=== PATIENT | female | born 1950 | race Caucasian/White ===

== ENCOUNTER 2020-03-30 11:10 | Outpatient (CLI) | payer MEDICARE, SELFPAY ==
--- NOTE | ~2020-03-30 | US_ITS ---
EXAMINATION: US venous doppler [facility] DATE: 03/30/2020 12:06 INDICATION: Bilateral lower limb pain. TECHNIQUE: Grayscale ultrasound images without and with compression and Doppler ultrasound images of the bilateral lower extremity veins were obtained. COMPARISON: 06/28/2011 FINDINGS: The visualized portions of right common femoral vein, profunda (deep) femoral vein, femoral vein, pop liteal vein, posterior tibial veins, peroneal veins, gastrocnemius vein and greater saphenous vein ou tflow are patent. 10.5 x 4.9 x 1.8 cm anechoic Garcia cyst at the right popliteal fossa. Noncompressible thrombus in the left lesser saphenous vein and in one of the paired posterior tibial veins at the left calf. The visualized portions of left common femoral vein, profunda femoral vein, f emoral vein, popliteal vein, peroneal veins, gastrocnemius vein and greater saphenous vein outflow ar e patent. 5.9 x 3.4 x 1.8 cm anechoic Garcia's cyst at the left popliteal fossa. IMPRESSION: 1. Deep venous thrombosis in the left knee in one of the paired posterior tibial veins at the left c kip with additional thrombus in the left lesser saphenous vein. 2. No deep venous thrombosis in the right lower limb. 3. Bilateral Garcia's cysts. Reviewed, dictated and finalized at location A. IMPRESSION: 1. Deep venous thrombosis in the left knee in one of the paired posterior tibi al veins at the left calf with additional thrombus in the left lesser saphenous vein. 2. No deep venous thrombosis in the right lower limb. 3. Bilateral Garcia's cysts.
--- NOTE | ~2020-03-30 | XR_ITS ---
XR knee RT 3V, XR knee LT 3V 03/30/2020 12:10 Indication: Bilateral knee pain Procedure: 3 views of each knee Comparison: 12/26/2013 Findings: There is severe bilateral tricompartment osteoarthritis of the knees. Small bilateral knee effusions. No acute fracture or traumatic malalignment. No focal soft tissue abnormality. No radiopaq ue foreign bodies. Impression: 1: Severe bilateral tricompartment osteoarthritis of the knees. Reviewed, dictated and finalized at location A. Impression: 1: Severe bilateral tricompartment osteoarthritis of the knees. Impression: 1: Severe bilateral tricompartment osteoarthritis of the knees.
== END 2020-03-30 11:11 | disposition home or self-care (01) ==
LOC: ANHIMG 11:12
PROVIDERS: PCP Family Medicine; Visit Provider Family Medicine
DX: M79.669 Pain in unspecified lower leg (principal); Z91.89 Other specified personal risk factors, not elsewhere classified; M25.561 Pain in right knee; M25.562 Pain in left knee; I82.442 Acute embolism and thrombosis of left tibial vein; I82.492 Acute embolism and thrombosis of other specified deep vein of left lower extremity; M71.22 Synovial cyst of popliteal space [Baker], left knee; M71.21 Synovial cyst of popliteal space [Baker], right knee; M17.0 Bilateral primary osteoarthritis of knee
CPT/HCPCS: 73562; 93970

== ENCOUNTER 2020-09-17 06:53 | Outpatient (NON) | payer MEDICARE, SELFPAY ==
[2020-09-18 14:04] LABS: SARS-CoV-2 RNA PCR Negative
== END 2020-09-17 06:54 ==
LOC: ANHCOVIDDT 07:19
PROVIDERS: PCP Family Medicine; Visit Provider Physician Assistant
DX: Z20.828 Contact with and (suspected) exposure to other viral communicable diseases (principal)
CPT/HCPCS: 87635; C9803; U0003

== ENCOUNTER 2020-10-07 11:14 | Outpatient (NON) | payer MEDICARE, SELFPAY ==
[2020-10-07 23:58] LABS: SARS-CoV-2 RNA PCR Positive
== END 2020-10-07 11:15 ==
LOC: ANHCOVIDDT 11:15
PROVIDERS: PCP Family Medicine; Visit Provider Family Medicine
DX: U07.1 COVID-19 (principal)
CPT/HCPCS: 87635; C9803; U0003

== ENCOUNTER 2020-10-22 22:34 | Emergency (ER) | payer MEDICARE, SELFPAY ==
--- NOTE | ~2020-10-22 | XR_ITS ---
XR chest 2V 10/22/2020 23:21 Indication: SVT. Procedure: AP and lateral views of the chest Comparison: 06/27/2011 Findings: There is peripheral infiltrates of the right mid and lower lung zones. There is a hiatal he rnia. Heart size normal. Prominent right cardiophrenic angle fat pad. No significant effusion or pneu mothorax. Impression: 1: Peripheral infiltrates of the right mid and lower lung zone which may represent pneumonia versus a telectasis/scarring. Reviewed, dictated and finalized at location A. [facility] D[employer] DEPARTMENT Impression: 1: Peripheral infiltrates of the right mid and lower lung zone which may repres ent pneumonia versus atelectasis/scarring.
--- NOTE | 2020-10-22 22:30 | ED.ARRPALP ---
HPI - Arrhythmia/Palpitations General Chief Complaint: Arrhythmia/Palpitations Stated Complaint: SVT resolved Source: patient and EMS Mode of arrival: EMS Limitations: no limitations History of Present Illness HPI narrative: Patient is a 69-year-old female with a history of hypertension, prediabetes, anticoagulated on Xarelto, nonambulatory, who presents for evaluation of palpitations. Patient reportedly experienced palpitations while laying in bed, denied any chest pain, shortness of breath, but felt flushed. Patient called EMS and at the time of arrival, patient was noted to be slightly hypotensive and tachycardic at the 200s with rhythm strip consistent with SVT. Patient was given 6 mg of adenosine by EMS with improvement in tachycardia to sinus rhythm and complete symptom resolution. Patient presents without any current complaints. She states she feels well. She denies any chest pain. Patient states she was diagnosed with Covid infection at the end of September but never required hospitalization. She denies any current chest pain, shortness of breath, lightheadedness or dizziness. No recent medication changes. She does take thyroid medication and has not changed this recently. Related Data Allergies Allergy/AdvReac Type Severity Reaction Status Date / Time nitrofurantoin Allergy Unknown Skin Verified 08/13/20 09:31 Reaction TAPE Allergy Mild RASH Uncoded 08/13/20 09:31 Review of Systems Review of Systems: Narrative: CONSTITUTIONAL: Denies fever, chills, or sweats. EYES: Denies visual changes, redness, or discharge. ENT: Denies rhinorrhea, congestion, sore throat, or otalgia. CARDIOVASCULAR: Denies current chest pain, palpitations, or edema. RESPIRATORY: Denies cough or dyspnea. GASTROINTESTINAL: Denies abdominal pain, nausea, vomiting, or diarrhea. GENITOURINARY: Denies dysuria or hematuria. SKIN: Denies rash or itching. MUSCULOSKELETAL: Denies back pain, joint pain, or myalgia. NEUROLOGIC: Denies headache, numbness, or weakness. PSYCHIATRIC: History of anxiety and depression PMFSH Past Medical History Medical History Ambulatory dysfunction Depressive disorder, not elsewhere classified Detached retina (12/31/14) Essential (primary) hypertension Hypertension Hypothyroidism, unspecified Knee pain, bilateral Metabolic syndrome Physical deconditioning Prediabetes Screening for breast cancer Surgical History Surgical History H/O cataract extraction 06/01/2014 05/01/2014 H/O hernia repair (06/01/11) H/O: hysterectomy (2002) Total Family History Family History Other No family history of cardiovascular disease Social History Social History Smoking status: Current every day smoker Alcohol intake: never Gender identity (if verbalized by the patient): Female Exam Narrative: Exam Narrative: GENERAL: Awake, alert, conversant HEAD: Normocephalic, atraumatic. EYES: PERRLA and EOMI. ENT: Nares clear, no rhinorrhea or epistaxis. Mucous membranes moist. NECK: Supple. CHEST: No respiratory distress, breathing even and non labored HEART: Tachycardic rate, sinus rhythm ABDOMEN: Obese, Non distended, non tender EXTREMITIES: Normal range of motion. No edema. SKIN: Pale, warm, dry, no rash. NEURO:No focal deficits. Alert and oriented x3 Course Vital Signs Vital signs: Vital Signs Temperature 37.0 C 10/22/20 22:39 Pulse Rate 108 H 10/22/20 22:39 Respiratory Rate 20 10/22/20 22:39 Blood Pressure 122/73 10/22/20 22:39 Pulse Oximetry 97 10/22/20 22:39 Temperature 37.0 C 10/22/20 22:39 Pulse Rate 98 10/22/20 23:25 Respiratory Rate 18 10/22/20 23:25 Blood Pressure 142/83 H 10/22/20 23:25 Pulse Oximetry 94 10/22/20 23:25 MDM - Arrhythmia/Palpitat
--- NOTE | 2020-10-22 22:31 | ECG_ITS ---
Measurements Intervals [place] Rate: 109 P: 179 ID: 251 QRS: -87 QRSD: 138 T: 5 QT: 362 QTc: 489 Interpretive Statements SINUS TACHYCARDIA RIGHT BUNDLE BRANCH BLOCK LEFT ANTERIOR FASCICULAR BLOCK BASELINE ARTIFACT- I, II, AVR, AVF ABNORMAL ECG Electronically Signed On 10-23-2020 7:37:00 BEAUTICIAN APPRENTICE by Aden Hampton D.O.
[2020-10-22 22:39] VITALS: BP 122/73; PULSE 108; RESP 20; TEMP 37; O2SAT 97
[2020-10-22 22:47] VITALS: PULSE 106
[2020-10-22] MEDS: SODIUM CHLORIDE 0.9% IV 500 ML 999 ML IV CONT (22:50)
[2020-10-22 23:01] LABS: Basophils Percent Auto 0.4 % (0.2-1.2); Eosinophils Absolute Auto 0.1 K/mm3 (0-0.3); Eosinophils Percent Auto 0.6 % (0-4.4); Hematocrit 47.4 % (37.0-47.0); Hemoglobin 14.9 g/dL (12.0-15.0); Immature Granulocyte Absolute 0.03 K/mm3 (0.00-0.031); Immature Granulocyte Percent A 0.4 % (0-0.5); Lymphocytes Absolute Auto 2.42 K/mm3 (0.9-3.2); Lymphocytes Percent Auto 29.9 % (18.3-44.2); Mean Corpuscular HGB Conc 31.4 g/dl (32-36); Mean Corpuscular Hemoglobin 27.6 pg (26-34); Mean Corpuscular Volume 87.9 fl (80-100); Mean Platelet Volume 10.6 fl (7.4-10.4); Monocytes Absolute Auto 0.7 K/mm3 (0.1-0.6); Monocytes Percent Auto 8.1 % (2.6-8.5); Neutrophils Absolute Auto 4.9 K/mm3 (1.3-6.7); Neutrophils Percent Auto 60.6 % (45.5-73.1); Platelet Count Result 267 k/mm3 (150-375); Red Blood Count 5.39 M/mm3 (4.2-5.4); Red Cell Distribution Width 18.2 % (11.5-14.5); White Blood Count 8.1 K/mm3 (4.5-10.0)
[2020-10-22 23:20] LABS: Anion Gap 7 mmol/L (8-16); Blood Urea Nitrogen 21 mg/dL (7-17); Carbon Dioxide 31 mmol/L (22-30); Chloride 102 mmol/L (98-107); Estimated CRCL calculation 76 ml/min; Estimated Glomerular Filt Rate > 60; Glucose 170 mg/dL (65-105); Potassium 3.7 mmol/L (3.4-5.0); Sodium 140 mmol/L (137-145)
[2020-10-22 23:25] VITALS: BP 142/83; PULSE 98; RESP 18; O2SAT 94
--- NOTE | 2020-10-22 23:36 | PC.NURSE ---
[facility] called and update ETA to 0040
[2020-10-23 00:48] VITALS: PULSE 86; RESP 16; O2SAT 96
== END 2020-10-23 01:13 | disposition home or self-care (01) ==
PROVIDERS: Emergency Provider Emergency Medicine; PCP Family Medicine
DX: I47.1 Supraventricular tachycardia (principal); J18.9 Pneumonia, unspecified organism; Z79.01 Long term (current) use of anticoagulants; Z86.19 Personal history of other infectious and parasitic diseases
CPT/HCPCS: 36415; 71046; 80048; 84443; 85025; 93005; 96360; 99283; J7040

== ENCOUNTER 2021-01-07 10:40 | Outpatient (CLI) | payer MEDICARE, SELFPAY | END 2021-01-07 10:41 | disposition home or self-care (01) | LOC: ANHCOVIDVC 10:40 | PROVIDERS: PCP Family Medicine | DX: Z23 Encounter for immunization (principal) | CPT/HCPCS: 0001A; 91300 ==

== ENCOUNTER 2021-01-28 10:40 | Outpatient (CLI) | payer MEDICARE, SELFPAY | END 2021-01-28 10:41 | disposition home or self-care (01) | LOC: ANHCOVIDVC 10:40 | PROVIDERS: PCP Family Medicine | DX: Z23 Encounter for immunization (principal) | CPT/HCPCS: 0002A; 91300 ==

== ENCOUNTER 2021-12-15 12:35 | Emergency (ER) | payer MEDICARE, SELFPAY ==
--- NOTE | ~2021-12-15 | XR_ITS ---
XR knee RT 3V DATE: 12/15/2021 13:05 INDICATION: Medial knee pain. No injury. TECHNIQUE: 3 views including crosstable lateral COMPARISON: 03/30/2020 right knee FINDINGS: There is prominent tricompartment osteophytosis, but decreased severe at the medial compart ment with [id number]. There is particular spurring at all 3 compartments. Diffuse osteopenia. No fracture, dislocation, periosteal reaction or bone destruction is evident. There is evidence of schroeder prapatellar knee joint effusion. IMPRESSION: Severe tricompartment osteophytes, particularly severe at the medial compartment Joint effusion Osteopenia Reviewed, dictated and finalized at location B. NGUAL SALES REPRESENTATIVE IMPRESSION: Severe tricompartment osteophytes, particularly severe at the media l compartment Joint effusion Osteopenia
[2021-12-15 12:36] VITALS: BP 160/103; PULSE 63; RESP 14; TEMP 36.9; O2SAT 98
--- NOTE | 2021-12-15 12:54 | ED.EXTPRO ---
HPI - Extremity Problem General Chief complaint: Extremity Problem,Nontraumatic Stated complaint: right knee pain Time Seen by Provider: 12/15/21 12:39 Source: patient Mode of arrival: EMS Limitations: no limitations History of Present Illness HPI Narrative: Patient is a 71-year-old female complaining of right knee pain, moderate, dull, worse with walking and movement started 2 days ago. Patient states that she might of turned the wrong way and that could have caused her pain. Patient states that she has severe arthritis of her knees, [id number] . Patient denies any calf pain. States that she has a history of DVT on the left lower extremity and currently on Xarelto for it. Patient denies any chest pain, shortness of breath, fever or chills. Related Data Allergies Allergy/AdvReac Type Severity Reaction Status Date / Time nitrofurantoin Allergy Unknown Skin Verified 12/15/21 12:43 Reaction TAPE Allergy Mild RASH Uncoded 12/15/21 12:43 Review of Systems Review of Systems: Per HPI All systems reviewed & are unremarkable except as noted in HPI and below PMFSH Past Medical History Medical History Ambulatory dysfunction Depressive disorder, not elsewhere classified Detached retina (12/31/14) Essential (primary) hypertension Hepatitis C antibody test negative (02/25/18) Hypertension Hypothyroidism, unspecified Knee pain, bilateral Metabolic syndrome Physical deconditioning Prediabetes Screening for breast cancer Surgical History Surgical History H/O cataract extraction 06/01/2014 05/01/2014 H/O hernia repair (06/01/11) H/O: hysterectomy (2002) Total Family History Family History Other No family history of cardiovascular disease Social History Social History Alcohol intake: never Substance use: never Substance use type: does not use Gender identity (if verbalized by the patient): Female Spiritual care concerns: Yes (Rastafarian) Agree to blood products: Yes Exam Const: General: cooperative, comfortable, no acute distress, well developed, alert and awake; No confusion Orientation/consciousness: oriented to person, oriented to place, oriented to time, patient oriented x3 and No confusion Limitations: no limitations Other: Morbidly obese HENMT: Head: normal to inspection, normocephalic and atraumatic Ears: hearing grossly normal bilaterally, TM normal on the right and TM normal on the left General nose exam: Normal external nose present, Normal nares present and No nasal discharge present Face and sinus: normal facial exam Mouth: Yes Normal oral and palatal mucosa present, Yes lip normal, Yes tongue normal and Yes oropharynx normal Throat: posterior oropharynx normal, tonsils normal and uvula midline Eyes: General: appearance normal, both eyes and all related structures Conjunctivae: conjunctivae normal Neck: Neck: normal visual inspection, full ROM and no meningeal signs Resp: Effort & Inspection: normal respiratory effort, able to speak in complete sentences, no respiratory distress and not tachypneic Auscultation: clear to auscultation bilaterally, no crackles, no rales, no rhonchi and no wheezes Cardio: Rate: regular rate Rhythm: regular rhythm GI: Inspection: normal to inspection GI Palp: No abdominal tenderness, Yes Soft to palpation, No Tenderness to palpation present (GI), No Guarding due to palpation present (GI), No Rigid due to palpation and No Rebound tenderness present Auscultation: normal bowel sounds : General: Yes no CVA tenderness Skin: General skin exam: normal color, no rashes or lesions noted, elasticity normal and turgor normal Neuro: General: oriented to person, oriented to place, oriented to time, patient oriented x3, tone normal, moves a
[2021-12-15] MEDS: HYDROcodone/acetaminophen (*CRX) 5-325 MG TABLET 1 TAB PO (14:30)
[2021-12-15 15:27] VITALS: BP 157/97; PULSE 64; RESP 18; O2SAT 97
== END 2021-12-15 15:30 | disposition home or self-care (01) ==
PROVIDERS: Emergency Provider Emergency Medicine; PCP Family Medicine
DX: S86.911A Strain of unspecified muscle(s) and tendon(s) at lower leg level, right leg, initial encounter (principal); I10 Essential (primary) hypertension; E03.9 Hypothyroidism, unspecified; R73.03 Prediabetes; E88.81 Metabolic syndrome and other insulin resistance; Z86.718 Personal history of other venous thrombosis and embolism; Z79.01 Long term (current) use of anticoagulants; Z98.42 Cataract extraction status, left eye; Z98.41 Cataract extraction status, right eye; X50.9XXA Other and unspecified overexertion or strenuous movements or postures, initial encounter
CPT/HCPCS: 73562; 99283; A9270

== ENCOUNTER 2022-06-09 08:24 | Outpatient (CLI) | payer MEDICARE, SELFPAY ==
--- NOTE | ~2022-06-09 | MM_ITS ---
EXAMINATION: MM screening [facility] BI w chrissy HISTORY: Screening mammogram TECHNIQUE: Craniocaudal and mediolateral oblique 3-D tomosynthesis images were obtained and synthetic 2-D images were generated. CAD analysis was submitted and interpreted. COMPARISON: 10/12/2015, 10/07/2013, 09/03/2012 BREAST PARENCHYMAL COMPOSITION: The breasts are almost entirely fatty. FINDINGS: Scattered benign-appearing calcifications are present. There is no suspicious mass, calcifi cation, or architectural distortion to suggest malignancy in either breast. There has been no suspici ous interval change. IMPRESSION: 1. No mammographic evidence of malignancy. 2. Recommend routine screening mammography in one year. BI-RADS Category 2: Benign finding(s). Reviewed, dictated and finalized at location A.
== END 2022-06-09 08:25 | disposition home or self-care (01) ==
PROVIDERS: PCP Family Medicine; Visit Provider Family Medicine
DX: Z12.31 Encounter for screening mammogram for malignant neoplasm of breast (principal)
CPT/HCPCS: 77063; 77067

== ENCOUNTER 2022-11-22 11:18 | Inpatient (IN) | payer MEDICARE, SELFPAY ==
[2022-11-22] VITALS (33 sets, daily range): BP systolic 67–126; BP diastolic 30–92; PULSE 54–104; RESP 14–20; TEMP 35.8–36.4; O2SAT 71–100; BMI 65.0
--- NOTE | ~2022-11-22 | US_ITS ---
EXAMINATION: US renal BI DATE: 11/23/2022 14:56 INDICATION: acute kidney injury TECHNIQUE: Multiple grayscale and Doppler ultrasound images of the kidneys were obtained. COMPARISON: None. FINDINGS: Somewhat limited visualization due to body habitus. The right kidney measures 11.4 x 5.9 x 5.4 cm. Th e left kidney measures 11.0 x 6.9 x 4.0 cm. The kidneys demonstrate normal parenchymal echogenicity. There is no hydronephrosis. The bladder is decompressed by a Leo catheter. IMPRESSION: Unremarkable renal sonogram findings. Reviewed, dictated and finalized at location K. ULA MAKER
--- NOTE | ~2022-11-22 | XR_ITS ---
XR chest 2V 11/29/2022 09:12 Indication: Shortness of breath Procedure: AP and lateral views the chest Comparison: Comparison to multiple prior studies sequentially, with oldest reviewed study dated 04/2006. Findings: Bibasilar atelectasis. Moderate size hiatal hernia. Stable cardiomediastinal silhouette. No focal pneumonia, edema, significant effusion or pneumothorax. Impression: 1: Bibasilar atelectasis. 2: Moderate size hiatal hernia. Reviewed, dictated and finalized at location A. ICAL LIAISON Impression: 1: Bibasilar atelectasis. 2: Moderate size hiatal hernia.
--- NOTE | ~2022-11-22 | CT_ITS ---
EXAMINATION: CT brain wo con DATE: 11/23/2022 16:00 INDICATION: Hallucinations TECHNIQUE: Computed tomography (CT) of the head was performed without intravenous contrast. Sagittal and coronal reconstructions were performed. The mA was adjusted according to patient size. Iterative reconstruction technique was employed. The dose-length product was 605.33 mGy-cm. COMPARISON: None FINDINGS: No acute intracranial hemorrhage, acute infarction or abnormal extra axial fluid collection. There is mild scattered white matter hypoattenuation consistent with chronic small vessel ischemic disease. Ventricles are normal and symmetric. No mass/mass effect. Changes of bilateral intraocular lens repla cement. The orbits and mastoid air cells are normal. Small amount of bubbly mucus dependently in the posterior most left ethmoid air cell. IMPRESSION: 1. No acute intracranial process. 2. Mild scattered white matter hypoattenuation consistent with chronic small vessel ischemic disease. Reviewed, dictated and finalized at location B. ITY OPERATOR IMPRESSION: 1. No acute intracranial process. 2. Mild scattered white matter hypoattenuation consistent with chronic small ve ssel ischemic disease.
--- NOTE | ~2022-11-22 | XR_ITS ---
EXAMINATION: XR chest 1V portable DATE: 11/22/2022 13:54 INDICATION: Shortness of breath. TECHNIQUE: A single frontal view of the chest was obtained. COMPARISON: Chest 2 views 10/22/2020, chest CT 06/27/2011 FINDINGS: Sensitivity is decreased by obesity. Mediastinal lipomatosis is noted. No pneumonia, pleura l effusion, or pneumothorax. The heart size is normal. There is a moderate-sized hiatal hernia. IMPRESSION: 1. Moderate-sized hiatal hernia. 2. Sensitivity is decreased by obesity. Reviewed, dictated and finalized at location A. SSIONS SUPERVISOR
--- NOTE | 2022-11-22 12:41 | ED.WOUNDLAC ---
HPI - Wound/Laceration General Chief Complaint: Wound/Laceration Stated Complaint: uti, bed sores, hallucinations x 3 weeks since glf Time Seen by Provider: 11/22/22 12:03 History of Present Illness HPI narrative: Patient is a 71-year-old female with a history of hypertension, hyperlipidemia, hypothyroidism, hyperlipidemia, long-term anticoagulation on Xarelto presenting with altered mental status and pressure sores. Patient states that she is largely sedentary and she lives by herself. States that over the last 3 weeks she has developed pressure sores on her buttocks and upper thighs. States that they have actually improved over the last week as she has been applying baby powder and trying to readjust herself. Patient states that she has also had some intermittent shortness of breath. Reports some dysuria, states that she has taken a couple doses of antibiotics from her PCP. Also reports hallucinating and seeing her throughout her apartment. Denies fever, headache, chest pain, cough, abdominal pain, vomiting, diarrhea, constipation. Reports several weeks of leg swelling bilaterally. Related Data Home Medications Medication Instructions Recorded Confirmed levothyroxine 175 mcg tablet 175 mcg PO DAILY 11/22/22 11/22/22 metoprolol tartrate 25 mg tablet 25 mg PO DAILY 11/22/22 11/22/22 omeprazole 40 mg capsule,delayed 40 mg PO DAILY 11/22/22 11/22/22 release paroxetine HCl 40 mg tablet 20 mg PO HS 11/22/22 11/22/22 quinapril 20 1 tablet PO DAILY 11/22/22 11/22/22 mg-hydrochlorothiazide 25 mg tablet rivaroxaban 20 mg tablet (Xarelto) 20 mg PO DAILY 11/22/22 11/22/22 simvastatin 20 mg tablet 20 mg PO HS 11/22/22 11/22/22 Allergies Allergy/AdvReac Type Severity Reaction Status Date / Time adhesive tape Allergy Mild Rash Verified 11/23/22 15:08 nitrofurantoin Allergy Unknown Skin Verified 11/22/22 19:52 Reaction Review of Systems Review of Systems: All systems reviewed & are unremarkable except as noted in HPI and below PMFSH Past Medical History Medical History (Updated 11/24/22 @ 16:03 by Melissa Lucas MD) Chronic anticoagulation Deep venous thrombosis Depression Detached retina (12/31/14) Hypertension Hypothyroidism Metabolic syndrome Mixed hyperlipidemia Morbid obesity Prediabetes Small bowel obstruction (06/2011) Secondary to incarcerated incisional hernia. Surgical History Surgical History (Updated 11/22/22 @ 17:05 by Julianne Dorado PA-C) History of cataract extraction (2013) History of section History of incisional hernia repair (06/27/11) Incarcerated incisional hernia repair with mesh. History of total hysterectomy (2002) Family History Family History Father Esophageal cancer Mother Sepsis Other No family history of cardiovascular disease Social History Social History (Updated 11/22/22 @ 17:03 by Julianne Dorado PA-C) Social History: Surrogate medical decision maker: Arnel Griffith, son. Code status: Full code. Smoking packs per day: 1 Smoking cigarettes per day: 20.0 Years smoked: 10 Smoking pack-years: 10.00 Smoking status: Former smoker Alcohol intake: never Substance use: never Substance use type: does not use Lack of Transportation: No Lack of Food: Never True Current Housing: I Have Housing Concerned About Future Housing: No Difficulty Paying Gas/Electric Bills: No Difficulty Paying for Meds: No Currently Unemployed: No Education: Associate Degree Difficulty w/ Childcare or Family Care: No Living arrangements: alone Additional living arrangements comments: Lives in a ranch style home in [place]. for 3 years. Has 3 grown children. 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 Spiritual care concerns: Yes Agree to blood products: Yes Exam Narrati
--- NOTE | 2022-11-22 12:49 | ECG_ITS ---
Measurements Intervals [place] Rate: 54 P: -32 HI: 128 QRS: -18 QRSD: 162 T: 6 QT: 475 QTc: 452 Interpretive Statements SINUS BRADYCARDIA RIGHT BUNDLE BRANCH BLOCK BASELINE ARTIFACT- I, II, III, AVR, AVL, AVF, V1-V6 ABNORMAL ECG COMPARED TO ECG 10/22/2020 22:41:48 SINUS BRADYCARDIA NOW PRESENT Electronically Signed On 11-22-2022 15:03:13 CONSTRUCTION INSPECTOR by Aden Hampton D.O.
[2022-11-22 13:01] LABS: Influenza A QL RT-PCR Negative (Negative); Influenza B QL RT-PCR Negative (Negative); SARS-CoV-2 RNA PCR Negative
[2022-11-22 13:15] LABS: Basophils Percent Auto 0.4 % (0.2-1.2); Eosinophils Absolute Auto 0.1 K/mm3 (0-0.3); Eosinophils Percent Auto 0.7 % (0-4.4); Hematocrit 38.5 % (37.0-47.0); Hemoglobin 11.6 g/dL (12.0-15.0); Immature Granulocyte Absolute 0.03 K/mm3 (0.00-0.031); Immature Granulocyte Percent A 0.3 % (0-0.5); Lymphocytes Absolute Auto 1.68 K/mm3 (0.9-3.2); Lymphocytes Percent Auto 17.4 % (18.3-44.2); Mean Corpuscular HGB Conc 30.1 g/dl (32-36); Mean Corpuscular Hemoglobin 26.1 pg (26-34); Mean Corpuscular Volume 86.7 fl (80-100); Monocytes Absolute Auto 0.7 K/mm3 (0.1-0.6); Monocytes Percent Auto 7.3 % (2.6-8.5); Neutrophils Absolute Auto 7.1 K/mm3 (1.3-6.7); Neutrophils Percent Auto 73.9 % (45.5-73.1); Platelet Count Result 305 k/mm3 (150-375); Red Blood Count 4.44 M/mm3 (4.2-5.4); Red Cell Distribution Width 18.5 % (11.5-14.5); White Blood Count 9.7 K/mm3 (4.5-10.0)
[2022-11-22 13:24] LABS: Lactic Acid Reflex 1.5 mmol/L (0.7-2.0)
[2022-11-22 13:27] LABS: INR 2.5
[2022-11-22 13:28] LABS: Partial Thromboplastin Time 36.9 SECONDS (22.3-36.8)
[2022-11-22 13:31] LABS: Alanine Aminotransferase 15 U/L (6-35); Albumin Level 3.2 g/dL (3.5-5.1); Alkaline Phosphatase 65 U/L (38-126); Anion Gap 5 mmol/L (8-16); Aspartate Amino Transferase 22 U/L (14-36); Bilirubin,Total 0.6 mg/dL (0.2-1.3); Blood Urea Nitrogen 57 mg/dL (7-17); Calcium 8.9 mg/dL (8.4-10.2); Carbon Dioxide 32 mmol/L (22-30); Chloride 105 mmol/L (98-107); Estimated CRCL calculation 28 ml/min; Estimated Glomerular Filt Rate 16; Glucose 122 mg/dL (65-110); Potassium 3.3 mmol/L (3.4-5.0); Sodium 142 mmol/L (137-145)
[2022-11-22 13:42] LABS: NT Pro B Type Natriuretic Pept 495 pg/mL (19.9-100); Troponin I < 0.012 ng/mL (0.000-0.034)
[2022-11-22 14:48] LABS: Appearance Urine Clear (Clear); Bilirubin Urine Negative (Negative); Blood Urine Trace-lysed (Negative); Color Urine Yellow (Yellow); Glucose Urine UA Negative (Negative); Ketones Urine Negative (Negative); Leukocyte Esterase Ur Trace LEU/UL (Negative); Nitrate Urine Positive (Negative); Protein Urine 1+ mg/dL (Negative); Specific Grav Ur 1.015 (1.001-1.035); Urobilinogen Urine 0.2 mg/dL (<2.0)
[2022-11-22 15:05] LABS: Bacteria Urine Trace /hpf; Mucus Urine Rare /lpf; Squamous Epithelial Cell Urine Moderate /hpf (Few)
[2022-11-22 15:12] LABS: Add Urine Microscopic? YES
[2022-11-22] MEDS: cefTRIAXone 2 GM in SODIUM CHLORIDE 0.9% IV 100 ML 200 ML IVPB (15:14)
[2022-11-22] MEDS: SODIUM CHLORIDE 0.9% IV 1,000 ML 999 ML IV CONT ×2 (15:29→17:47)
--- NOTE | 2022-11-22 16:15 | PM.IMHP ---
H&P: HPI History of Present Illness Date/Time: 11/22/22 16:15 Chief Complaint: Hallucinations and bed sores. Narrative: This is a very pleasant 71-year-old female with morbid obesity, hypertension, hyperlipidemia, hypothyroidism, depression, and DVT on rivaroxaban who presented to the emergency department via EMS from home for evaluation of hallucinations and bedsores. She is alert and oriented x4 and she provides the following history. She for 3 years and lives in her own ranch style home. She has an aide that comes in 15 hours a week however recently that 8 has become ill and she is getting less help at home. She gets up to eat and to have bowel movements but it sounds like she spends a majority of her time in a recliner. She has been incontinent of urine for several years and she wears depends and uses pads at home. More recently she has developed some pressure sores on the posterior thighs that she has been caring for at home these past few weeks and she notes that they have improved though she wanted them to be checked out today. More over she is concerned that she has been having intermittent hallucinations the last several months, she frequently sees her and people that are not supposed to be in her home. She knows they are not there however she continues to see them throughout the home. She denies fever, chills, sweats, vertigo, headache, neck pain, sinus congestion, sore throat, visual changes, focal weakness, paresthesias, difficulty speaking and swallowing, fall, head trauma, chest pain, pleuritic pain, palpitations, shortness of breath, nausea, vomiting, diarrhea, and dysuria. No auditory and tactile hallucinations. She was afebrile on arrival to the ED. Initial blood pressure was 96/62 however her systolics have been over 100 since that time with a more appropriate size cuff. Pertinent labs include a WBC of 9.7, sodium 142, potassium 3.3, BUN 57, creatinine 2.90 (baseline creatinine is around 0.80), TSH 3.500. Leo catheter was inserted on arrival in yielded approximately 300 cc of clear yellow urine which was positive for nitrates, trace leukocyte esterase, 10 to 15 WBC, and trace bacteria however moderate squamous cells and mucus were noted. She is being admitted in this setting for further evaluation of acute kidney injury. With further questioning she has been eating and drinking as usual. She denies concerns for urinary retention. She has not been started on any new medication recently (antidepressant dose increased in September). No NSAID use. Review of Systems Review of Systems: Twelve systems were reviewed and are negative except for as per HPI. [facility] Past Medical History Medical History (Updated 11/22/22 @ 17:21 by Julianne Dorado PA-C) Chronic anticoagulation Deep venous thrombosis Depression Detached retina (12/31/14) Hypertension Hypothyroidism Metabolic syndrome Mixed hyperlipidemia Morbid obesity Prediabetes Small bowel obstruction (06/2011) Secondary to incarcerated incisional hernia. Surgical History Surgical History (Updated 11/22/22 @ 17:05 by Julianne Dorado PA-C) History of cataract extraction (2013) History of section History of incisional hernia repair (06/27/11) Incarcerated incisional hernia repair with mesh. History of total hysterectomy (2002) Family History Family History (Updated 11/22/22 @ 17:01 by Julianne Dorado PA-C) Father Esophageal cancer Mother Sepsis Other No family history of cardiovascular disease Social History Social History (Updated 11/22/22 @ 17:03 by Julianne Dorado PA-C) Social History: Surrogate medical decision maker: Arnel Griffith, son. Code status: Full code. Smoking status: Never smoker Alcohol intake: never Substance use: never Substance use type: does not use Lack of Transportation: No Lack of Food: Never True Current Housing: I Have Housing Concerned About Future Housing: No
[2022-11-22 17:26] LABS: Troponin I < 0.012 ng/mL (0.000-0.034)
--- NOTE | 2022-11-22 18:00 | PC.NURSE ---
Called to give report to RN to nurse at 1800. Spoke with [facility] stated nurse was not available. Ask nurse to call back. Pt was sent up to rroom 313.
--- NOTE | 2022-11-22 18:09 | PCRCNOTE ---
PT. IS BEING MOVED UP TO ROOM 313. ABI LEY ORDERED THE ABG AND STATES OK TO DO IT UPSTAIRS.
[2022-11-22 18:46] LABS: Alveolar/Arterial O2 Gradient 23.8 mmHg; Base Excess ABG -0.3 mEq/l (+/-2.0); Carboxyhemoglobin 0.2 % THb (0-2.0); Fractional Inspired Oxygen 21 %; HCO3 ABG 25.6 mEq/l (22.0-26.0); Methemoglobin ABG 0.3 %THb (0-1.5); Oxygen Content ABG 16.8 %vol (16.0-22.0); Oxygen Saturation ABG 93.4 % (95.0-100.0); Oxyhemoglobin 92.7 % THb (90.0-100.0); PCO2 ABG 46.4 mmHg (35.0-45.0); PO2 ABG 70.4 mmHg (80.0-100.0); PO2 FiO2 Ratio Arterial Blood 3.35 %; Reduced Hemoglobin 6.8 %THb (0-5.0); Total Hemoglobin 12.9 g/dL (12.0-18.0); pH ABG 7.359 (7.350-7.450)
[2022-11-22 18:47] LABS: Modified Allen's Test Pass; Site Drawn RIGHT RADIAL
--- NOTE | 2022-11-22 18:55 | PC.NURSE ---
Spoke with Charge nurse Radha from [facility]. Radha said the process I used was incorrect. I apologized to the nurse and explained that was not how i understood the process. She stated report had to be given before pt can come to the floor.
--- NOTE | 2022-11-22 19:16 | ADMGEN ---
This patient, Renae Griffith, was admitted to [facility] Surg Room 310-01. Patient/family oriented to hospital policies and general routines including ID bracelet, bed and alarms, visiting hours, pain management, procedures, bathroom and other care routines, personal items, smoking policy, room service/diet, and visiting hours. Information on how to activate the Rapid Response Team has been discussed. Patient/Family are encouraged to report perceived risks to care and to ask questions if they do not understand what they are told or what they should do.
[2022-11-22 19:18] LABS: Ammonia < 9 umol/L (9-30); Creatine Kinase 84 U/L (30-135)
[2022-11-22 19:29] LABS: Troponin I < 0.012 ng/mL (0.000-0.034)
[2022-11-22] MEDS: POTASSIUM CHLORIDE 20 MEQ TABLET PO (19:45)
[2022-11-22] MEDS: LACTATED RINGERS 1,000 ML 100 ML IV CONT (19:45)
[2022-11-23] VITALS: O2SAT 98
[2022-11-23 02:56] LABS: Creatinine Urine 64.4 mg/dL
[2022-11-23 03:46] LABS: Sodium Urine Random 72 meq/L
[2022-11-23] MEDS: LEVOTHYROXINE SODIUM 75 MCG TABLET PO (05:18)
[2022-11-23] MEDS: LEVOTHYROXINE SODIUM 100 MCG TABLET PO (05:18)
[2022-11-23 05:35] VITALS: BP 116/48; PULSE 67; RESP 16; TEMP 36.1; O2SAT 100
[2022-11-23 06:49] LABS: Hematocrit 35.9 % (37.0-47.0); Hemoglobin 10.9 g/dL (12.0-15.0); Mean Corpuscular HGB Conc 30.4 g/dl (32-36); Mean Corpuscular Hemoglobin 26.4 pg (26-34); Mean Corpuscular Volume 86.9 fl (80-100); Mean Platelet Volume 9.7 fl (7.4-10.4); Platelet Count Result 265 k/mm3 (150-375); Red Blood Count 4.13 M/mm3 (4.2-5.4); Red Cell Distribution Width 18.6 % (11.5-14.5)
[2022-11-23 07:02] LABS: Anion Gap 4 mmol/L (8-16); Blood Urea Nitrogen 44 mg/dL (7-17); Calcium 8.3 mg/dL (8.4-10.2); Carbon Dioxide 29 mmol/L (22-30); Chloride 108 mmol/L (98-107); Estimated CRCL calculation 31 ml/min; Estimated Glomerular Filt Rate 18; Glucose 106 mg/dL (65-110); Magnesium 2.2 mg/dL (1.6-2.3); Potassium 2.8 mmol/L (3.4-5.0); Sodium 141 mmol/L (137-145)
[2022-11-23 07:03] LABS: INR 1.6; Prothrombin Time 18.7 Seconds (11.1-14.7)
[2022-11-23 07:04] LABS: Partial Thromboplastin Time 34.3 SECONDS (22.3-36.8)
[2022-11-23] MEDS: POTASSIUM CHLORIDE 20 MEQ PACKET (FOR LIQUID) 60 MEQ PO (08:16)
[2022-11-23] MEDS: PANTOPRAZOLE 40 MG TABLET PO (08:17)
[2022-11-23] MEDS: PERFLUTREN LIPID MICROSPHERES 1.5 ML VIAL DILUTED TO 10 ML TOTAL VOLUME IV PUSH (11:40)
[2022-11-23 14:00] VITALS: BP 114/55; PULSE 75; RESP 20; TEMP 36.1; O2SAT 95
--- NOTE | 2022-11-23 14:31 | P.PNIM_ITS ---
Progress Note: A&P Assessment and Plan (1) Hallucinations: Code(s): R44.3 - Hallucinations, unspecified Status: Acute Assessment and Plan: The patient presented to the emergency department via EMS from home for evaluation of hallucinations and pressure sores. Neither of these concerns are acute; Hallucinations have been an intermittent issue since September. * Etiology of the hallucinations is not entirely clear. * She has not been started on any new medication recently and she denies alcohol and substance use. States that her antidepressant increased around the time that the hallucinations started. * Patient stated that hallucinations also started around the anniversary of her 's . * Patient reports not knowing any of the people she was loosening eating and they did not talk to her. She did have 1 episode of auditory hallucination of someone being on her door and all of a sudden a unknown man appeared into her bedroom. * She gives no history to suggest an acute underlying infection. * TSH within normal limits. Check B12, ammonia, and ABG within normal limits * She denies concerns for sleep apnea at though in the room acute complaints due to her hallucinations and body habitus are concerning thus will check an apnea link. * Psychiatric etiology seems less likely. * Blood cultures pending * Fall precautions initiated. * CT head ordered (2) Pressure sore: Code(s): L89.90 - Pressure ulcer of unspecified site, unspecified stage Status: Acute Assessment and Plan: The patient presented to the emergency department via EMS from home for evaluation of hallucinations and pressure sores. Neither of these concerns are acute; the pressure sores developed within the last month and are improving. * Wound care consulted * Sores do not appear to be infected * Blood cultures pending (3) Acute kidney injury: Code(s): N17.9 - Acute kidney failure, unspecified Status: Acute Assessment and Plan: She does have an acute kidney injury which may be causing some of the confusion/hallucinations. * Regarding the acute kidney injury, her BUN and creatinine were normal in September 2020. * Leo catheter has been inserted for strict I/O. She was not retaining urine and 300 cc were yielded upon insertion. * Again, she has not been started on any new medications recently. * She may be a bit dehydrated though she says she has been eating and drinking as usual. * Renal ultrasound ordered. * Quinapril and HCTZ have been placed on hold. Continue PPI for now. * Check CK given lack of mobility and concomitant statin use. * UA abnormal * Urine culture pending (4) Abnormal urinalysis: Code(s): R82.90 - Unspecified abnormal findings in urine Status: Acute Assessment and Plan: Abnormal urinalysis * Urine culture pending * Going to start on Rocephin due to positive nitrates and leukocytes. * Tailor antibiotic therapy to the cultures and sensitivities. (5) Hypokalemia: Code(s): E87.6 - Hypokalemia Status: Acute Assessment and Plan: Replenish electrolytes as needed (6) Physical deconditioning: Code(s): R53.81 - Other malaise Status: Acute Assessment and Plan: The pressure sores are due to her physical deconditioning and limited mobility. * Wound care consulted * PT OT ordered (7) Pedal edema: Code(s): R60.0 - Localized edema Status: Acut
--- NOTE | 2022-11-23 14:31 | PM.IMPN ---
Progress Note: A&P Assessment and Plan (1) Hallucinations: Code(s): R44.3 - Hallucinations, unspecified Status: Acute Assessment and Plan: The patient presented to the emergency department via EMS from home for evaluation of hallucinations and pressure sores. Neither of these concerns are acute; Hallucinations have been an intermittent issue since September. Etiology of the hallucinations is not entirely clear. She has not been started on any new medication recently and she denies alcohol and substance use. States that her antidepressant increased around the time that the hallucinations started. Patient stated that hallucinations also started around the anniversary of her 's . Patient reports not knowing any of the people she was loosening eating and they did not talk to her. She did have 1 episode of auditory hallucination of someone being on her door and all of a sudden a unknown man appeared into her bedroom. She gives no history to suggest an acute underlying infection. TSH within normal limits. Check B12, ammonia, and ABG within normal limits She denies concerns for sleep apnea at though in the room acute complaints due to her hallucinations and body habitus are concerning thus will check an apnea link. Psychiatric etiology seems less likely. Blood cultures pending Fall precautions initiated. CT head ordered (2) Pressure sore: Code(s): L89.90 - Pressure ulcer of unspecified site, unspecified stage Status: Acute Assessment and Plan: The patient presented to the emergency department via EMS from home for evaluation of hallucinations and pressure sores. Neither of these concerns are acute; the pressure sores developed within the last month and are improving. Wound care consulted Sores do not appear to be infected Blood cultures pending (3) Acute kidney injury: Code(s): N17.9 - Acute kidney failure, unspecified Status: Acute Assessment and Plan: She does have an acute kidney injury which may be causing some of the confusion/hallucinations. Regarding the acute kidney injury, her BUN and creatinine were normal in September 2020. Leo catheter has been inserted for strict I/O. She was not retaining urine and 300 cc were yielded upon insertion. Again, she has not been started on any new medications recently. She may be a bit dehydrated though she says she has been eating and drinking as usual. Renal ultrasound ordered. Quinapril and HCTZ have been placed on hold. Continue PPI for now. Check CK given lack of mobility and concomitant statin use. UA abnormal Urine culture pending (4) Abnormal urinalysis: Code(s): R82.90 - Unspecified abnormal findings in urine Status: Acute Assessment and Plan: Abnormal urinalysis Urine culture pending Going to start on Rocephin due to positive nitrates and leukocytes. Tailor antibiotic therapy to the cultures and sensitivities. (5) Hypokalemia: Code(s): E87.6 - Hypokalemia Status: Acute Assessment and Plan: Replenish electrolytes as needed (6) Physical deconditioning: Code(s): R53.81 - Other malaise Status: Acute Assessment and Plan: The pressure sores are due to her physical deconditioning and limited mobility. Wound care consulted PT OT ordered (7) Pedal edema: Code(s): R60.0 - Localized edema Status: Acute Assessment and Plan: She has bilateral lower extremity edema which is likely dependent edema though will check an echocardiogram to assess hard however proBNP is less than 500. Echo revealed EF of 60 65%, left ventricular hypertrophy, grade 1 diastolic function, normal pulmonary pressures, dilated inferior vena cava with greater than 50% collapse with inspiration consistent with elevated right are to your pressure of 10 mm Hg, trivial pericardial effusion Plan M
[2022-11-23 14:52] LABS: Potassium 3.7 mmol/L (3.4-5.0)
[2022-11-23] MEDS: RIVAROXABAN 20 MG TABLET PO (17:37)
[2022-11-23] MEDS: LACTATED RINGERS 1,000 ML 100 ML IV CONT (17:39)
--- NOTE | 2022-11-23 17:48 | ECHO_ITS ---
Patient Info Name: Renae Griffith Age: 71 years : 1950 Gender: Female Ht: 65 in Wt: 400 lbs BSA: 3.01 m2 HR: 69 bpm BP: 116 / 48 mmHg Technical Quality: Poor Exam Date: 11/23/2022 10:50 AM Exam Location: [facility] Pul[facility] Patient Status: Inpatient Admit Date: 11/22/2022 Staff Ordering Physician: Julianne Dorado PA-C Inspector Rag Sorting: Samantha Dillon RDCS Attending Provider: Mike Salgado MD Referring Physician: Estrada YOUNG; Exam Type: CA echo dop color flow w con Study Info Indications R60.9 - Edema, unspecified I10 - Essential (primary) hypertension Complete two-dimensional, color flow and Doppler transthoracic echocardiogram is performed with contrast to opacify the left ventricle and to improve the deliniation of the left ventricle endocardial borders. Contrast/Agitated Saline Contrast/Ag. Saline: Definity Amount: 5.00 ml Administered By: Samantha Dillon RDCS Existing IV Access: Yes Reason for Poor Study: patient body habitus Summary 1. Technically suboptimal study due to poor sonographic images. 2. Left ventricular chamber dimension is normal. 3. Left ventricular systolic function is normal, estimated at 60-65%. 4. There is mild concentric increased left ventricular wall thickness. 5. The left ventricular diastolic function is grade I diastolic dysfunction. 6. E/e' 8 is minimally elevated. 7. No pulmonary hypertension, estimated pulmonary arterial systolic pressure is 25 mmHg. 8. Dilated inferior vena cava with >50% collapse upon inspiration consistent with elevated right atrial pressure, 10 mmHg. 9. There is trivial pericardial effusion. Left Ventricle E/e' 8 is minimally elevated. Left ventricular chamber dimension is normal. Left ventricular systolic function is normal, estimated at 60-65%. There is mild concentric increased left ventricular wall thickness. The left ventricular diastolic function is grade I diastolic dysfunction. Technically suboptimal study due to poor sonographic images. Right Ventricle Right ventricular chamber dimension is normal. Right ventricular systolic function is normal. Left Atria Left atrial chamber dimension is normal. Right Atria Right atrial chamber dimension is normal. Aortic Valve The aortic valve is not well visualized. There is no aortic valve stenosis. There is no aortic valve regurgitation. Pulmonic Valve There is no pulmonic regurgitation. Mitral Valve There is no mitral valve stenosis. There is no mitral valve regurgitation. Tricuspid Valve There is no tricuspid valve regurgitation. No pulmonary hypertension, estimated pulmonary arterial systolic pressure is 25 mmHg. Pericardium/Pleural There is trivial pericardial effusion. Inferior Vena Cava Dilated inferior vena cava with >50% collapse upon inspiration consistent with elevated right atrial pressure, 10 mmHg. Aorta The aortic root size at the sinus of Valsalva is normal. Left Ventricular Outflow Tract Name Value Normal LVOT 2D LVOT Diameter 2.10 cm LVOT Doppler LVOT Peak Gradient 4 mmHg
[2022-11-23 20:00] VITALS: O2SAT 95
[2022-11-23] MEDS: PARoxetine 20 MG TABLET PO (21:15)
[2022-11-23] MEDS: SIMVASTATIN 20 MG TABLET PO (21:15)
[2022-11-23 22:00] VITALS: BP 116/87; PULSE 108; RESP 18; TEMP 36.1; O2SAT 99
[2022-11-24 06:00] VITALS: BP 122/59; PULSE 93; RESP 20; TEMP 36.2; O2SAT 98
[2022-11-24 06:40] LABS: Hematocrit 34.1 % (37.0-47.0); Hemoglobin 10.3 g/dL (12.0-15.0); Mean Corpuscular HGB Conc 30.2 g/dl (32-36); Mean Corpuscular Hemoglobin 26.4 pg (26-34); Mean Corpuscular Volume 87.4 fl (80-100); Mean Platelet Volume 9.8 fl (7.4-10.4); Platelet Count Result 242 k/mm3 (150-375); White Blood Count 7.2 K/mm3 (4.5-10.0)
[2022-11-24 06:47] LABS: Alanine Aminotransferase 13 U/L (6-35); Albumin Level 2.7 g/dL (3.5-5.1); Alkaline Phosphatase 56 U/L (38-126); Anion Gap 5 mmol/L (8-16); Aspartate Amino Transferase 17 U/L (14-36); Bilirubin,Total 0.4 mg/dL (0.2-1.3); Blood Urea Nitrogen 39 mg/dL (7-17); Calcium 8.4 mg/dL (8.4-10.2); Carbon Dioxide 27 mmol/L (22-30); Chloride 108 mmol/L (98-107); Estimated CRCL calculation 31 ml/min; Estimated Glomerular Filt Rate 18; Glucose 112 mg/dL (65-110); Potassium 3.2 mmol/L (3.4-5.0); Sodium 140 mmol/L (137-145)
[2022-11-24] MEDS: LACTATED RINGERS 1,000 ML 100 ML IV CONT ×3 (06:55→20:44)
[2022-11-24] MEDS: LEVOTHYROXINE SODIUM 100 MCG TABLET PO (06:55)
[2022-11-24] MEDS: LEVOTHYROXINE SODIUM 75 MCG TABLET PO (06:55)
[2022-11-24] MEDS: POTASSIUM CHLORIDE 20 MEQ PACKET (FOR LIQUID) PO (08:28)
[2022-11-24] MEDS: PANTOPRAZOLE 40 MG TABLET PO (08:28)
--- NOTE | 2022-11-24 09:52 | P.PNIM_ITS ---
Progress Note: A&P Assessment and Plan (1) Hallucinations: Code(s): R44.3 - Hallucinations, unspecified Status: Acute Assessment and Plan: The patient presented to the emergency department via EMS from home for evaluation of hallucinations and pressure sores. Neither of these concerns are acute; Hallucinations have been an intermittent issue since September. * Etiology of the hallucinations is not entirely clear. * She has not been started on any new medication recently and she denies alcohol and substance use. States that her antidepressant increased around the time that the hallucinations started. * Patient stated that hallucinations also started around the anniversary of her 's . * Patient reports not knowing any of the people she was loosening eating and they did not talk to her. She did have 1 episode of auditory hallucination of someone being on her door and all of a sudden a unknown man appeared into her bedroom. * She gives no history to suggest an acute underlying infection. * TSH within normal limits. Check B12, ammonia, and ABG within normal limits * She denies concerns for sleep apnea at though in the room acute complaints due to her hallucinations and body habitus are concerning thus will check an apnea link. * Psychiatric etiology seems less likely. * Blood cultures pending * Fall precautions initiated. * CT head ordered 11/24/22 * CT head revealed no acute intracranial process. * Blood cultures no growth to date * urine culture pending * PT OT following patient (2) Pressure sore: Code(s): L89.90 - Pressure ulcer of unspecified site, unspecified stage Status: Acute Assessment and Plan: The patient presented to the emergency department via EMS from home for evaluation of hallucinations and pressure sores. Neither of these concerns are acute; the pressure sores developed within the last month and are improving. * Wound care consulted * Sores do not appear to be infected * Blood cultures pending (3) Acute kidney injury: Code(s): N17.9 - Acute kidney failure, unspecified Status: Acute Assessment and Plan: She does have an acute kidney injury which may be causing some of the confusion/hallucinations. * Regarding the acute kidney injury, her BUN and creatinine were normal in September 2020. * Leo catheter has been inserted for strict I/O. She was not retaining urine and 300 cc were yielded upon insertion. * Again, she has not been started on any new medications recently. * She may be a bit dehydrated though she says she has been eating and drinking as usual. * Renal ultrasound ordered. * Quinapril and HCTZ have been placed on hold. Continue PPI for now. * Check CK given lack of mobility and concomitant statin use. * UA abnormal * Urine culture pending (4) Abnormal urinalysis: Code(s): R82.90 - Unspecified abnormal findings in urine Status: Acute Assessment and Plan: Abnormal urinalysis * Urine culture pending * Going to start on Rocephin due to positive nitrates and leukocytes. 11/23/22 * Tailor antibiotic therapy to the cultures and sensitivities. * 11/24/22 day 2 of antibiotic therapy (5) Hypokalemia: Code(s): E87.6 - Hypokalemia Status: Acute Assessment and Plan: Replenish electrolytes as needed (6) Physical deconditioning: Code(s): R53.81 - Other malaise Status: Acute Assessment and Plan: The pressure sores are due to her p
--- NOTE | 2022-11-24 09:52 | PM.IMPN ---
Progress Note: A&P Assessment and Plan (1) Hallucinations: Code(s): R44.3 - Hallucinations, unspecified Status: Acute Assessment and Plan: The patient presented to the emergency department via EMS from home for evaluation of hallucinations and pressure sores. Neither of these concerns are acute; Hallucinations have been an intermittent issue since September. Etiology of the hallucinations is not entirely clear. She has not been started on any new medication recently and she denies alcohol and substance use. States that her antidepressant increased around the time that the hallucinations started. Patient stated that hallucinations also started around the anniversary of her 's . Patient reports not knowing any of the people she was loosening eating and they did not talk to her. She did have 1 episode of auditory hallucination of someone being on her door and all of a sudden a unknown man appeared into her bedroom. She gives no history to suggest an acute underlying infection. TSH within normal limits. Check B12, ammonia, and ABG within normal limits She denies concerns for sleep apnea at though in the room acute complaints due to her hallucinations and body habitus are concerning thus will check an apnea link. Psychiatric etiology seems less likely. Blood cultures pending Fall precautions initiated. CT head ordered 11/24/22 CT head revealed no acute intracranial process. Blood cultures no growth to date urine culture pending PT OT following patient (2) Pressure sore: Code(s): L89.90 - Pressure ulcer of unspecified site, unspecified stage Status: Acute Assessment and Plan: The patient presented to the emergency department via EMS from home for evaluation of hallucinations and pressure sores. Neither of these concerns are acute; the pressure sores developed within the last month and are improving. Wound care consulted Sores do not appear to be infected Blood cultures pending (3) Acute kidney injury: Code(s): N17.9 - Acute kidney failure, unspecified Status: Acute Assessment and Plan: She does have an acute kidney injury which may be causing some of the confusion/hallucinations. Regarding the acute kidney injury, her BUN and creatinine were normal in September 2020. Leo catheter has been inserted for strict I/O. She was not retaining urine and 300 cc were yielded upon insertion. Again, she has not been started on any new medications recently. She may be a bit dehydrated though she says she has been eating and drinking as usual. Renal ultrasound ordered. Quinapril and HCTZ have been placed on hold. Continue PPI for now. Check CK given lack of mobility and concomitant statin use. UA abnormal Urine culture pending (4) Abnormal urinalysis: Code(s): R82.90 - Unspecified abnormal findings in urine Status: Acute Assessment and Plan: Abnormal urinalysis Urine culture pending Going to start on Rocephin due to positive nitrates and leukocytes. 11/23/22 Tailor antibiotic therapy to the cultures and sensitivities. 11/24/22 day 2 of antibiotic therapy (5) Hypokalemia: Code(s): E87.6 - Hypokalemia Status: Acute Assessment and Plan: Replenish electrolytes as needed (6) Physical deconditioning: Code(s): R53.81 - Other malaise Status: Acute Assessment and Plan: The pressure sores are due to her physical deconditioning and limited mobility. Wound care consulted PT OT ordered (7) Pedal edema: Code(s): R60.0 - Localized edema Status: Acute Assessment and Plan: She has bilateral lower extremity edema which is likely dependent edema though will check an echocardiogram to assess hard however proBNP is less than 500. Echo revealed EF of 60 65%, left ventricular hypertrophy, grade 1 diastolic function, normal pulmonary pressures
[2022-11-24] MEDS: RIVAROXABAN 20 MG TABLET PO (16:56)
[2022-11-24] MEDS: TOLNAFTATE 1% POWDER 45 GM BTL 1 APPLIC TOPICAL ×2 (16:56→20:45)
[2022-11-24 17:59] VITALS: BP 106/85; PULSE 73; RESP 18; TEMP 36.6; O2SAT 93
[2022-11-24] MEDS: PARoxetine 20 MG TABLET PO (20:44)
[2022-11-24] MEDS: SIMVASTATIN 20 MG TABLET PO (20:44)
[2022-11-24 22:14] VITALS: BP 117/82; PULSE 78; RESP 16; TEMP 37.2; O2SAT 100
[2022-11-24 23:50] VITALS: O2SAT 96
[2022-11-25 05:57] VITALS: BP 124/65; PULSE 76; RESP 16; TEMP 36.4; O2SAT 91
[2022-11-25] MEDS: LEVOTHYROXINE SODIUM 100 MCG TABLET PO (06:09)
[2022-11-25] MEDS: LACTATED RINGERS 1,000 ML 100 ML IV CONT ×2 (06:09→21:04)
[2022-11-25] MEDS: LEVOTHYROXINE SODIUM 75 MCG TABLET PO (06:09)
[2022-11-25 06:26] LABS: Basophils Percent Auto 0.4 % (0.2-1.2); Eosinophils Absolute Auto 0.2 K/mm3 (0-0.3); Eosinophils Percent Auto 2.2 % (0-4.4); Hematocrit 33.9 % (37.0-47.0); Hemoglobin 10.3 g/dL (12.0-15.0); Immature Granulocyte Absolute 0.03 K/mm3 (0.00-0.031); Immature Granulocyte Percent A 0.4 % (0-0.5); Lymphocytes Absolute Auto 1.62 K/mm3 (0.9-3.2); Lymphocytes Percent Auto 23.9 % (18.3-44.2); Mean Corpuscular HGB Conc 30.4 g/dl (32-36); Mean Corpuscular Hemoglobin 26.7 pg (26-34); Mean Corpuscular Volume 87.8 fl (80-100); Mean Platelet Volume 10.8 fl (7.4-10.4); Monocytes Absolute Auto 0.6 K/mm3 (0.1-0.6); Monocytes Percent Auto 9.1 % (2.6-8.5); Neutrophils Absolute Auto 4.3 K/mm3 (1.3-6.7); Platelet Count Result 253 k/mm3 (150-375); Red Blood Count 3.86 M/mm3 (4.2-5.4); Red Cell Distribution Width 19.4 % (11.5-14.5); White Blood Count 6.8 K/mm3 (4.5-10.0)
[2022-11-25 08:18] LABS: Alanine Aminotransferase 13 U/L (6-35); Albumin Level 2.8 g/dL (3.5-5.1); Alkaline Phosphatase 56 U/L (38-126); Anion Gap 3 mmol/L (8-16); Aspartate Amino Transferase 20 U/L (14-36); Bilirubin,Total 0.4 mg/dL (0.2-1.3); Blood Urea Nitrogen 34 mg/dL (7-17); Calcium 8.4 mg/dL (8.4-10.2); Carbon Dioxide 27 mmol/L (22-30); Chloride 109 mmol/L (98-107); Estimated CRCL calculation 38 ml/min; Estimated Glomerular Filt Rate 23; Glucose 111 mg/dL (65-110); Potassium 3.1 mmol/L (3.4-5.0); Sodium 139 mmol/L (137-145)
[2022-11-25] MEDS: PANTOPRAZOLE 40 MG TABLET PO (08:34)
[2022-11-25] MEDS: TOLNAFTATE 1% POWDER 45 GM BTL 1 APPLIC TOPICAL ×2 (08:41→21:05)
[2022-11-25] MEDS: POTASSIUM CHLORIDE INJ 40 MEQ in SODIUM CHLORIDE 0.9% IV 500 ML 130 MEQ IVPB ×2 (10:41→16:28)
[2022-11-25 14:00] VITALS: BP 115/55; PULSE 84; RESP 16; TEMP 36.1; O2SAT 92
[2022-11-25 14:52] LABS: Osmolality, Urine 389 mOsm/kg (50-1200)
--- NOTE | 2022-11-25 15:50 | PM.IMPN ---
Progress Note: A&P Assessment and Plan (1) Hallucinations: Code(s): R44.3 - Hallucinations, unspecified Status: Acute Assessment and Plan: Hallucinations have been an intermittent issue since September. No acute findings to suggest an etiology. She is dehydrated but improving which may contribute from uremia but this is less likely. Could consider possibility of lewy body dementia? Further o/p workup can be considered. (2) Pressure sore: Code(s): L89.90 - Pressure ulcer of unspecified site, unspecified stage Status: Acute Assessment and Plan: Pressure sores are improving. Wound care consulted BLood cultures are no growth at this time (3) Acute kidney injury: Code(s): N17.9 - Acute kidney failure, unspecified Status: Acute Assessment and Plan: DEZ with improvement creatinine from 2.6 to 2.1 today. BUN and creatinine were normal in September 2020. Leo catheter has been inserted for strict I/O. Will DC this likely tomorrow. Renal u/s not acutely deranged. Holding timur-i and thiazide. (4) Abnormal urinalysis: Code(s): R82.90 - Unspecified abnormal findings in urine Status: Acute Assessment and Plan: Abnormal urinalysis, Urine cx with E. coli, sensitivities have resulted. Rocephin given this afternoon, day 4. Start keflex tomorrow - will complete total of 5 full days abx. (5) Hypokalemia: Code(s): E87.6 - Hypokalemia Status: Acute Assessment and Plan: Did not sufficiently rise with repletion yesterday - further replete today. Check magnesium level in the am. (6) Physical deconditioning: Code(s): R53.81 - Other malaise Status: Acute Assessment and Plan: Limited physical ability - likely etiology of wounds. Wound care consulted PT OT ordered (7) Pedal edema: Code(s): R60.0 - Localized edema Status: Acute Assessment and Plan: Presume dependent edema - echo with normal ef. Plan Expect 24-48 hours of treatment. Time Spent With Patient Time with patient: 25 - 35 minutes Subjective Date/time seen: 11/25/22 15:50 Interval history: Patient denies any new complaints or concerns this am. Denies any visual hallucinations. Review of Systems Constitutional: Constitutional: Reports no additional constitutional complaints Cardiovascular: Cardiovascular: Reports no additional cardiovascular complaints Respiratory: Respiratory: Reports no additional respiratory complaints Gastrointestinal: Gastrointestinal: Reports no additional gastrointestinal complaints Exam Narrative: GENERAL APPEARANCE: Appears to be in no acute distress. HEAD: normocephalic atraumatic NECK: Neck supple, trachea midline. CARDIAC: Normal S1/S2. Rhythm is regular. No murmurs, rubs, or gallops. No cyanosis or pallor. Extremities are warm and well perfused. LUNGS: Clear to auscultation without rales, rhonchi, wheezing or diminished breath sounds. Respirations even and unlabored. ABDOMEN: BS positive x 4 quadrants. Obese. Soft, nondistended, nontender. No guarding or rebound. MSK: No joint tenderness/swelling, fair strength in all extremities. PERIPHERAL VASCULAR: Peripheral pulses palpable. Normal perfusion, cap refill <2 seconds. NEURO: Follows commands. No focal deficits. SKIN: [place] without lesions or eruptions. PSYCH: Stable, no paranoia or delusional thinking. Objective Data Vital Signs Vital Signs: Vital Signs - 24 hr 11/24/22 17:59 11/24/22 20:00 11/24/22 22:14 Temperature 97.9 F 99.0 F Pulse Rate 73 78 Respiratory Rate 18 16 Blood Pressure 106/85 117/82 Pulse Oximetry 93 100 Oxygen Delivery Room Air 11/24/22 23:50 11/25/22 05:57 11/25/22 08:53 Temperature 97.6 F Pulse Rate 76 Respiratory Rate 16 Blood Pressure 124/65 Pulse Oximetry 96 91 Oxygen Delivery Room Air Room Air 11/25/22 08:30 Temperature Pulse Rate Respiratory Ra
[2022-11-25] MEDS: RIVAROXABAN 20 MG TABLET PO (16:29)
[2022-11-25] MEDS: PARoxetine 20 MG TABLET PO (21:05)
[2022-11-25] MEDS: SIMVASTATIN 20 MG TABLET PO (21:05)
[2022-11-25 22:13] VITALS: BP 121/59; PULSE 85; RESP 16; TEMP 36.4; O2SAT 100
[2022-11-26 06:12] LABS: Hematocrit 34.7 % (37.0-47.0); Hemoglobin 10.2 g/dL (12.0-15.0); Mean Corpuscular HGB Conc 29.4 g/dl (32-36); Mean Corpuscular Hemoglobin 25.8 pg (26-34); Mean Corpuscular Volume 87.8 fl (80-100); Mean Platelet Volume 9.8 fl (7.4-10.4); Platelet Count Result 240 k/mm3 (150-375); Red Blood Count 3.95 M/mm3 (4.2-5.4); Red Cell Distribution Width 19.3 % (11.5-14.5); White Blood Count 6.1 K/mm3 (4.5-10.0)
[2022-11-26 06:15] VITALS: BP 126/75; PULSE 83; RESP 16; TEMP 36.5; O2SAT 93
[2022-11-26] MEDS: LACTATED RINGERS 1,000 ML 100 ML IV CONT ×2 (06:20→17:22)
[2022-11-26] MEDS: LEVOTHYROXINE SODIUM 100 MCG TABLET PO (06:21)
[2022-11-26] MEDS: LEVOTHYROXINE SODIUM 75 MCG TABLET PO (06:21)
[2022-11-26 06:33] LABS: Alanine Aminotransferase 13 U/L (6-35); Albumin Level 2.9 g/dL (3.5-5.1); Alkaline Phosphatase 58 U/L (38-126); Anion Gap 5 mmol/L (8-16); Aspartate Amino Transferase 18 U/L (14-36); Bilirubin,Total 0.4 mg/dL (0.2-1.3); Blood Urea Nitrogen 28 mg/dL (7-17); Calcium 8.4 mg/dL (8.4-10.2); Carbon Dioxide 25 mmol/L (22-30); Chloride 111 mmol/L (98-107); Estimated CRCL calculation 36 ml/min; Estimated Glomerular Filt Rate 22; Glucose 115 mg/dL (65-110); Magnesium 2.1 mg/dL (1.6-2.3); Potassium 3.4 mmol/L (3.4-5.0); Sodium 141 mmol/L (137-145)
[2022-11-26] MEDS: TOLNAFTATE 1% POWDER 45 GM BTL 1 APPLIC TOPICAL ×2 (08:25→21:36)
[2022-11-26] MEDS: PANTOPRAZOLE 40 MG TABLET PO (08:31)
[2022-11-26] MEDS: POTASSIUM CHLORIDE 20 MEQ TABLET 40 MEQ PO (10:47)
--- NOTE | 2022-11-26 12:30 | PM.IMPN ---
Progress Note: A&P Assessment and Plan (1) UTI (urinary tract infection): Code(s): N39.0 - Urinary tract infection, site not specified Status: Acute Assessment and Plan: E. coli on cx - completing abx today. (2) Acute kidney injury: Code(s): N17.9 - Acute kidney failure, unspecified Status: Acute Assessment and Plan: DEZ with stable creatinine at approx 2.1. Less likely just dehydration, FENa is 2.1% suggestive of intrinsic disease. No new medications, infection is present but not overwhelming illness/sepsis. ATN, AIN, intraglomelular inflammation? BUN and creatinine were normal in September 2020. Continue faustin catheter today, consider discontinuation tomorrow. Renal u/s not acutely deranged. Holding timur-i and thiazide. Have consulted nephrology. (3) Hallucinations: Code(s): R44.3 - Hallucinations, unspecified Status: Acute Assessment and Plan: Hallucinations have been an intermittent issue since September. No acute findings to suggest an etiology. She is dehydrated but improving which may contribute from uremia but this is less likely. Could consider possibility of lewy body dementia? Further o/p workup can be considered. (4) Hypokalemia: Code(s): E87.6 - Hypokalemia Status: Acute Assessment and Plan: Magnesium level normal, K3.4. Additional supplementation today. (5) Pressure sore: Code(s): L89.90 - Pressure ulcer of unspecified site, unspecified stage Status: Acute Assessment and Plan: Pressure sores are improving. Wound care consulted Blood cultures are no growth at this time (6) Physical deconditioning: Code(s): R53.81 - Other malaise Status: Acute Assessment and Plan: Limited physical ability - likely etiology of wounds. Wound care consulted PT OT ordered Likely placement upon discharge for further therapy. (7) Pedal edema: Code(s): R60.0 - Localized edema Status: Acute Assessment and Plan: Stable on examination, chronic, echo with normal ef. Plan Expect 24-48 hours of treatment. Likely placement on discharge. Time Spent With Patient Time with patient: 25 - 35 minutes Subjective Date/time seen: 11/26/22 12:30 Interval history: Renae states she feels fair this morning, she does continue to endorse weakness beyond her baseline and concern for return to home. Review of Systems Constitutional: Constitutional: Reports no additional constitutional complaints Cardiovascular: Cardiovascular: Reports no additional cardiovascular complaints Respiratory: Respiratory: Reports no additional respiratory complaints Gastrointestinal: Gastrointestinal: Reports no additional gastrointestinal complaints Exam Narrative: GENERAL APPEARANCE: Appears to be in no acute distress. HEAD: normocephalic atraumatic NECK: Neck supple, trachea midline. CARDIAC: Normal S1/S2. Rhythm is regular. No murmurs, rubs, or gallops. No cyanosis or pallor. Extremities are warm and well perfused. LUNGS: Clear to auscultation without rales, rhonchi, wheezing or diminished breath sounds. Respirations even and unlabored. ABDOMEN: BS positive x 4 quadrants. Obese. Soft, nondistended, nontender. No guarding or rebound. MSK: No joint tenderness/swelling, fair strength in all extremities. PERIPHERAL VASCULAR: Peripheral pulses palpable. Normal perfusion, cap refill <2 seconds. + 3 pitting blle edema. NEURO: Follows commands. No focal deficits. SKIN: [place] without lesions or eruptions. PSYCH: Stable, no paranoia or delusional thinking. Objective Data Vital Signs Vital Signs: Vital Signs - 24 hr 11/25/22 14:00 11/25/22 19:40 11/25/22 22:13 Temperature 97.0 F L 97.5 F L Pulse Rate 84 85 Respiratory Rate 16 16 Blood Pressure 115/55 L 121/59 L Pulse Oximetry 92 100 Oxygen Delivery Room Air 11/26/22 06:15 11/26/22 08:22 Temperature 97.7 F Pulse Rate
[2022-11-26] MEDS: CEPHALEXIN 500 MG CAPSULE PO ×2 (13:23→17:23)
[2022-11-26 14:00] VITALS: BP 131/60; PULSE 80; RESP 20; TEMP 35.9; O2SAT 98
--- NOTE | 2022-11-26 14:05 | PM.CNNEP ---
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 element of dementia (?) work-up/testing negative so far (4) Physical deconditioning: Code(s): R53.81 - Other malaise Status: Acute Assessment and Plan: PT/OT as tolerated Will continue to follow. History of Present Illness Reason for Consult Consult date: 11/26/22 Reason for consult: acute renal failure Chief Complaint Chief complaint: radha History of Present Illness Narrative: The patient is a 71-year-old female with a past medical history is outlined below who presented to [facility] Emergency room via EMS for further evaluation of hallucinations and bedsores. The patient reports that she has noticed herself having hallucinations of her previously in people that are not actually at her home. This been further complicated by the fact that she has some posterior thigh sores although these apparently have been improving with local wound care. As her normal HD that usually comes 15 hr a week to help her with her activities of daily living has fallen ill, she became concerned that perhaps maybe there are other issues/problems going on that may be leading to these new issues and hence presented to the emergency room for further assessment. Workup and evaluation emergency room demonstrated the patient to be hemodynamically stable although there was some concern that she may be relatively hypotensive but her blood pressures seem to be more stable with the appropriate sized cuff being used. Routine blood test were significant for mild hypokalemia, an elevated BUN and creatinine for above her baseline, and a normal white blood cell count. Urinalysis was done which was highly suggestive of urinary tract infection. Given her constellation of symptoms that led to her presentation to the ER as well as these laboratory findings, appropriate cultures were obtained and she was started on IV antibiotic therapy for her presumed urinary tract infection. She was subsequent admitted to the hospital for further evaluation therapy. Since her admission, she has been receiving appropriate antibiotics for her urinary tract infection but her hallucinations continue to come and go. She has already had a fairly extensive workup with regard to these hallucinations and is felt that further outpatient evaluation may be needed to further delineate the cause of these issues. Renal consultation was requested due to her acute kidney injury/acute renal failure. Her admission creatinine was 2.9 mg/dL and her creatinine and baseline was normal approximately two months ago. The initial assumption was that volume depletion and the urinary tract infection in of itself or responsible for her acute kidney injury/ acute renal failure but her creatinine only improved to 2.1 mg/dL yesterday and is back up to 2.2 mg/dL by a.m. labs. She has no critical electrolyte abnormalities and her volume status appears to be relatively stable as
[2022-11-26] MEDS: RIVAROXABAN 20 MG TABLET PO (17:23)
[2022-11-26] MEDS: PARoxetine 20 MG TABLET PO (21:35)
[2022-11-26] MEDS: SIMVASTATIN 20 MG TABLET PO (21:35)
[2022-11-26 22:00] VITALS: BP 122/68; PULSE 71; RESP 19; TEMP 35.7; O2SAT 95
[2022-11-27] MEDS: CEPHALEXIN 500 MG CAPSULE PO ×2 (00:59→06:09)
[2022-11-27] MEDS: LACTATED RINGERS 1,000 ML 100 ML IV CONT ×2 (03:23→16:04)
[2022-11-27 06:00] VITALS: BP 109/90; PULSE 85; RESP 18; TEMP 35.9; O2SAT 91
[2022-11-27] MEDS: LEVOTHYROXINE SODIUM 75 MCG TABLET PO (06:08)
[2022-11-27] MEDS: LEVOTHYROXINE SODIUM 100 MCG TABLET PO (06:08)
[2022-11-27 06:50] LABS: Hematocrit 35.6 % (37.0-47.0); Hemoglobin 10.5 g/dL (12.0-15.0); Mean Corpuscular HGB Conc 29.5 g/dl (32-36); Mean Corpuscular Hemoglobin 26.2 pg (26-34); Mean Corpuscular Volume 88.8 fl (80-100); Mean Platelet Volume 10.5 fl (7.4-10.4); Platelet Count Result 212 k/mm3 (150-375); Red Blood Count 4.01 M/mm3 (4.2-5.4); Red Cell Distribution Width 19.5 % (11.5-14.5); White Blood Count 5.6 K/mm3 (4.5-10.0)
[2022-11-27 07:03] LABS: Alanine Aminotransferase 13 U/L (6-35); Alkaline Phosphatase 52 U/L (38-126); Anion Gap 2 mmol/L (8-16); Aspartate Amino Transferase 20 U/L (14-36); Bilirubin,Total 0.4 mg/dL (0.2-1.3); Blood Urea Nitrogen 25 mg/dL (7-17); Calcium 8.4 mg/dL (8.4-10.2); Carbon Dioxide 27 mmol/L (22-30); Chloride 108 mmol/L (98-107); Creatine Kinase 32 U/L (30-135); Estimated CRCL calculation 42 ml/min; Estimated Glomerular Filt Rate 26; Glucose 106 mg/dL (65-110); Potassium 3.7 mmol/L (3.4-5.0); Sodium 137 mmol/L (137-145)
[2022-11-27 07:06] LABS: Complement C3 123 mg/dL (88-165)
[2022-11-27] MEDS: PANTOPRAZOLE 40 MG TABLET PO (08:24)
[2022-11-27] MEDS: TOLNAFTATE 1% POWDER 45 GM BTL 1 APPLIC TOPICAL ×2 (08:25→20:01)
--- NOTE | 2022-11-27 10:30 | PM.IMPN ---
Progress Note: A&P Assessment and Plan (1) UTI (urinary tract infection): Code(s): N39.0 - Urinary tract infection, site not specified Status: Acute Assessment and Plan: E. coli on cx from 11/22/22 Received and completed full course of Keflex Trend urine output resolved (2) Acute kidney injury: Code(s): N17.9 - Acute kidney failure, unspecified Status: Acute Assessment and Plan: DEZ with stable creatinine at approx 2.1. Less likely just dehydration, FENa is 2.1% suggestive of intrinsic disease. No new medications, infection is present but not overwhelming illness/sepsis. ATN, AIN, intraglomelular inflammation? BUN and creatinine today are 25/1.90 Currently 25/1.90 Continue faustin catheter will need voiding trial soon Renal u/s not acutely deranged. Holding timur-i and thiazide. Have consulted nephrology. (3) Hallucinations: Code(s): R44.3 - Hallucinations, unspecified Status: Acute Assessment and Plan: Hallucinations have been an intermittent issue since September. No acute findings to suggest an etiology. She is dehydrated but improving which may contribute from uremia but this is less likely. could be onset of dementia Further o/p workup can be considered. (4) Hypokalemia: Code(s): E87.6 - Hypokalemia Status: Acute Assessment and Plan: Magnesium level 2.1, K 3.7. Continue to trend Supplement as indicated (5) Pressure sore: Code(s): L89.90 - Pressure ulcer of unspecified site, unspecified stage Status: Acute Assessment and Plan: Pressure sores are improving. Wound care consulted Blood cultures are no growth at this time Continue antifungal cream seems to be related to urinary incontinence (6) Physical deconditioning: Code(s): R53.81 - Other malaise Status: Acute Assessment and Plan: Limited physical ability - likely etiology of wounds. Wound care consulted PT OT ordered Likely placement upon discharge for further therapy. (7) Pedal edema: Code(s): R60.0 - Localized edema Status: Acute Assessment and Plan: Stable on examination, chronic, echo with normal ef. most likely exacerbated by acute renal failure Plan Expect 24-48 hours of treatment. Likely placement on discharge. Time Spent With Patient Time: 52 minutes Time with patient: Greater than 35 minutes Subjective Date/time seen: 11/27/22 1030 Interval history: patient was sitting on the side the bed. Patient stated that she felt okay today. She denies any chest pain, shortness a breath, nausea, vomiting, diarrhea or constipation. She did state that she was having some mild pain and that the wounds on her hips are kind of gross. talked her about her renal function today. Creatinine down to 1.9. Review of Systems Review of Systems: All systems reviewed & are unremarkable except as noted in HPI and below Exam Narrative: GENERAL APPEARANCE: Appears to be in no acute distress. well appearing obese 71 year old female HEAD: normocephalic atraumatic NECK: Neck supple, trachea midline. CARDIAC: Normal S1/S2. Rhythm is regular. No murmurs, rubs, or gallops. No cyanosis or pallor. Extremities are warm and well perfused. LUNGS: Clear to auscultation without rales, rhonchi, wheezing or diminished breath sounds. Respirations even and unlabored. ABDOMEN: BS positive x 4 quadrants. Obese. Soft, nondistended, nontender. No guarding or rebound. MSK: No joint tenderness/swelling, fair strength in all extremities. PERIPHERAL VASCULAR: Peripheral pulses palpable. Normal perfusion, cap refill <2 seconds. + 3 pitting BLE edema. NEURO: Follows commands. No focal deficits. SKIN: [place] without lesions or eruptions., notable wound bilateral posterior thighs PSYCH: Stable, no paranoia or delusional thinking. insight and judgement intact Objectiv
--- NOTE | 2022-11-27 10:30 | P.PNIM_ITS ---
Progress Note: A&P Assessment and Plan (1) UTI (urinary tract infection): Code(s): N39.0 - Urinary tract infection, site not specified Status: Acute Assessment and Plan: * E. coli on cx from 11/22/22 * Received and completed full course of Keflex * Trend urine output * resolved (2) Acute kidney injury: Code(s): N17.9 - Acute kidney failure, unspecified Status: Acute Assessment and Plan: DEZ with stable creatinine at approx 2.1. Less likely just dehydration, FENa is 2.1% suggestive of intrinsic disease. No new medications, infection is present but not overwhelming illness/sepsis. ATN, AIN, intraglomelular inflammation? * BUN and creatinine today are 25/1.90 * Currently 25/1.90 * Continue faustin catheter * will need voiding trial soon * Renal u/s not acutely deranged. * Holding timur-i and thiazide. * Have consulted nephrology. (3) Hallucinations: Code(s): R44.3 - Hallucinations, unspecified Status: Acute Assessment and Plan: Hallucinations have been an intermittent issue since September. * No acute findings to suggest an etiology. She is dehydrated but improving which may contribute from uremia but this is less likely. * could be onset of dementia * Further o/p workup can be considered. (4) Hypokalemia: Code(s): E87.6 - Hypokalemia Status: Acute Assessment and Plan: * Magnesium level 2.1, * K 3.7. * Continue to trend * Supplement as indicated (5) Pressure sore: Code(s): L89.90 - Pressure ulcer of unspecified site, unspecified stage Status: Acute Assessment and Plan: Pressure sores are improving. * Wound care consulted * Blood cultures are no growth at this time * Continue antifungal cream * seems to be related to urinary incontinence (6) Physical deconditioning: Code(s): R53.81 - Other malaise Status: Acute Assessment and Plan: Limited physical ability - likely etiology of wounds. * Wound care consulted * PT OT ordered * Likely placement upon discharge for further therapy. (7) Pedal edema: Code(s): R60.0 - Localized edema Status: Acute Assessment and Plan: Stable on examination, chronic, echo with normal ef. * most likely exacerbated by acute renal failure Plan Expect 24-48 hours of treatment. Likely placement on discharge. Time Spent With Patient Time: 52 minutes Time with patient: Greater than 35 minutes Subjective Date/time seen: 11/27/22 1030 Interval history: patient was sitting on the side the bed. Patient stated that she felt okay today. She denies any chest pain, shortness a breath, nausea, vomiting, diarrhea or constipation. She did state that she was having some mild pain and that the wounds on her hips are kind of gross. talked her about her renal function today. Creatinine down to 1.9. Review of Systems Review of Systems: All systems reviewed & are unremarkable except as noted in HPI and below Exam Narrative: GENERAL APPEARANCE: Appears to be in no acute distress. well appearing obese 71 year old female HEAD: normocephalic atraumatic NECK: Neck supple, trachea midline. CARDIAC: Normal S1/S2. Rhythm is regular. No murmurs, rubs, or gallops. No cyanosis or pallor. Extremities are warm and well perfused. LUNGS: Clear to auscultation
--- NOTE | 2022-11-27 11:25 | PM.PNNEP ---
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 element of dementia (?) work-up/testing negative so far (4) Physical deconditioning: Code(s): R53.81 - Other malaise Status: Acute Assessment and Plan: PT/OT as tolerated Will continue to follow. Subjective Date/time seen: 11/27/22 11:25 Appears to be doing reasonably well at the time of my visit, still reports ongoing weakness/fatigue since admission but no worse; continues to make good urine output and renal function seems to be slowly improving at this time. Exam Narrative: General: elderly female in NAD Heart: normal S1 and S2; no rub Lungs: clear to auscultation Abdomen: soft, nontender, nondistended, positive bowel sounds Extremities: no cyanosis or clubbing; 1+ edema Skin: warm and dry Objective Data Vital Signs Vital Signs: Vital Signs Temp Pulse Resp BP Pulse Ox O2 Del Method 11/27/22 08:00 Room Air 11/27/22 06:00 96.7 F L 85 18 109/90 91 11/26/22 22:00 96.3 F L 71 19 122/68 95 11/26/22 14:00 96.6 F L 80 20 131/60 98 Intake/Output Intake/Output: Intake & Output 11/24/22 11/25/22 11/26/22 11/27/22 23:59 23:59 23:59 23:59 Intake Total 3650 3310 3500 1120 Output Total 1800 1500 4000 1350 Balance 1850 1810 -500 -230 Meds/Results Medications: Active Medications Generic Name Dose Route Start Last Admin Trade Name Freq PRN Reason Stop Dose Admin Albuterol 2 puff 11/22/22 22:22 Albuterol Sulfate (*Sp) Aerosol 1 Puff INHALATION Q4H PRN shortness of breath or wheezing Docusate Sodium 100 mg 11/25/22 12:05 Docusate Sodium 100 Mg Capsule PO Q12H PRN Constipation Lactated Ringer's 1,000 mls @ 100 mls/hr 11/25/22 18:00 11/27/22 10:10 Lr - Lactated Ringers Iv IV CONT Not Given .Q10H CLARY Levothyroxine Sodium 75 mcg 11/23/22 06:30 11/27/22 06:08 Levothyroxine Sodium 75 Mcg Tablet PO 75 mcg DAILY@0630 CLARY Administration Levothyroxine Sodium 100 mcg 11/23/22 06:30 11/27/22 06:08 Levothyroxine Sodium 100 Mcg Tablet PO 100 mcg DAILY@0630 CLARY Administration Miconazole Nitrate 1 applic 11/23/22 09:00 11/27/22 08:24 Miconazole 2% Antifungal Ointment 56 Gm TOPICAL 1 applic Q12HR CLARY Administration Pantoprazole Sodium 40 mg 11/23/22 09:00 11/27/22 08:24 Pantoprazole 40 Mg Tablet PO 40 mg QAM CLARY Administration Paroxetine HCl 20 mg 11/22/22 22:30 11/26/22 21:35 Paroxetine 20 Mg Tablet PO 20 mg HS CLARY Administration Polyethylene Glycol 17 gm 11/26/22 12:38 Polyethylene Glycol 3350 17 Gm Powd.Pack PO QAM PRN Constipation Rivaroxaban 20 mg 11/23/22 17:00 11/26/22 17:23 Rivaroxaban 20 Mg Tablet PO 20 mg DAILY@1700 CLARY Administration Simvastatin 20 mg 11/22/22 22:30 11/26/22 21:35 Simvastatin 20 Mg Tablet PO 20 mg HS CLARY Administration Tolnaftate 1 applic 11/24/22 14:45
--- NOTE | 2022-11-27 11:25 | P.PNNP_ITS ---
Progress Note: A&P Assessment and Plan (1) Acute kidney injury: Code(s): N17.9 - Acute kidney failure, unspecified Status: Acute Assessment and Plan: * normal creatinine in September 2022 * admission creatinine 2.9mg/dl - down to 2.1mg/dl day before yesterday; up to 2.2mg/dl yesterday * assumption was this was seconday to #2 and prerenal factors * evaluation to date: * urine electrolytes non-prerenal * renal ultrasound unremarkable * CPK normal * urine eosinophils pending * perhaps mild ATN that is protracted * relative hypotension on admission noted * may have been precipitated by quinapril/HCTZ 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 * element of dementia (?) * work-up/testing negative so far (4) Physical deconditioning: Code(s): R53.81 - Other malaise Status: Acute Assessment and Plan: * PT/OT as tolerated Will continue to follow. Subjective Date/time seen: 11/27/22 11:25 Appears to be doing reasonably well at the time of my visit, still reports ongoing weakness/fatigue since admission but no worse; continues to make good urine output and renal function seems to be slowly improving at this time. Exam Narrative: General: elderly female in NAD Heart: normal S1 and S2; no rub Lungs: clear to auscultation Abdomen: soft, nontender, nondistended, positive bowel sounds Extremities: no cyanosis or clubbing; 1+ edema Skin: warm and dry Objective Data Vital Signs Vital Signs: Vital Signs Temp Pulse Resp BP Pulse Ox O2 Del Method 11/27/22 08:00 Room Air 11/27/22 06:00 96.7 F L 85 18 109/90 91 11/26/22 22:00 96.3 F L 71 19 122/68 95 11/26/22 14:00 96.6 F L 80 20 131/60 98 Intake/Output Intake/Output: Intake & Output 11/24/22 11/25/22 11/26/22 11/27/22 23:59 23:59 23:59 23:59 Intake Total 3650 3310 3500 1120 Output Total 1800 1500 4000 1350 Balance 1850 1810 -500 -230 Meds/Results Medications: Active Medications Generic Name Dose Route Start Last Admin Trade Name Freq PRN Reason Stop Dose Admin Albuterol 2 puff 11/22/22 22:22 Albuterol Sulfate (*Sp) Aerosol 1 Puff INHALATION Q4H PRN shortness of breath or wheezing Docusate Sodium 100 mg 11/25/22 12:05 Docusate Sodium 100 Mg Capsule PO Q12H PRN Constipation Lactated Ringer's 1,000 mls @ 100 mls/hr 11/25/22 18:00 11/27/22 10:10 Lr - Lactated Ringers Iv IV CONT Not Given .Q10H CLARY Levothyroxine Sodium 75 mcg 11/23/22 06:30 11/27/22 06:08 Levothyroxine Sodium 75 Mcg Tablet PO 75 mcg DAILY@0630 [facility] Administration Levothyroxine Sodium 100 mcg 11/23/22 06:30 11/27/22 06:08 Levothyroxine Sodium 100 Mcg Tablet PO 100 mcg
[2022-11-27 11:47] LABS: Creatinine Urine 53.2 mg/dL; Total Protein Urine Random 30 mg/dL; Ur Ttl Prot Creatinine Ratio 0.56 mg/mg (0-0.20)
[2022-11-27 12:04] LABS: Eosinophil Urine Rare % (None Seen)
[2022-11-27 14:00] VITALS: BP 120/56; PULSE 71; RESP 12; TEMP 37.1; O2SAT 100
[2022-11-27] MEDS: RIVAROXABAN 20 MG TABLET PO (16:04)
[2022-11-27 19:49] VITALS: O2SAT 100
[2022-11-27] MEDS: PARoxetine 20 MG TABLET PO (20:01)
[2022-11-27] MEDS: SIMVASTATIN 20 MG TABLET PO (20:01)
[2022-11-27 22:00] VITALS: BP 114/59; PULSE 89; RESP 18; TEMP 35.9; O2SAT 95
[2022-11-28] MEDS: LACTATED RINGERS 1,000 ML 100 ML IV CONT ×2 (03:58→11:54)
[2022-11-28] MEDS: LEVOTHYROXINE SODIUM 100 MCG TABLET PO (05:36)
[2022-11-28] MEDS: LEVOTHYROXINE SODIUM 75 MCG TABLET PO (05:36)
[2022-11-28 06:00] VITALS: BP 122/55; PULSE 79; RESP 20; TEMP 36.2; O2SAT 93
[2022-11-28 06:59] LABS: Basophils Percent Auto 0.4 % (0.2-1.2); Eosinophils Absolute Auto 0.1 K/mm3 (0-0.3); Eosinophils Percent Auto 2.2 % (0-4.4); Hematocrit 35.3 % (37.0-47.0); Hemoglobin 10.4 g/dL (12.0-15.0); Immature Granulocyte Absolute 0.01 K/mm3 (0.00-0.031); Immature Granulocyte Percent A 0.2 % (0-0.5); Lymphocytes Absolute Auto 1.36 K/mm3 (0.9-3.2); Lymphocytes Percent Auto 25.4 % (18.3-44.2); Mean Corpuscular HGB Conc 29.5 g/dl (32-36); Mean Corpuscular Hemoglobin 26.3 pg (26-34); Mean Corpuscular Volume 89.1 fl (80-100); Mean Platelet Volume 10.2 fl (7.4-10.4); Monocytes Absolute Auto 0.5 K/mm3 (0.1-0.6); Monocytes Percent Auto 9.5 % (2.6-8.5); Neutrophils Absolute Auto 3.3 K/mm3 (1.3-6.7); Neutrophils Percent Auto 62.3 % (45.5-73.1); Platelet Count Result 208 k/mm3 (150-375); Red Blood Count 3.96 M/mm3 (4.2-5.4); Red Cell Distribution Width 19.4 % (11.5-14.5); White Blood Count 5.4 K/mm3 (4.5-10.0)
[2022-11-28 07:12] LABS: Alanine Aminotransferase 13 U/L (6-35); Albumin Level 2.8 g/dL (3.5-5.1); Alkaline Phosphatase 55 U/L (38-126); Anion Gap 2 mmol/L (8-16); Aspartate Amino Transferase 17 U/L (14-36); Bilirubin,Total 0.4 mg/dL (0.2-1.3); Blood Urea Nitrogen 21 mg/dL (7-17); Calcium 8.3 mg/dL (8.4-10.2); Carbon Dioxide 28 mmol/L (22-30); Chloride 110 mmol/L (98-107); Estimated CRCL calculation 45 ml/min; Estimated Glomerular Filt Rate 28; Glucose 98 mg/dL (65-110); Magnesium 1.9 mg/dL (1.6-2.3); Potassium 3.4 mmol/L (3.4-5.0); Sodium 140 mmol/L (137-145)
[2022-11-28] MEDS: POTASSIUM CHLORIDE 20 MEQ TABLET 40 MEQ PO (08:36)
[2022-11-28] MEDS: PANTOPRAZOLE 40 MG TABLET PO (08:36)
[2022-11-28] MEDS: TOLNAFTATE 1% POWDER 45 GM BTL 1 APPLIC TOPICAL ×2 (08:37→20:02)
--- NOTE | 2022-11-28 10:00 | PM.IMPN ---
Progress Note: A&P Assessment and Plan (1) Acute kidney injury: Code(s): N17.9 - Acute kidney failure, unspecified Status: Acute Assessment and Plan: DEZ with stable creatinine at approx 2.1. Less likely just dehydration, FENa is 2.1% suggestive of intrinsic disease. BUN and creatinine today are 21/1.80 Continue faustin catheter will need voiding trial soon Renal u/s not acutely deranged. Holding timur-i and thiazide. Have consulted nephrology. (2) UTI (urinary tract infection): Code(s): N39.0 - Urinary tract infection, site not specified Status: Acute Assessment and Plan: E. coli on cx from 11/22/22 Received and completed full course of Keflex Trend urine output resolved (3) Hallucinations: Code(s): R44.3 - Hallucinations, unspecified Status: Acute Assessment and Plan: Hallucinations have been an intermittent issue since September. No acute findings to suggest an etiology. She is dehydrated but improving which may contribute from uremia but this is less likely. Could also be the result of infection she denies sleeping well, could be a delirium as well could be onset of dementia Further o/p workup can be considered. (4) Hypokalemia: Code(s): E87.6 - Hypokalemia Status: Acute Assessment and Plan: Magnesium level 2.1, K 3.4 today Supplement with 40mg PO once Continue to trend Supplement as indicated (5) Pressure sore: Code(s): L89.90 - Pressure ulcer of unspecified site, unspecified stage Status: Acute Assessment and Plan: Pressure sores are improving. Wound care consulted Blood cultures are no growth at this time Continue antifungal cream seems to be related to urinary incontinence (6) Physical deconditioning: Code(s): R53.81 - Other malaise Status: Acute Assessment and Plan: Limited physical ability - likely etiology of wounds. Wound care consulted PT OT ordered Likely placement upon discharge for further therapy. (7) Pedal edema: Code(s): R60.0 - Localized edema Status: Acute Assessment and Plan: Stable on examination, chronic, echo with normal ef. most likely exacerbated by acute renal failure Nidia hose, she refused to wear. Time Spent With Patient Time: 48 minutes ? 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 History obtained from: Patient ? History from independent sources: ? External chart review: Nephrology note ? New problems addressed: lower leg edema ? Chronic illnesses addressed: Weakness ? Independent interpretation of studies: Labs ? Comorbidities complicating care: obesity ? Diagnostic tests considered but not ordered: venous doppler ? Risk of complication: High: related to obesity ? Time spent on encounter: 48 minutes Time with patient: Greater than 35 minutes Subjective Date/time seen: 11/28/22 1000 Interval history: 11/28/22 1000 Patient seems to be a bit anxious today. She stated that she does not know what is really going on. Explained what we were waiting on. She did state that she understood. Leg are still swollen. Ordered some nidia hose, but she refused them. She denies any chest pain, shortness of breath, nausea, vomiting, diarrhea, or constipation. Cr continues to get better, currently at 1.80. She also stated that she has not been sleeping well, which she stated is unchanged from the last few days. 11/27/22 patient was sitting on the side the bed. Patient stated that she felt okay today. She denies any chest pain, shortness a breath, nausea, vomiting, diarrhea or constipation. She did state that she was having some mild pain and that the wounds on her hips are kind of gross. talked her about her renal function today. Creatinine down to 1.9. Review of Systems Review of Systems: All systems reviewed
--- NOTE | 2022-11-28 10:00 | P.PNIM_ITS ---
Progress Note: A&P Assessment and Plan (1) Acute kidney injury: Code(s): N17.9 - Acute kidney failure, unspecified Status: Acute Assessment and Plan: DEZ with stable creatinine at approx 2.1. * Less likely just dehydration, * FENa is 2.1% suggestive of intrinsic disease. * BUN and creatinine today are 21/1.80 * Continue faustin catheter * will need voiding trial soon * Renal u/s not acutely deranged. * Holding timur-i and thiazide. * Have consulted nephrology. (2) UTI (urinary tract infection): Code(s): N39.0 - Urinary tract infection, site not specified Status: Acute Assessment and Plan: * E. coli on cx from 11/22/22 * Received and completed full course of Keflex * Trend urine output * resolved (3) Hallucinations: Code(s): R44.3 - Hallucinations, unspecified Status: Acute Assessment and Plan: Hallucinations have been an intermittent issue since September. * No acute findings to suggest an etiology. She is dehydrated but improving which may contribute from uremia but this is less likely. * Could also be the result of infection * she denies sleeping well, could be a delirium as well * could be onset of dementia * Further o/p workup can be considered. (4) Hypokalemia: Code(s): E87.6 - Hypokalemia Status: Acute Assessment and Plan: * Magnesium level 2.1, * K 3.4 today * Supplement with 40mg PO once * Continue to trend * Supplement as indicated (5) Pressure sore: Code(s): L89.90 - Pressure ulcer of unspecified site, unspecified stage Status: Acute Assessment and Plan: Pressure sores are improving. * Wound care consulted * Blood cultures are no growth at this time * Continue antifungal cream * seems to be related to urinary incontinence (6) Physical deconditioning: Code(s): R53.81 - Other malaise Status: Acute Assessment and Plan: Limited physical ability - likely etiology of wounds. * Wound care consulted * PT OT ordered * Likely placement upon discharge for further therapy. (7) Pedal edema: Code(s): R60.0 - Localized edema Status: Acute Assessment and Plan: Stable on examination, chronic, echo with normal ef. * most likely exacerbated by acute renal failure * Nidia aparicio, she refused to wear. Time Spent With Patient Time: 48 minutes ? 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 History obtained from: Patient ? History from independent sources: ? External chart review: Nephrology note ? New problems addressed: lower leg edema ? Chronic illnesses addressed: Weakness ? Independent interpretation of studies: Labs ? Comorbidities complicating care: obesity ? Diagnostic tests considered but not ordered: venous doppler ? Risk of complication: High: related to obesity ? Time spent on encounter: 48 minutes Time with patient: Greater than 35 minutes Subjective Date/time seen: 11/28/22 1000 Interval history: 11/28/22 1000 Patient seems to be a bit anxious today. She stated that she does not know what is really going on. Explained what we were waiting on. She did state that she understood. Leg are still swollen. Ordered some nidia hose, but she refused them. She denies any chest pain, shortness of breath, lacho
--- NOTE | 2022-11-28 13:55 | P.PNNP_ITS ---
Progress Note: A&P Assessment and Plan (1) Acute kidney injury: Code(s): N17.9 - Acute kidney failure, unspecified Status: Acute Assessment and Plan: * acute kidney injury * at baseline, she has a normal creatinine.2 * evaluation to date: * urine electrolytes non-prerenal * renal ultrasound unremarkable * CPK normal * urine eosinophils pending * perhaps mild ATN that is protracted. Multiple issues involved. * She had a UTI. * relative hypotension on admission. 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 Complements are okay. Other serologies pending * her creatinine seems to be improving. This is a very slow process. * She is eager to discharge to rehab so she can start getting stronger. I encouraged her could to continue eating and being as mobile as she can with physical therapy and occupational therapy. (2) UTI (urinary tract infection): Code(s): N39.0 - Urinary tract infection, site not specified Status: Acute Assessment and Plan: * urine culture with E.coli * Off antibiotics (3) Hallucinations: Code(s): R44.3 - Hallucinations, unspecified Status: Acute Assessment and Plan: * improved (4) Physical deconditioning: Code(s): R53.81 - Other malaise Status: Acute Assessment and Plan: * PT/OT as tolerated Will continue to follow. Subjective Date/time seen: 11/28/22 13:55 Interval history: Renae feels okay. No chest pain or shortness of breath Exam Narrative: General: elderly female in NAD Heart: normal S1 and S2; no rub or gallop Lungs: clear to auscultation Abdomen: soft, nontender, nondistended, positive bowel sounds Extremities: 1+ edema Skin: no rash Objective Data Vital Signs Vital Signs: Vital Signs - 24 hr 11/27/22 14:00 11/27/22 19:49 11/27/22 22:00 Temperature 98.7 F 96.7 F L Pulse Rate 71 89 Respiratory Rate 12 18 Blood Pressure 120/56 L 114/59 L Pulse Oximetry 100 100 95 Oxygen Delivery Room Air 11/28/22 06:00 11/28/22 08:00 Temperature 97.2 F L Pulse Rate 79 Respiratory Rate 20 Blood Pressure 122/55 L Pulse Oximetry 93 Oxygen Delivery Room Air Intake/Output Intake/Output: Intake & Output 11/25/22 11/26/22 11/27/22 11/28/22 23:59 23:59 23:59 23:59 Intake Total 3310 3500 2860 2240 Output Total 1500 4000 2350 1400 Balance 1810 -500 510 840 Meds/Results Medications: Active Medications Generic Name Dose Route Start Last Admin Trade Name Freq PRN Reason Stop Dose Admin Albuterol 2 puff 11/22/22 22:22 Albuterol Sulfate (*Sp) Aerosol 1 Puff INHALATION Q4H PRN shortness of breath or wheezing Docusate Sodium 100 mg 11/25/22 12:05 Docusate Sodium 100 Mg Capsule PO Q12H PRN Constipation Lactated Ringer's 1,000 mls @ 100 mls/hr 11/25/22 18:00 11/28/22 11:54 Lr - Lactated Ringers Iv IV CONT 100 mls/hr .Q10H [facility]ARY Administration Levothyroxine Sodium 75 mcg 11/23/22 06:30 11/28/22 05:36
--- NOTE | 2022-11-28 13:55 | PM.PNNEP ---
Progress Note: A&P Assessment and Plan (1) Acute kidney injury: Code(s): N17.9 - Acute kidney failure, unspecified Status: Acute Assessment and Plan: acute kidney injury at baseline, she has a normal creatinine.2 evaluation to date: urine electrolytes non-prerenal renal ultrasound unremarkable CPK normal urine eosinophils pending perhaps mild ATN that is protracted. Multiple issues involved. She had a UTI. relative hypotension on admission. 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 Complements are okay. Other serologies pending her creatinine seems to be improving. This is a very slow process. She is eager to discharge to rehab so she can start getting stronger. I encouraged her could to continue eating and being as mobile as she can with physical therapy and occupational therapy. (2) UTI (urinary tract infection): Code(s): N39.0 - Urinary tract infection, site not specified Status: Acute Assessment and Plan: urine culture with E.coli Off antibiotics (3) Hallucinations: Code(s): R44.3 - Hallucinations, unspecified Status: Acute Assessment and Plan: improved (4) Physical deconditioning: Code(s): R53.81 - Other malaise Status: Acute Assessment and Plan: PT/OT as tolerated Will continue to follow. Subjective Date/time seen: 11/28/22 13:55 Interval history: Renae feels okay. No chest pain or shortness of breath Exam Narrative: General: elderly female in NAD Heart: normal S1 and S2; no rub or gallop Lungs: clear to auscultation Abdomen: soft, nontender, nondistended, positive bowel sounds Extremities: 1+ edema Skin: no rash Objective Data Vital Signs Vital Signs: Vital Signs - 24 hr 11/27/22 14:00 11/27/22 19:49 11/27/22 22:00 Temperature 98.7 F 96.7 F L Pulse Rate 71 89 Respiratory Rate 12 18 Blood Pressure 120/56 L 114/59 L Pulse Oximetry 100 100 95 Oxygen Delivery Room Air 11/28/22 06:00 11/28/22 08:00 Temperature 97.2 F L Pulse Rate 79 Respiratory Rate 20 Blood Pressure 122/55 L Pulse Oximetry 93 Oxygen Delivery Room Air Intake/Output Intake/Output: Intake & Output 01/25/11/26/22 11/27/22 11/28/22 23:59 23:59 23:59 23:59 Intake Total 3310 3500 2860 2240 Output Total 1500 4000 2350 1400 Balance 1810 -500 510 840 Meds/Results Medications: Active Medications Generic Name Dose Route Start Last Admin Trade Name Freq PRN Reason Stop Dose Admin Albuterol 2 puff 11/22/22 22:22 Albuterol Sulfate (*Sp) Aerosol 1 Puff INHALATION Q4H PRN shortness of breath or wheezing Docusate Sodium 100 mg 11/25/22 12:05 Docusate Sodium 100 Mg Capsule PO Q12H PRN Constipation Lactated Ringer's 1,000 mls @ 100 mls/hr 11/25/22 18:00 11/28/22 11:54 Lr - Lactated Ringers Iv IV CONT 100 mls/hr .Q10H [facility] Administration Levothyroxine Sodium 75 mcg 11/23/22 06:30 11/28/22 05:36 Levothyroxine Sodium 75 Mcg Tablet PO 75 mcg DAILY@0630 [facility] Administration Levothyroxine Sodium 100 mcg 11/23/22 06:30 11/28/22 05:36 Levothyroxine Sodium 100 Mcg Tablet PO 100 mcg DAILY@0630 [facility] Administration Miconazole Nitrate 1 applic 11/23/22 09:00 11/28/22 08:37 Miconazole 2% Antifungal Ointment 56 Gm TOPICAL 1 applic Q12HR [facility]ARY Administration Pantoprazole Sodium 40 mg 11/23/22 09:00 11/28/22 08:36 Pantoprazole 40 Mg Tablet PO 40 mg QAM [facility]ARY Administration Paroxetine HCl 20 mg 11/22/22 22:30 11/27/22 20:01 Paroxetine 20 Mg Tablet PO 20 mg HS [facility]ARY Administration Polyethylene Glycol 17 gm 11/26/22 12:38 Polyethylene Glycol 3350 17 Gm Powd.Pack PO QAM PRN Constipation Rivaroxaban 20 mg 11/23/22 17:00 11/27/22 16:04 Rivaroxaban 20 Mg Tablet PO 20 mg DAILY@1700 [facility] Administration Simvastatin
[2022-11-28 14:00] VITALS: BP 123/60; PULSE 87; RESP 22; TEMP 36.8; O2SAT 96
[2022-11-28] MEDS: RIVAROXABAN 20 MG TABLET PO (16:39)
[2022-11-28 19:34] VITALS: O2SAT 96
[2022-11-28] MEDS: PARoxetine 20 MG TABLET PO (20:01)
[2022-11-28] MEDS: MELATONIN 5 MG TABLET PO (20:01)
[2022-11-28] MEDS: SIMVASTATIN 20 MG TABLET PO (20:02)
[2022-11-28 22:00] VITALS: BP 115/54; PULSE 87; RESP 18; TEMP 36.2; O2SAT 88
[2022-11-29] MEDS: LEVOTHYROXINE SODIUM 75 MCG TABLET PO (05:42)
[2022-11-29] MEDS: LACTATED RINGERS 1,000 ML 100 ML IV CONT ×2 (05:43→18:30)
[2022-11-29] MEDS: LEVOTHYROXINE SODIUM 100 MCG TABLET PO (05:43)
[2022-11-29 06:00] VITALS: BP 103/55; PULSE 70; RESP 20; TEMP 36.1; O2SAT 88
[2022-11-29 06:02] LABS: Basophils Percent Auto 0.6 % (0.2-1.2); Eosinophils Absolute Auto 0.1 K/mm3 (0-0.3); Eosinophils Percent Auto 1.9 % (0-4.4); Hematocrit 34.3 % (37.0-47.0); Hemoglobin 10.1 g/dL (12.0-15.0); Immature Granulocyte Absolute 0.02 K/mm3 (0.00-0.031); Immature Granulocyte Percent A 0.4 % (0-0.5); Lymphocytes Absolute Auto 1.28 K/mm3 (0.9-3.2); Lymphocytes Percent Auto 23.8 % (18.3-44.2); Mean Corpuscular HGB Conc 29.4 g/dl (32-36); Mean Corpuscular Hemoglobin 26.5 pg (26-34); Mean Platelet Volume 10.3 fl (7.4-10.4); Monocytes Absolute Auto 0.6 K/mm3 (0.1-0.6); Monocytes Percent Auto 10.2 % (2.6-8.5); Neutrophils Absolute Auto 3.4 K/mm3 (1.3-6.7); Neutrophils Percent Auto 63.1 % (45.5-73.1); Platelet Count Result 205 k/mm3 (150-375); Red Blood Count 3.81 M/mm3 (4.2-5.4); Red Cell Distribution Width 19.9 % (11.5-14.5); White Blood Count 5.4 K/mm3 (4.5-10.0)
[2022-11-29 06:12] LABS: Alanine Aminotransferase 13 U/L (6-35); Albumin Level 2.6 g/dL (3.5-5.1); Alkaline Phosphatase 53 U/L (38-126); Anion Gap 4 mmol/L (8-16); Aspartate Amino Transferase 17 U/L (14-36); Bilirubin,Total 0.3 mg/dL (0.2-1.3); Blood Urea Nitrogen 21 mg/dL (7-17); Calcium 8.3 mg/dL (8.4-10.2); Carbon Dioxide 27 mmol/L (22-30); Chloride 111 mmol/L (98-107); Estimated CRCL calculation 43 ml/min; Estimated Glomerular Filt Rate 26; Glucose 113 mg/dL (65-110); Magnesium 1.9 mg/dL (1.6-2.3); Phosphorus 3.1 mg/dL (2.5-4.5); Potassium 3.7 mmol/L (3.4-5.0); Sodium 142 mmol/L (137-145)
[2022-11-29 08:22] LABS: NT Pro B Type Natriuretic Pept 498 pg/mL (19.9-100)
--- NOTE | 2022-11-29 08:32 | P.PNNP_ITS ---
Progress Note: A&P Assessment and Plan (1) Acute kidney injury: Code(s): N17.9 - Acute kidney failure, unspecified Status: Acute Assessment and Plan: * acute kidney injury * at baseline, she has a normal creatinine. * evaluation to date: * urine electrolytes non-prerenal * renal ultrasound unremarkable * CPK normal * urine eosinophils rare * perhaps mild ATN that is protracted. Multiple issues involved. * She had a UTI.she finished her antibiotics. * relative hypotension on admission. Her blood pressure still is in the low 100s. She is off all of her antihypertensives. 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 * there are other possible causes, however. Complements are okay. Other serologies pending. Immunofixation are pending. * her creatinine is up and down some. It went from 1.8-1.9. * She is eager to discharge to rehab so she can start getting stronger. I encouraged her could to continue eating and being as mobile as she can with physical therapy and occupational therapy. (2) UTI (urinary tract infection): Code(s): N39.0 - Urinary tract infection, site not specified Status: Acute Assessment and Plan: * urine culture with E.coli * Off antibiotics (3) Hallucinations: Code(s): R44.3 - Hallucinations, unspecified Status: Acute Assessment and Plan: * improved (4) Physical deconditioning: Code(s): R53.81 - Other malaise Status: Acute Assessment and Plan: * PT/OT as tolerated Will continue to follow. Subjective Date/time seen: 11/29/22 08:32 Interval history: Renae feels okay. Leo catheter came out yesterday. She has been making some urine. She had 3 episodes of shortness of breath last night. they lasted about 5minutes each. Her no other symptoms at the time without Wheezing she is eating well Exam Narrative: General: elderly female in NAD Heart: normal S1 and S2; no rub Lungs: clear Abdomen: soft, nontender, nondistended, positive bowel sounds Extremities: 1+ edema Skin: no rash or subcu nodules Objective Data Vital Signs Vital Signs: Vital Signs - 24 hr 11/28/22 14:00 11/28/22 19:34 11/28/22 22:00 Temperature 98.2 F 97.2 F L Pulse Rate 87 87 Respiratory Rate 22 H 18 Blood Pressure 123/60 115/54 L Pulse Oximetry 96 96 88 L Oxygen Delivery Room Air 11/29/22 06:00 Temperature 96.9 F L Pulse Rate 70 Respiratory Rate 20 Blood Pressure 103/55 L Pulse Oximetry 88 L Oxygen Delivery Intake/Output Intake/Output: Intake & Output 11/26/22 11/27/22 11/28/22 11/29/22 23:59 23:59 23:59 23:59 Intake Total 3500 2860 3740 1000 Output Total 4000 2350 2325 Balance -269 815 9420 1000 Meds/Results Medications: Active Medications Generic Name Dose Route Start Last Admin Trade Name Freq PRN Reason Stop Dose Admin Albuterol 2 puff 11/22/22 22:22 Albuterol Sulfate (*Sp) Aerosol 1 Puff INHALATION Q4H PRN shortness of breath or wheezing Docusate Sodium 100 mg 11/25/22 12:05
--- NOTE | 2022-11-29 08:32 | PM.PNNEP ---
Progress Note: A&P Assessment and Plan (1) Acute kidney injury: Code(s): N17.9 - Acute kidney failure, unspecified Status: Acute Assessment and Plan: acute kidney injury at baseline, she has a normal creatinine. evaluation to date: urine electrolytes non-prerenal renal ultrasound unremarkable CPK normal urine eosinophils rare perhaps mild ATN that is protracted. Multiple issues involved. She had a UTI.she finished her antibiotics. relative hypotension on admission. Her blood pressure still is in the low 100s. She is off all of her antihypertensives. 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 there are other possible causes, however. Complements are okay. Other serologies pending. Immunofixation are pending. her creatinine is up and down some. It went from 1.8-1.9. She is eager to discharge to rehab so she can start getting stronger. I encouraged her could to continue eating and being as mobile as she can with physical therapy and occupational therapy. (2) UTI (urinary tract infection): Code(s): N39.0 - Urinary tract infection, site not specified Status: Acute Assessment and Plan: urine culture with E.coli Off antibiotics (3) Hallucinations: Code(s): R44.3 - Hallucinations, unspecified Status: Acute Assessment and Plan: improved (4) Physical deconditioning: Code(s): R53.81 - Other malaise Status: Acute Assessment and Plan: PT/OT as tolerated Will continue to follow. Subjective Date/time seen: 11/29/22 08:32 Interval history: Renae feels okay. Leo catheter came out yesterday. She has been making some urine. She had 3 episodes of shortness of breath last night. they lasted about 5minutes each. Her no other symptoms at the time without Wheezing she is eating well Exam Narrative: General: elderly female in NAD Heart: normal S1 and S2; no rub Lungs: clear Abdomen: soft, nontender, nondistended, positive bowel sounds Extremities: 1+ edema Skin: no rash or subcu nodules Objective Data Vital Signs Vital Signs: Vital Signs - 24 hr 11/28/22 14:00 11/28/22 19:34 11/28/22 22:00 Temperature 98.2 F 97.2 F L Pulse Rate 87 87 Respiratory Rate 22 H 18 Blood Pressure 123/60 115/54 L Pulse Oximetry 96 96 88 L Oxygen Delivery Room Air 11/29/22 06:00 Temperature 96.9 F L Pulse Rate 70 Respiratory Rate 20 Blood Pressure 103/55 L Pulse Oximetry 88 L Oxygen Delivery Intake/Output Intake/Output: Intake & Output 11/26/22 11/27/22 11/28/22 11/29/22 23:59 23:59 23:59 23:59 Intake Total 3500 2860 3740 1000 Output Total 4000 2350 2325 Balance -331 232 7704 1000 Meds/Results Medications: Active Medications Generic Name Dose Route Start Last Admin Trade Name Freq PRN Reason Stop Dose Admin Albuterol 2 puff 11/22/22 22:22 Albuterol Sulfate (*Sp) Aerosol 1 Puff INHALATION Q4H PRN shortness of breath or wheezing Docusate Sodium 100 mg 11/25/22 12:05 Docusate Sodium 100 Mg Capsule PO Q12H PRN Constipation Lactated Ringer's 1,000 mls @ 100 mls/hr 11/25/22 18:00 11/29/22 05:43 Lr - Lactated Ringers Iv IV CONT 100 mls/hr .Q10H [facility]ARY Administration Levothyroxine Sodium 75 mcg 11/23/22 06:30 11/29/22 05:42 Levothyroxine Sodium 75 Mcg Tablet PO 75 mcg DAILY@0630 [facility] Administration Levothyroxine Sodium 100 mcg 11/23/22 06:30 11/29/22 05:43 Levothyroxine Sodium 100 Mcg Tablet PO 100 mcg DAILY@0630 [facility] Administration Melatonin 5 mg 11/28/22 21:00 11/28/22 20:01 Melatonin 5 Mg Tablet PO 5 mg HS [facility]ARY Administration Miconazole Nitrate 1 applic 11/23/22 09:00 11/28/22 20:01 Miconazole 2% Antifungal Ointment 56 Gm TOPICAL 1 applic Q12HR [facility]ARY Administration Pantoprazole Sodium 40 mg 11/23/22 09:00 11/28/22 08:36 Pantopra
[2022-11-29] MEDS: PANTOPRAZOLE 40 MG TABLET PO (10:06)
[2022-11-29] MEDS: TOLNAFTATE 1% POWDER 45 GM BTL 1 APPLIC TOPICAL ×2 (10:06→21:19)
--- NOTE | 2022-11-29 10:45 | PM.IMPN ---
Progress Note: A&P Assessment and Plan (1) Obesity hypoventilation syndrome: Code(s): E66.2 - Morbid (severe) obesity with alveolar hypoventilation Status: Acute Assessment and Plan: Apnealink shows >143 mins of saturations <90% Will have patient get an outpatient sleep study Apnealink with 1LNC for tonight Will most likely need nocturnal oxygen. (2) Acute kidney injury: Code(s): N17.9 - Acute kidney failure, unspecified Status: Acute Assessment and Plan: DEZ with stable creatinine at approx 2.1. Less likely just dehydration, FENa is 2.1% suggestive of intrinsic disease. BUN and creatinine today are 21/1.90 Continue faustin catheter will need voiding trial soon Renal u/s not acutely deranged. Holding timur-i and thiazide. Have consulted nephrology. Check a BNP (3) UTI (urinary tract infection): Code(s): N39.0 - Urinary tract infection, site not specified Status: Acute Assessment and Plan: E. coli on cx from 11/22/22 Received and completed full course of Keflex Trend urine output resolved (4) Hallucinations: Code(s): R44.3 - Hallucinations, unspecified Status: Acute Assessment and Plan: Hallucinations have been an intermittent issue since September. No acute findings to suggest an etiology. She is dehydrated but improving which may contribute from uremia but this is less likely. Could also be the result of infection she denies sleeping well, could be a delirium as well could be onset of dementia Further o/p workup can be considered. (5) Hypokalemia: Code(s): E87.6 - Hypokalemia Status: Acute Assessment and Plan: Magnesium level 2.1, K 3.7 today Continue to trend Supplement as indicated (6) Pressure sore: Code(s): L89.90 - Pressure ulcer of unspecified site, unspecified stage Status: Acute Assessment and Plan: Pressure sores are improving. Wound care consulted Blood cultures are no growth at this time Continue antifungal cream seems to be related to urinary incontinence (7) Physical deconditioning: Code(s): R53.81 - Other malaise Status: Acute Assessment and Plan: Limited physical ability - likely etiology of wounds. Wound care consulted PT OT ordered Likely placement upon discharge for further therapy. (8) Pedal edema: Code(s): R60.0 - Localized edema Status: Acute Assessment and Plan: Stable on examination, chronic, echo with normal ef. most likely exacerbated by acute renal failure Tab aparicio, she refused to wear. Time Spent With Patient Time: ? 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 History obtained from: Patient ? History from independent sources: nephrology ? External chart review: Apnea link, saturation trends ? New problems addressed: desaturations ? Chronic illnesses addressed: kidney disease ? Independent interpretation of studies: Apnea link reports, chest xray from today ? Comorbidities complicating care: obesity ? Diagnostic tests considered but not ordered: ? Risk of complication: High ? Time spent on encounter: 53 minutes Time with patient: Greater than 35 minutes Subjective Date/time seen: 11/29/221044 Interval history: 11/29/221044 Patient was resting comfortably in bed. She denies any chest pain, shortness a breath, nausea, vomiting, diarrhea or constipation. She did state that she feels like she is not urinating. Will get a bladder scan however urine output is noted on the I&Os. She denies any abdominal pain or pressure. She is ready to go to rehab however still waiting for Auth. Labs and vital signs appear to be okay. Was able to collaborate with Nephrology about discharge plans. Patient was also noted to have some desaturation throughout the night. Will do ApneaLink w
--- NOTE | 2022-11-29 10:45 | P.PNIM_ITS ---
Progress Note: A&P Assessment and Plan (1) Obesity hypoventilation syndrome: Code(s): E66.2 - Morbid (severe) obesity with alveolar hypoventilation Status: Acute Assessment and Plan: * Apnealink shows >143 mins of saturations <90% * Will have patient get an outpatient sleep study * Apnealink with 1LNC for tonight * Will most likely need nocturnal oxygen. (2) Acute kidney injury: Code(s): N17.9 - Acute kidney failure, unspecified Status: Acute Assessment and Plan: DEZ with stable creatinine at approx 2.1. * Less likely just dehydration, * FENa is 2.1% suggestive of intrinsic disease. * BUN and creatinine today are 21.90 * Continue faustin catheter * will need voiding trial soon * Renal u/s not acutely deranged. * Holding timur-i and thiazide. * Have consulted nephrology. * Check a BNP (3) UTI (urinary tract infection): Code(s): N39.0 - Urinary tract infection, site not specified Status: Acute Assessment and Plan: * E. coli on cx from 11/22/22 * Received and completed full course of Keflex * Trend urine output * resolved (4) Hallucinations: Code(s): R44.3 - Hallucinations, unspecified Status: Acute Assessment and Plan: Hallucinations have been an intermittent issue since September. * No acute findings to suggest an etiology. She is dehydrated but improving which may contribute from uremia but this is less likely. * Could also be the result of infection * she denies sleeping well, could be a delirium as well * could be onset of dementia * Further o/p workup can be considered. (5) Hypokalemia: Code(s): E87.6 - Hypokalemia Status: Acute Assessment and Plan: * Magnesium level 2.1, * K 3.7 today * Continue to trend * Supplement as indicated (6) Pressure sore: Code(s): L89.90 - Pressure ulcer of unspecified site, unspecified stage Status: Acute Assessment and Plan: Pressure sores are improving. * Wound care consulted * Blood cultures are no growth at this time * Continue antifungal cream * seems to be related to urinary incontinence (7) Physical deconditioning: Code(s): R53.81 - Other malaise Status: Acute Assessment and Plan: Limited physical ability - likely etiology of wounds. * Wound care consulted * PT OT ordered * Likely placement upon discharge for further therapy. (8) Pedal edema: Code(s): R60.0 - Localized edema Status: Acute Assessment and Plan: Stable on examination, chronic, echo with normal ef. * most likely exacerbated by acute renal failure * Tab aparicio, she refused to wear. Time Spent With Patient Time: ? 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 History obtained from: Patient ? History from independent sources: nephrology ? External chart review: Apnea link, saturation trends ? New problems addressed: desaturations ? Chronic illnesses addressed: kidney disease ? Independent interpretation of studies: Apnea link reports, chest xray from today ? Comorbidities complicating care: obesity ? Diagnostic tests considered but not ordered: ? Risk of complication: High ? Time spent on encounter: 53 minutes Time with patient: Greater than 35 minutes
[2022-11-29 14:40] VITALS: BP 133/62; PULSE 72; RESP 18; TEMP 36.4; O2SAT 99
[2022-11-29] MEDS: RIVAROXABAN 20 MG TABLET PO (18:09)
[2022-11-29] MEDS: MELATONIN 5 MG TABLET PO (21:19)
[2022-11-29] MEDS: PARoxetine 20 MG TABLET PO (21:20)
[2022-11-29] MEDS: SIMVASTATIN 20 MG TABLET PO (21:20)
[2022-11-29 21:52] VITALS: BP 114/61; PULSE 76; RESP 18; TEMP 36.6; O2SAT 100
[2022-11-30] MEDS: LACTATED RINGERS 1,000 ML 100 ML IV CONT (05:49)
[2022-11-30] MEDS: LEVOTHYROXINE SODIUM 75 MCG TABLET PO (05:50)
[2022-11-30] MEDS: LEVOTHYROXINE SODIUM 100 MCG TABLET PO (05:50)
[2022-11-30 06:00] VITALS: BP 128/73; PULSE 77; RESP 18; TEMP 36.6; O2SAT 92
[2022-11-30 06:45] LABS: Basophils Percent Auto 0.4 % (0.2-1.2); Eosinophils Absolute Auto 0.1 K/mm3 (0-0.3); Eosinophils Percent Auto 1.6 % (0-4.4); Hematocrit 34.8 % (37.0-47.0); Hemoglobin 10.2 g/dL (12.0-15.0); Immature Granulocyte Absolute 0.02 K/mm3 (0.00-0.031); Immature Granulocyte Percent A 0.3 % (0-0.5); Lymphocytes Absolute Auto 1.24 K/mm3 (0.9-3.2); Lymphocytes Percent Auto 18.2 % (18.3-44.2); Mean Corpuscular HGB Conc 29.3 g/dl (32-36); Mean Corpuscular Volume 88.5 fl (80-100); Mean Platelet Volume 10.2 fl (7.4-10.4); Monocytes Absolute Auto 0.6 K/mm3 (0.1-0.6); Monocytes Percent Auto 8.8 % (2.6-8.5); Neutrophils Absolute Auto 4.8 K/mm3 (1.3-6.7); Neutrophils Percent Auto 70.7 % (45.5-73.1); Platelet Count Result 207 k/mm3 (150-375); Red Blood Count 3.93 M/mm3 (4.2-5.4); Red Cell Distribution Width 19.9 % (11.5-14.5); White Blood Count 6.8 K/mm3 (4.5-10.0)
[2022-11-30 06:56] LABS: Alanine Aminotransferase 14 U/L (6-35); Alkaline Phosphatase 58 U/L (38-126); Anion Gap 0 mmol/L (8-16); Aspartate Amino Transferase 18 U/L (14-36); Bilirubin,Total 0.4 mg/dL (0.2-1.3); Blood Urea Nitrogen 19 mg/dL (7-17); Calcium 8.4 mg/dL (8.4-10.2); Carbon Dioxide 30 mmol/L (22-30); Chloride 107 mmol/L (98-107); Estimated CRCL calculation 51 ml/min; Estimated Glomerular Filt Rate 32; Glucose 115 mg/dL (65-110); Magnesium 1.9 mg/dL (1.6-2.3); Potassium 4.2 mmol/L (3.4-5.0); Sodium 137 mmol/L (137-145)
[2022-11-30 07:09] LABS: Platelet Estimate Adequate (Adequate)
[2022-11-30 07:10] LABS: Anisocytosis 2+ (NORMAL); Hypochromasia 1+ (NORMAL); Schistocytes None Seen (NORMAL)
[2022-11-30] MEDS: PANTOPRAZOLE 40 MG TABLET PO (08:44)
[2022-11-30] MEDS: TOLNAFTATE 1% POWDER 45 GM BTL 1 APPLIC TOPICAL (08:45)
--- NOTE | 2022-11-30 10:00 | P.DS_ITS ---
DS: Admitting Diagnosis Discharge Date 11/29/22 1000 Admitting Diagnosis DEZ, UTI, pressure sore DS: Discharge Diagnosis Discharge Diagnosis (1) Acute kidney injury: Code(s): N17.9 - Acute kidney failure, unspecified Status: Acute Assessment and Plan: DEZ with stable creatinine at approx 2.1. * Less likely just dehydration, * FENa is 2.1% suggestive of intrinsic disease. * BUN and creatinine today are 21/1.90 * Continue faustin catheter * will need voiding trial soon * Renal u/s not acutely deranged. * Holding timur-i and thiazide. * Have consulted nephrology. * Check a BNP (2) UTI (urinary tract infection): Code(s): N39.0 - Urinary tract infection, site not specified Status: Acute Assessment and Plan: * E. coli on cx from 11/22/22 * Received and completed full course of Keflex * Trend urine output * resolved (3) Hallucinations: Code(s): R44.3 - Hallucinations, unspecified Status: Acute Assessment and Plan: Hallucinations have been an intermittent issue since September. * No acute findings to suggest an etiology. She is dehydrated but improving which may contribute from uremia but this is less likely. * Could also be the result of infection * she denies sleeping well, could be a delirium as well * could be onset of dementia * Further o/p workup can be considered. (4) Hypokalemia: Code(s): E87.6 - Hypokalemia Status: Acute Assessment and Plan: * Magnesium level 2.1, * K 3.7 today * Continue to trend * Supplement as indicated (5) Pressure sore: Code(s): L89.90 - Pressure ulcer of unspecified site, unspecified stage Status: Acute Assessment and Plan: Pressure sores are improving. * Wound care consulted * Blood cultures are no growth at this time * Continue antifungal cream * seems to be related to urinary incontinence (6) Physical deconditioning: Code(s): R53.81 - Other malaise Status: Acute Assessment and Plan: Limited physical ability - likely etiology of wounds. * Wound care consulted * PT OT ordered * Likely placement upon discharge for further therapy. (7) Pedal edema: Code(s): R60.0 - Localized edema Status: Acute Assessment and Plan: Stable on examination, chronic, echo with normal ef. * most likely exacerbated by acute renal failure * Tab aparicio, she refused to wear. (8) Obesity hypoventilation syndrome: Code(s): E66.2 - Morbid (severe) obesity with alveolar hypoventilation Status: Acute Assessment and Plan: * >143 mins of <90% SPO2 * Will need a sleep study * 2LNC at night for now * Chest xray clear DS: Summary Hospital Course Hospital Course: Patient is 71-year-old female with a past medical history of morbid obesity, hypertension, hyperlipidemia, hypothyroidism, depression, DVT who presented to the emergency department for evaluation of hallucinations and bedsores. Patient is noted to be incontinent and does wear pads. Upon arrival you a did appear infectious. Urine culture did grow E coli and patient was treated with ceftriaxone and Keflex. Patient has completed a full course of antibiotics for the UTI. Patient was also noted to have an DEZ with a
--- NOTE | 2022-11-30 10:00 | PM.DS ---
DS: Admitting Diagnosis Discharge Date 11/29/22 1000 Admitting Diagnosis DEZ, UTI, pressure sore DS: Discharge Diagnosis Discharge Diagnosis (1) Acute kidney injury: Code(s): N17.9 - Acute kidney failure, unspecified Status: Acute Assessment and Plan: DEZ with stable creatinine at approx 2.1. Less likely just dehydration, FENa is 2.1% suggestive of intrinsic disease. BUN and creatinine today are 21/1.90 Continue faustin catheter will need voiding trial soon Renal u/s not acutely deranged. Holding timur-i and thiazide. Have consulted nephrology. Check a BNP (2) UTI (urinary tract infection): Code(s): N39.0 - Urinary tract infection, site not specified Status: Acute Assessment and Plan: E. coli on cx from 11/22/22 Received and completed full course of Keflex Trend urine output resolved (3) Hallucinations: Code(s): R44.3 - Hallucinations, unspecified Status: Acute Assessment and Plan: Hallucinations have been an intermittent issue since September. No acute findings to suggest an etiology. She is dehydrated but improving which may contribute from uremia but this is less likely. Could also be the result of infection she denies sleeping well, could be a delirium as well could be onset of dementia Further o/p workup can be considered. (4) Hypokalemia: Code(s): E87.6 - Hypokalemia Status: Acute Assessment and Plan: Magnesium level 2.1, K 3.7 today Continue to trend Supplement as indicated (5) Pressure sore: Code(s): L89.90 - Pressure ulcer of unspecified site, unspecified stage Status: Acute Assessment and Plan: Pressure sores are improving. Wound care consulted Blood cultures are no growth at this time Continue antifungal cream seems to be related to urinary incontinence (6) Physical deconditioning: Code(s): R53.81 - Other malaise Status: Acute Assessment and Plan: Limited physical ability - likely etiology of wounds. Wound care consulted PT OT ordered Likely placement upon discharge for further therapy. (7) Pedal edema: Code(s): R60.0 - Localized edema Status: Acute Assessment and Plan: Stable on examination, chronic, echo with normal ef. most likely exacerbated by acute renal failure Tab hose, she refused to wear. (8) Obesity hypoventilation syndrome: Code(s): E66.2 - Morbid (severe) obesity with alveolar hypoventilation Status: Acute Assessment and Plan: >143 mins of <90% SPO2 Will need a sleep study 2LNC at night for now Chest xray clear DS: Summary Hospital Course Hospital Course: Patient is 71-year-old female with a past medical history of morbid obesity, hypertension, hyperlipidemia, hypothyroidism, depression, DVT who presented to the emergency department for evaluation of hallucinations and bedsores. Patient is noted to be incontinent and does wear pads. Upon arrival you a did appear infectious. Urine culture did grow E coli and patient was treated with ceftriaxone and Keflex. Patient has completed a full course of antibiotics for the UTI. Patient was also noted to have an DEZ with a creatinine of 2.90. Patient was started on IV fluids with no improvement. Nephrology was consulted FENa score was a 2.1. BUN creatinine has been trending down however is stable at this time at 19/1.60. Baseline creatinine is normal at 0.9. urinary catheter was inserted upon arrival and accurate I&Os were calculated. Patient was noted to be hypokalemic and potassium has been replaced as indicated. She does have pressure sores on the bilateral thighs which wound care did consult and wound seems to be getting better. Patient is also been working with PT and OT as she is physically deconditioned. Patient is also exhibiting some
--- NOTE | 2022-11-30 11:28 | PM.PNNEP ---
Progress Note: A&P Assessment and Plan (1) Acute kidney injury: Code(s): N17.9 - Acute kidney failure, unspecified Status: Acute Assessment and Plan: at baseline, she has a normal creatinine. evaluation to date: urine electrolytes non-prerenal renal ultrasound unremarkable CPK normal urine eosinophils rare perhaps mild ATN that is protracted. Multiple issues involved. she had a UTI -- she finished her antibiotics. relative hypotension on admission. Her blood pressure still is in the low 100s. She is off all of her antihypertensives. may have been exacerbated by quinapril/HCTZ use [employer] She is off these. there are other possible causes, however -- complements are okay and other serologies/immunofixation pending (2) UTI (urinary tract infection): Code(s): N39.0 - Urinary tract infection, site not specified Status: Acute Assessment and Plan: urine culture with E.coli off antibiotics (3) Hallucinations: Code(s): R44.3 - Hallucinations, unspecified Status: Acute Assessment and Plan: improved (4) Physical deconditioning: Code(s): R53.81 - Other malaise Status: Acute Assessment and Plan: PT/OT as tolerated Will continue to follow. Subjective Date/time seen: 11/30/22 11:28 Chart reviewed since last seen -- renal function slowly improving albeit slowly; no apparent issues voiced at the time of my visit; hoping for discharge this afternoon to rehab; no events overnight or earlier this AM. Exam Narrative: General: elderly female in NAD Heart: normal S1 and S2; no rub Lungs: clear anteriorly Abdomen: soft, nontender, nondistended, positive bowel sounds Extremities: no cyanosis or clubbing; 1+ edema Skin: warm and dry Objective Data Vital Signs Vital Signs: Vital Signs Temp Pulse Resp BP Pulse Ox O2 Del Method 11/30/22 08:00 Room Air 11/30/22 06:00 97.9 F 77 18 128/73 92 11/29/22 20:00 Room Air 11/29/22 21:52 97.8 F 76 18 114/61 100 11/29/22 14:40 97.6 F 72 18 133/62 99 Intake/Output Intake/Output: Intake & Output 01/27/23 01/28/23 01/29/23 01/30/23 23:59 23:59 23:59 23:59 Intake Total 2860 3740 2480 1790 Output Total 2350 2325 Balance 510 1415 2480 1790 Meds/Results Medications: Active Medications Generic Name Dose Route Start Last Admin Trade Name Freq PRN Reason Stop Dose Admin Albuterol 2 puff 11/22/22 22:22 Albuterol Sulfate (*Sp) Aerosol 1 Puff INHALATION Q4H PRN shortness of breath or wheezing Docusate Sodium 100 mg 11/25/22 12:05 Docusate Sodium 100 Mg Capsule PO Q12H PRN Constipation Lactated Ringer's 1,000 mls @ 100 mls/hr 11/25/22 18:00 11/30/22 08:45 Lr - Lactated Ringers Iv IV CONT Not Given .Q10H [facility] Levothyroxine Sodium 75 mcg 11/23/22 06:30 11/30/22 05:50 Levothyroxine Sodium 75 Mcg Tablet PO 75 mcg DAILY@0630 [facility] Administration Levothyroxine Sodium 100 mcg 11/23/22 06:30 11/30/22 05:50 Levothyroxine Sodium 100 Mcg Tablet PO 100 mcg DAILY@0630 [facility] Administration Melatonin 5 mg 11/28/22 21:00 11/29/22 21:19 Melatonin 5 Mg Tablet PO 5 mg HS [facility]1983 Administration Miconazole Nitrate 1 applic 11/23/22 09:00 11/30/22 08:45 Miconazole 2% Antifungal Ointment 56 Gm TOPICAL 1 applic Q12HR [facility] Administration Pantoprazole Sodium 40 mg 11/23/22 09:00 11/30/22 08:44 Pantoprazole 40 Mg Tablet PO 40 mg QAM [facility] Administration Paroxetine HCl 20 mg 11/22/22 22:30 11/29/22 21:20 Paroxetine 20 Mg Tablet PO 20 mg HS [facility] Administration Polyethylene Glycol 17 gm 11/26/22 12:38 Polyethylene Glycol 3350 17 Gm Powd.Pack PO QAM PRN Constipation Rivaroxaban 20 mg 11/23/22 17:00 11/29/22 18:09 Rivaroxaban 20 Mg Tablet PO 20 mg DAILY@1700 [facility] Administration Simvastatin 20 mg 11/22/22 22:30
--- NOTE | 2022-11-30 11:28 | P.PNNP_ITS ---
Progress Note: A&P Assessment and Plan (1) Acute kidney injury: Code(s): N17.9 - Acute kidney failure, unspecified Status: Acute Assessment and Plan: * at baseline, she has a normal creatinine. * evaluation to date: * urine electrolytes non-prerenal * renal ultrasound unremarkable * CPK normal * urine eosinophils rare * perhaps mild ATN that is protracted. Multiple issues involved. * she had a UTI -- she finished her antibiotics. * relative hypotension on admission. Her blood pressure still is in the low 100s. She is off all of her antihypertensives. * may have been exacerbated by quinapril/HCTZ use [employer] She is off these. * there are other possible causes, however -- complements are okay and other serologies/immunofixation pending (2) UTI (urinary tract infection): Code(s): N39.0 - Urinary tract infection, site not specified Status: Acute Assessment and Plan: * urine culture with E.coli * off antibiotics (3) Hallucinations: Code(s): R44.3 - Hallucinations, unspecified Status: Acute Assessment and Plan: * improved (4) Physical deconditioning: Code(s): R53.81 - Other malaise Status: Acute Assessment and Plan: * PT/OT as tolerated Will continue to follow. Subjective Date/time seen: 11/30/22 11:28 Chart reviewed since last seen -- renal function slowly improving albeit slowly; no apparent issues voiced at the time of my visit; hoping for discharge this afternoon to rehab; no events overnight or earlier this AM. Exam Narrative: General: elderly female in NAD Heart: normal S1 and S2; no rub Lungs: clear anteriorly Abdomen: soft, nontender, nondistended, positive bowel sounds Extremities: no cyanosis or clubbing; 1+ edema Skin: warm and dry Objective Data Vital Signs Vital Signs: Vital Signs Temp Pulse Resp BP Pulse Ox O2 Del Method 11/30/22 08:00 Room Air 11/30/22 06:00 97.9 F 77 18 128/73 92 11/29/22 20:00 Room Air 11/29/22 21:52 97.8 F 76 18 114/61 100 11/29/22 14:40 97.6 F 72 18 133/62 99 Intake/Output Intake/Output: Intake & Output 01/27/11/28/22 11/29/22 11/30/22 23:59 23:59 23:59 23:59 Intake Total 2860 3740 2480 1790 Output Total 2350 2325 Balance 510 1415 2480 1790 Meds/Results Medications: Active Medications Generic Name Dose Route Start Last Admin Trade Name Freq PRN Reason Stop Dose Admin Albuterol 2 puff 11/22/22 22:22 Albuterol Sulfate (*Sp) Aerosol 1 Puff INHALATION Q4H PRN shortness of breath or wheezing Docusate Sodium 100 mg 11/25/22 12:05 Docusate Sodium 100 Mg Capsule PO Q12H PRN Constipation Lactated Ringer's 1,000 mls @ 100 mls/hr 11/25/22 18:00 11/30/22 08:45 Lr - Lactated Ringers Iv IV CONT Not Given .Q10H [facility] Levothyroxine Sodium 75 mcg 11/23/22 06:30 11/30/22 05:50 Levothyroxine Sodium 75 Mcg Tablet PO 75 mcg DAILY@0630 [facility] Administration Levothyroxine Sodium 100 mcg 11/23/22 06:30 11/30/22 05:50 Levothyroxine Sodium 100 Mcg Tablet PO 100
[2022-11-30 13:08] LABS: EDCOVIDSCREEN Negative (Negative)
[2022-11-30 14:00] VITALS: BP 130/90; PULSE 75; RESP 20; TEMP 36.1; O2SAT 97
[2022-11-30 16:46] LABS: Kappa\\Lambda Light Chains 2.08 (0.26-1.65); Lambda Light Chain 31.3 mg/L (5.7-26.3)
[2022-11-30 18:09] LABS: Anti Glomerular Basement Memb <1.0 AI (<1.0)
[2022-11-30 22:50] LABS: Albumin 2.5 g/dL (3.8-4.8); Alpha 1 Globulin 0.4 g/dL (0.2-0.3); Alpha 2 Globulin 0.9 g/dL (0.5-0.9); Beta 1 Globulin 0.4 g/dL (0.4-0.6); Gamma Globulin 1.1 g/dL (0.8-1.7); Protein, Total 5.6 g/dL (6.1-8.1)
[2022-12-01 14:00] LABS: Creatinine, Random Urine 52 mg/dL (20-275); Total Protein/Creatinine Ratio 615 mg/g creat (24-184)
[2022-12-03 03:59] LABS: ANCA Screen Negative (Negative)
== END 2022-11-30 15:45 | DRG 683 ==
LOC: ANHED 12:08 → ANH3MEDSUR 17:45
PROVIDERS: Internal Medicine Critical Care Medicine; Internal Medicine Nephrology; Nurse Practitioner Family; Physician Assistant; Admitting Provider Internal Medicine; Emergency Provider Emergency Medicine; PCP Family Medicine; Visit Provider Nurse Practitioner
DX: N17.0 Acute kidney failure with tubular necrosis (principal); E66.2 Morbid (severe) obesity with alveolar hypoventilation; N39.0 Urinary tract infection, site not specified; R44.3 Hallucinations, unspecified; Z68.44 Body mass index [BMI] 60.0-69.9, adult; B96.20 Unspecified Escherichia coli [E. coli] as the cause of diseases classified elsewhere; E87.6 Hypokalemia; R60.0 Localized edema; E03.9 Hypothyroidism, unspecified; Z86.718 Personal history of other venous thrombosis and embolism; F32.A Depression, unspecified; L89.899 Pressure ulcer of other site, unspecified stage; E78.2 Mixed hyperlipidemia; Z20.822 Contact with and (suspected) exposure to COVID-19; Z87.891 Personal history of nicotine dependence; Z79.899 Other long term (current) drug therapy; Z91.048 Other nonmedicinal substance allergy status
CPT/HCPCS: 36415; 36600; 51702; 70450; 71045; 71046; 76775; 80048; 80053; 81001; 81050; 82140; 82375; 82550; 82570; 82607; 82805; 83050; 83520; 83605; 83735; 83880; 83883; 83930; 83935; 84100; 84132; 84155; 84156; 84165; 84166; 84300; 84443; 84484; 85025; 85027; 85610; 85730; 85999; 86036; 86038; 86160; 86225; 87040; 87077; 87086; 87088; 87186; 87426; 87636; 93005; 94762; 96361; 96365; 96374; 96376; 97110; 97161; 97165; 97530; 97535; 99285; A9270; C8929; C9803; G0378; J0696; J3480; J7030; J7040; J7120; Q9957

== ENCOUNTER 2023-06-03 11:44 | Outpatient (NON) | payer MEDICARE, SELFPAY ==
[2023-06-03 12:32] LABS: Hematocrit 44.3 % (37.0-47.0); Hemoglobin 13.6 g/dL (12.0-15.0); Mean Corpuscular HGB Conc 30.7 g/dl (32-36); Mean Corpuscular Hemoglobin 30.4 pg (26-34); Mean Corpuscular Volume 99.1 fl (80-100); Mean Platelet Volume 10.9 fl (7.4-10.4); Platelet Count Result 179 k/mm3 (150-375); Red Blood Count 4.47 M/mm3 (4.2-5.4); Red Cell Distribution Width 14.6 % (11.5-14.5); White Blood Count 4.7 K/mm3 (4.5-10.0)
[2023-06-03 12:42] LABS: Alanine Aminotransferase 17 U/L (6-35); Albumin Level 3.2 g/dL (3.5-5.1); Alkaline Phosphatase 63 U/L (38-126); Anion Gap 4 mmol/L (8-16); Aspartate Amino Transferase 20 U/L (14-36); Bilirubin,Total 0.7 mg/dL (0.2-1.3); Blood Urea Nitrogen 20 mg/dL (7-17); Calcium 8.6 mg/dL (8.4-10.2); Carbon Dioxide 33 mmol/L (22-30); Chloride 99 mmol/L (98-107); Cholesterol 115 mg/dL (0-200); Estimated Glomerular Filt Rate 49; Glucose 116 mg/dL (65-110); HDL Direct 28 mg/dL; Potassium 3.5 mmol/L (3.4-5.0); Sodium 136 mmol/L (137-145); Triglycerides 94 mg/dL (<150)
[2023-06-03 12:53] LABS: Hemoglobin A1C 5.5 % (<5.7)
[2023-06-03 12:54] LABS: LDL Cholesterol Direct 59 mg/dL
[2023-06-03 13:20] LABS: Free T4 Free Thyroxine 2.04 ng/mL (0.78-2.19)
== END 2023-06-03 11:45 | disposition home or self-care (01) ==
PROVIDERS: PCP Family Medicine; Visit Provider Family Medicine
DX: R73.03 Prediabetes (principal); I10 Essential (primary) hypertension; E78.2 Mixed hyperlipidemia; E66.8 Other obesity; E03.9 Hypothyroidism, unspecified; D64.9 Anemia, unspecified
CPT/HCPCS: 80053; 80061; 83036; 84439; 84443; 85027

== ENCOUNTER 2024-05-03 04:19 | Inpatient (IN) | payer MEDICARE, SELFPAY ==
[2024-05-03] VITALS (22 sets, daily range): BP systolic 102–162; BP diastolic 48–151; PULSE 61–92; RESP 12–20; TEMP 36.1–36.6; O2SAT 91–100; BMI 67.5
--- NOTE | ~2024-05-03 | XR_ITS ---
EXAMINATION: XR chest 1V portable Exam Date/Time: 05/06/2024 15:00 CDT HISTORY: exhersional hypoxia Comparison: 05/03/2024. RESULT: Lines, tubes, and devices: None. Lungs and pleura: Mild diffuse reticular opacities. Segmental airspace disease in the left medial phillip ng base. Cardiomediastinal silhouette: Stable. Other: No acute osseous or upper abdominal finding. IMPRESSION: Segmental left medial left basilar atelectasis/consolidation. Reviewed, dictated and finalized at location K.
--- NOTE | ~2024-05-03 | XR_ITS ---
EXAMINATION: XR chest 1V portable DATE: 05/03/2024 08:24 INDICATION: Cough. TECHNIQUE: A single frontal view of the chest was obtained. COMPARISON: Chest 2 views 11/29/2022 FINDINGS: There are airspace opacities at left lung base. No pleural effusion or pneumothorax. The he art size is normal. There is a moderate-sized hiatal hernia. IMPRESSION: 1. Moderate-sized hiatal hernia. 2. Airspace opacities at left lung base, consistent with atelectasis versus pneumonia. Reviewed, dictated and finalized at location A. IMPRESSION: 1. Moderate-sized hiatal hernia. 2. Airspace opacities at left lung base, consistent with atelectasis versus pne umonia.
--- NOTE | ~2024-05-03 | XR_ITS ---
AP and lateral views of the left femur Clinical History: Pain Findings: No acute fracture or dislocation is seen. Osseous alignment is anatomic. There is severe de generative change of the knee. Left hip joint space is grossly intact. Soft tissues are unremarkable. Impression: No definite fracture or dislocation seen. Evaluation the proximal femur is suboptimal due to patient body habitus and poor penetration. If there is persistent clinical concern for hip fracture, then CT or MR would be recommended. Severe tricompartmental degenerative change of the knee. Reviewed, dictated and finalized at location M. Impression: No definite fracture or dislocation seen. Evaluation the proximal femur is subo ptimal due to patient body habitus and poor penetration. If there is persistent clinical concern for hip fracture, then CT or MR would be recommended. Severe tricompartmental degenerative change of the knee.
--- NOTE | 2024-05-03 05:05 | ED.BACK ---
HPI - Back Pain/Injury General Chief Complaint: Back Pain/Injury Stated Complaint: Lower back pain Time Seen by Provider: 05/03/24 04:26 History of Present Illness HPI Narrative: Patient is a 73-year-old female with history of prior DVT in the left lower extremity, on anticoagulation, obesity, hypothyroidism, hypertension, prediabetes, depression here with left leg pain. Patient states she has had chronic pain in her left leg, she believes that she has been having possibly some back pain as well as left leg pain worse over the last few weeks. She went to see her primary care doctor's office about 2 weeks ago. She notes that she has significant anxiety and has difficulty attending her appointments. After this she went home and she was in her lift chair. She states that she has stated that lift chair since that appointment. At baseline she does not walk and typically is able to pivot from her wheelchair to her lift chair at home. She states that she has a caregiver come to the house 3 times a week, she came yesterday and she typically performs sponge baths on her. She additionally states that her son visits her on the weekends. When EMS arrived at her house today they noted that they could smell foul smell of urine from outside of her door and that she was covered in urine and feces sitting in her chair at home. Patient believes she has been in this chair since her appointment a couple of weeks ago. Related Data Home Medications Medication Instructions Recorded Confirmed albuterol sulfate 90 mcg/actuation 2 puff inhalation BID shortness of 05/03/24 05/03/24 aerosol inhaler breath or wheezing Allergies Allergy/AdvReac Type Severity Reaction Status Date / Time adhesive tape Allergy Mild Rash Verified 05/03/24 08:58 nitrofurantoin Allergy Unknown Skin Verified 05/03/24 08:58 Reaction Review of Systems Review of Systems: All systems reviewed & are unremarkable except as noted in HPI and below PMFSH Past Medical History Medical History Chronic anticoagulation Deep venous thrombosis Depression Detached retina (12/31/14) History of venous thromboembolism Hypertension Hypothyroidism Metabolic syndrome Mixed hyperlipidemia Morbid obesity Prediabetes Small bowel obstruction (06/2011) Secondary to incarcerated incisional hernia. Surgical History Surgical History History of cataract extraction (2013) History of section History of incisional hernia repair (06/27/11) Incarcerated incisional hernia repair with mesh. History of total hysterectomy (2002) Family History Family History Father Esophageal cancer Mother Sepsis Other No family history of cardiovascular disease Social History Social History Social History: Caffeine-None Surrogate medical decision maker: Arnel Griffith, fela. Code status: Full code. Smoking packs per day: 1 Smoking cigarettes per day: 20.0 Years smoked: 10 Smoking pack-years: 10.00 Smoking status: Former smoker Smoking end date: 05/03/96 Alcohol intake: never Substance use: never Substance use type: does not use Do You Feel Safe in your Home?: Yes Lack of Transportation: No Lack of Food: Never True Current Housing: I Have Housing Concerned About Future Housing: No Difficulty Paying Gas/Electric Bills: No Difficulty Paying for Meds: No Currently Unemployed: No Education: Don't Know Difficulty w/ Childcare or Family Care: No Living arrangements: alone Additional living arrangements comments: Lives in a ranch style home in [place]. for 3 years. Has 3 grown children. 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
[2024-05-03] MEDS: ACETAMINOPHEN 500 MG TABLET 1000 MG PO (06:43)
[2024-05-03 06:47] LABS: Basophils Percent Auto 0.4 % (0.2-1.2); Eosinophils Absolute Auto 0.1 K/mm3 (0-0.3); Eosinophils Percent Auto 0.8 % (0-4.4); Hemoglobin 14.8 g/dL (12.0-15.0); Immature Granulocyte Absolute 0.02 K/mm3 (0.00-0.031); Immature Granulocyte Percent A 0.3 % (0-0.5); Lymphocytes Absolute Auto 1.07 K/mm3 (0.9-3.2); Lymphocytes Percent Auto 14.2 % (18.3-44.2); Mean Corpuscular HGB Conc 31.5 g/dl (32-36); Mean Corpuscular Hemoglobin 31.4 pg (26-34); Mean Corpuscular Volume 99.8 fl (80-100); Mean Platelet Volume 10.3 fl (7.4-10.4); Monocytes Absolute Auto 0.6 K/mm3 (0.1-0.6); Monocytes Percent Auto 8.4 % (2.6-8.5); Neutrophils Absolute Auto 5.7 K/mm3 (1.3-6.7); Neutrophils Percent Auto 75.9 % (45.5-73.1); Platelet Count Result 207 k/mm3 (150-375); Red Blood Count 4.71 M/mm3 (4.2-5.4); Red Cell Distribution Width 14.7 % (11.5-14.5); White Blood Count 7.5 K/mm3 (4.5-10.0)
[2024-05-03 07:13] LABS: Appearance Urine Turbid (Clear); Bacteria Urine 4+ /hpf; Bilirubin Urine 1+ (Negative); Blood Urine 3+ (Negative); Glucose Urine UA Negative (Negative); Ketones Urine Negative (Negative); Leukocyte Esterase Ur 3+ LEU/UL (Negative); Need Manual Microscopic Reviewed; Nitrate Urine Positive (Negative); Protein Urine 3+ mg/dL (Negative); RBC Urine >100 /hpf (0-2); Specific Grav Ur 1.029 (1.001-1.035); Squamous Epithelial Cell Urine None Seen /hpf (Few); Triple Phosphate Crystal Urine Present /hpf; WBC Urine >100 /hpf (0-3); pH Urine 8.5 (5.0-9.0)
[2024-05-03 07:14] LABS: Add Urine Microscopic? YES; Color Urine Light Red (Yellow)
[2024-05-03 07:24] LABS: Creatine Kinase 41 U/L (30-135)
[2024-05-03 07:55] LABS: Alanine Aminotransferase 13 U/L (6-35); Albumin Level 3.8 g/dL (3.5-5.1); Alkaline Phosphatase 74 U/L (38-126); Anion Gap 5 mmol/L (4-12); Aspartate Amino Transferase 22 U/L (14-36); Blood Urea Nitrogen 32 mg/dL (7-17); Calcium 9.2 mg/dL (8.4-10.2); Carbon Dioxide 35 mmol/L (22-30); Chloride 102 mmol/L (98-107); Estimated CRCL calculation 74 ml/min; Estimated Glomerular Filt Rate > 60; Glucose 114 mg/dL (65-110); Potassium 4.1 mmol/L (3.4-5.0); Sodium 142 mmol/L (137-145)
--- NOTE | 2024-05-03 12:40 | ADMGEN ---
This patient, Renae Griffith, was admitted to [facility] Surg Room 321-01. Patient/family oriented to hospital policies and general routines including ID bracelet, bed and alarms, visiting hours, pain management, procedures, bathroom and other care routines, personal items, smoking policy, room service/diet, and visiting hours. Information on how to activate the Rapid Response Team has been discussed. Patient/Family are encouraged to report perceived risks to care and to ask questions if they do not understand what they are told or what they should do. report from evangelista in [place].
--- NOTE | 2024-05-03 13:25 | PM.IMHP ---
H&P: HPI History of Present Illness Date/Time: 05/03/24 13:25 Chief Complaint: left leg pain, back pain Narrative: 73-year-old female with PMH/o DVT in the left lower extremity- on anticoagulation, obesity, hypothyroidism, hypertension, prediabetes, depression arthritis here with left leg pain. Patient states she has had chronic pain in her left leg. She has a h/o BLE swelling- for which her PCP prescribes her lasix. She saw her PCP 2 weeks ago. She had been having significant anxiety and has difficulty attending her appointments. After this she went home and she was in her lift chair. She states that she has stated that lift chair since that appointment. At baseline she does not walk and typically is able to pivot from her wheelchair to her lift chair at home- however she completed 3 sessions with PT and was able to pivot to commode from the chair- but then PT sessions ended and she didnot continue to do exercises. She was unable to use compression stockings as it is too hard to put them on She states that she has a caregiver come to the house 3 times a week-for the total of 26h a week and her son comes on the weekend to check on her and help out When EMS arrived at her house today they noted that they could smell foul smell of urine from outside of her door and that she was covered in urine and feces sitting in her chair at home. Patient believes she has been in this chair since her appointment a couple of weeks ago. basic lab work, L leg xray and UA. Anticipate from at least a safety stand point patient will likely require hospitalization to set up better resources either in a facility or at home. Labs reviewed: WBC wnc, HG stable, CR 0.90, BUN 32 PT is seen and examined- she is alert, pleasant. Anterior aspect to rt foot is swollen and slightly erythematous PMFSH Past Medical History Medical History Chronic anticoagulation Deep venous thrombosis Depression Detached retina (12/31/14) History of venous thromboembolism Hypertension Hypothyroidism Metabolic syndrome Mixed hyperlipidemia Morbid obesity Prediabetes Small bowel obstruction (06/2011) Secondary to incarcerated incisional hernia. Surgical History Surgical History History of cataract extraction (2013) History of section History of incisional hernia repair (06/27/11) Incarcerated incisional hernia repair with mesh. History of total hysterectomy (2002) Family History Family History Father Esophageal cancer Mother Sepsis Other No family history of cardiovascular disease Social History Social History Social History: Caffeine-None Surrogate medical decision maker: Arnel Griffith, son. Code status: Full code. Smoking packs per day: 1 Smoking cigarettes per day: 20.0 Years smoked: 10 Smoking pack-years: 10.00 Smoking status: Former smoker Smoking end date: 05/03/96 Alcohol intake: never Substance use: never Substance use type: does not use Do You Feel Safe in your Home?: Yes Lack of Transportation: No Lack of Food: Never True Current Housing: I Have Housing Concerned About Future Housing: No Difficulty Paying Gas/Electric Bills: No Difficulty Paying for Meds: No Currently Unemployed: No Education: Don't Know Difficulty w/ Childcare or Family Care: No Living arrangements: alone Additional living arrangements comments: Lives in a ranch style home in [place]. for 3 years. Has 3 grown children. 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 Spiritual care concerns: No Agree to blood products: Yes Meds Home Medications and Allergies Home Medications Medication Instructions Recorded Co
[2024-05-03] MEDS: ALBUTEROL SULFATE (*SP) AEROSOL 1 PUFF 2 PUFF INHALATION (20:01)
[2024-05-03] MEDS: ACETAMINOPHEN 325 MG TABLET 650 MG PO (20:18)
[2024-05-03] MEDS: PANTOPRAZOLE 40 MG TABLET PO (20:18)
[2024-05-03] MEDS: SIMVASTATIN 20 MG TABLET PO (20:18)
--- NOTE | 2024-05-03 23:15 | PC.NURSE ---
This RN and PCT offered to change patient and clean her up. Pt stated I do not want to be changed until the morning .
[2024-05-04] MEDS: LEVOTHYROXINE SODIUM 75 MCG TABLET PO (05:29)
[2024-05-04] MEDS: LEVOTHYROXINE SODIUM 100 MCG TABLET PO (05:29)
[2024-05-04 05:38] VITALS: BP 118/54; PULSE 77; RESP 20; TEMP 36.3; O2SAT 92
[2024-05-04 07:29] LABS: Hematocrit 42.8 % (37.0-47.0); Hemoglobin 13.7 g/dL (12.0-15.0); Mean Corpuscular Hemoglobin 31.9 pg (26-34); Mean Corpuscular Volume 99.5 fl (80-100); Mean Platelet Volume 10.2 fl (7.4-10.4); Platelet Count Result 173 k/mm3 (150-375); Red Cell Distribution Width 14.9 % (11.5-14.5); White Blood Count 5.6 K/mm3 (4.5-10.0)
[2024-05-04] MEDS: ALBUTEROL SULFATE (*SP) AEROSOL 1 PUFF 2 PUFF INHALATION (07:40)
[2024-05-04 07:41] LABS: Anion Gap 3 mmol/L (4-12); Blood Urea Nitrogen 29 mg/dL (7-17); Calcium 8.6 mg/dL (8.4-10.2); Carbon Dioxide 32 mmol/L (22-30); Chloride 105 mmol/L (98-107); Creatine Kinase 31 U/L (30-135); Estimated CRCL calculation 70 ml/min; Estimated Glomerular Filt Rate 49; Glucose 107 mg/dL (65-110); Potassium 3.7 mmol/L (3.4-5.0); Sodium 140 mmol/L (137-145)
[2024-05-04 07:42] VITALS: O2SAT 90
[2024-05-04] MEDS: FUROSEMIDE 40 MG TABLET BY MOUTH (09:03)
[2024-05-04] MEDS: PANTOPRAZOLE 40 MG TABLET PO ×2 (09:03→20:21)
[2024-05-04] MEDS: ESCITALOPRAM OXALATE 10 MG TABLET 20 MG PO (09:03)
[2024-05-04] MEDS: FERROUS SULFATE DRIED 142 MG TABCR PO (09:03)
--- NOTE | 2024-05-04 09:56 | PM.IMPN ---
Progress Note: A&P Assessment and Plan (1) Generalized weakness: Code(s): R53.1 - Weakness Status: Acute Assessment and Plan: - safety concerns for pt to stay at home as not able to move as much as she used to - will order PT/OT - possible placement to snf for strength - working with care coordination for SNF placement (2) Physical deconditioning: Code(s): R53.81 - Other malaise Status: Acute Assessment and Plan: see above (3) Morbid obesity: Code(s): E66.01 - Morbid (severe) obesity due to excess calories Status: Acute Assessment and Plan: -decrease mobility largely de to obesity - will repeat hga1c to see if any metabolic complication Plan h/o depression: on home lexapro-will continue h/o anemia: on home iron- will continue h/o gerds: on home omeprazole- will continue h/o hypothyroidism: Om HOME LEVOTHYROXINE-CONTINUE h/o DVT; will continue xarelto h/o hld_ will continue simvastatin Time Spent With Patient Time with patient: 25 - 35 minutes Subjective Date/time seen: 05/04/24 09:56 Interval history: Narrative: 73-year-old female with PMH/o DVT in the left lower extremity- on anticoagulation, obesity, hypothyroidism, hypertension, prediabetes, depression arthritis here with left leg pain. Patient states she has had chronic pain in her left leg. She has a h/o BLE swelling- for which her PCP prescribes her lasix. She saw her PCP 2 weeks ago. She had been having significant anxiety and has difficulty attending her appointments. After this she went home and she was in her lift chair. She states that she has stated that lift chair since that appointment. At baseline she does not walk and typically is able to pivot from her wheelchair to her lift chair at home- however she completed 3 sessions with PT and was able to pivot to commode from the chair- but then PT sessions ended and she didnot continue to do exercises. She was unable to use compression stockings as it is too hard to put them on She states that she has a caregiver come to the house 3 times a week-for the total of 26h a week and her son comes on the weekend to check on her and help out When EMS arrived at her house today they noted that they could smell foul smell of urine from outside of her door and that she was covered in urine and feces sitting in her chair at home. Patient believes she has been in this chair since her appointment a couple of weeks ago. basic lab work, L leg xray and UA. Anticipate from at least a safety stand point patient will likely require hospitalization to set up better resources either in a facility or at home. Labs reviewed: WBC wnc, HG stable, CR 0.90, BUN 32 PT is seen and examined- she is alert, pleasant. Anterior aspect to rt foot is swollen and slightly erythematous 05/04- PT/OT saw pt yesterday- recommend long term. Will work with care coordination to facilitate this. She is up in the chair this am- alert and oriented, in good mood. Reports some difficulties sleeping but has tylenol available if needed. Objective Data Vital Signs Vital Signs: Vital Signs - 24 hr 05/03/24 11:00 05/03/24 14:00 05/03/24 14:56 Temperature 97.0 F L 97.9 F Pulse Rate 66 71 Respiratory Rate 18 20 Blood Pressure 102/60 111/80 Pulse Oximetry 94 93 Oxygen Delivery Room Air 05/03/24 20:06 05/03/24 21:45 05/04/24 05:38 Temperature 97.6 F 97.3 F L Pulse Rate 77 77 Respiratory Rate 20 20 Blood Pressure 116/74 118/54 L Pulse Oximetry 91 93 92 Oxygen Delivery Room Air 05/04/24 07:42 Temperature Pulse Rate Respiratory Rate Blood Pressure Pulse Oximetry 90 Oxygen Delivery Room Air Intake/Output Intake/Output: Intake & Output 05/01/24 05/02/24 05/03/24 05/04/24 23:59 23:59 23:59 23:59 Intake Total 1090 350 Output Total 1 Balance 1089 350 Meds/Results Medications: Active Medications Generic Name Dose Route Start Last Admin Trad
[2024-05-04 10:18] LABS: Hemoglobin A1C 5.4 % (<5.7)
[2024-05-04] MEDS: ACETAMINOPHEN 325 MG TABLET 650 MG PO ×2 (11:04→17:28)
[2024-05-04 14:00] VITALS: BP 114/83; PULSE 75; RESP 20; TEMP 36.4; O2SAT 91
[2024-05-04 20:00] VITALS: BP 115/57; PULSE 54; RESP 20; TEMP 35.7; O2SAT 91
[2024-05-04] MEDS: SIMVASTATIN 20 MG TABLET PO (20:21)
[2024-05-04] MEDS: RIVAROXABAN 20 MG TABLET PO (20:21)
[2024-05-05] VITALS (9 sets, daily range): BP systolic 105–140; BP diastolic 59; PULSE 58–67; RESP 16–18; TEMP 35.8–36.6; O2SAT 87–100
--- NOTE | 2024-05-05 06:02 | PCRCNOTE ---
Window of time for administration has passed. See next scheduled administration.
[2024-05-05] MEDS: LEVOTHYROXINE SODIUM 100 MCG TABLET PO (06:32)
[2024-05-05] MEDS: LEVOTHYROXINE SODIUM 75 MCG TABLET PO (06:32)
[2024-05-05 06:37] LABS: Hemoglobin 13.5 g/dL (12.0-15.0); Mean Corpuscular HGB Conc 32.1 g/dl (32-36); Mean Corpuscular Hemoglobin 31.5 pg (26-34); Mean Corpuscular Volume 97.9 fl (80-100); Platelet Count Result 180 k/mm3 (150-375); Red Blood Count 4.29 M/mm3 (4.2-5.4); White Blood Count 4.7 K/mm3 (4.5-10.0)
[2024-05-05 06:45] LABS: Anion Gap 3 mmol/L (4-12); Blood Urea Nitrogen 27 mg/dL (7-17); Calcium 8.7 mg/dL (8.4-10.2); Carbon Dioxide 34 mmol/L (22-30); Chloride 104 mmol/L (98-107); Estimated CRCL calculation 70 ml/min; Estimated Glomerular Filt Rate 49; Glucose 112 mg/dL (65-110); Potassium 3.6 mmol/L (3.4-5.0); Sodium 141 mmol/L (137-145)
[2024-05-05] MEDS: FERROUS SULFATE DRIED 142 MG TABCR PO (07:36)
[2024-05-05] MEDS: ACETAMINOPHEN 325 MG TABLET 650 MG PO ×2 (07:36→20:27)
[2024-05-05] MEDS: TOLNAFTATE 1% POWDER 45 GM BTL 1 APPLIC TOPICAL ×2 (07:36→20:32)
[2024-05-05] MEDS: ESCITALOPRAM OXALATE 10 MG TABLET 20 MG PO (07:36)
[2024-05-05] MEDS: PANTOPRAZOLE 40 MG TABLET PO ×2 (07:36→20:28)
[2024-05-05] MEDS: FUROSEMIDE 40 MG TABLET BY MOUTH (07:37)
--- NOTE | 2024-05-05 08:23 | PM.IMPN ---
Progress Note: A&P Assessment and Plan (1) Generalized weakness: Code(s): R53.1 - Weakness Status: Acute Assessment and Plan: - safety concerns for pt to stay at home as not able to move as much as she used to - will order PT/OT - possible placement to snf for strength - working with care coordination for SNF placement (2) Physical deconditioning: Code(s): R53.81 - Other malaise Status: Acute Assessment and Plan: see above (3) Morbid obesity: Code(s): E66.01 - Morbid (severe) obesity due to excess calories Status: Acute Assessment and Plan: -decrease mobility largely de to obesity - will repeat hga1c to see if any metabolic complication Plan h/o depression: on home lexapro-will continue h/o anemia: on home iron- will continue h/o gerds: on home omeprazole- will continue h/o hypothyroidism: Om HOME LEVOTHYROXINE-CONTINUE h/o DVT; will continue xarelto h/o hld_ will continue simvastatin Time Spent With Patient Time with patient: 25 - 35 minutes Subjective Date/time seen: 05/05/24 08:23 Interval history: Narrative: 73-year-old female with PMH/o DVT in the left lower extremity- on anticoagulation, obesity, hypothyroidism, hypertension, prediabetes, depression arthritis here with left leg pain. Patient states she has had chronic pain in her left leg. She has a h/o BLE swelling- for which her PCP prescribes her lasix. She saw her PCP 2 weeks ago. She had been having significant anxiety and has difficulty attending her appointments. After this she went home and she was in her lift chair. She states that she has stated that lift chair since that appointment. At baseline she does not walk and typically is able to pivot from her wheelchair to her lift chair at home- however she completed 3 sessions with PT and was able to pivot to commode from the chair- but then PT sessions ended and she didnot continue to do exercises. She was unable to use compression stockings as it is too hard to put them on She states that she has a caregiver come to the house 3 times a week-for the total of 26h a week and her son comes on the weekend to check on her and help out When EMS arrived at her house today they noted that they could smell foul smell of urine from outside of her door and that she was covered in urine and feces sitting in her chair at home. Patient believes she has been in this chair since her appointment a couple of weeks ago. basic lab work, L leg xray and UA. Anticipate from at least a safety stand point patient will likely require hospitalization to set up better resources either in a facility or at home. Labs reviewed: WBC wnc, HG stable, CR 0.90, BUN 32 PT is seen and examined- she is alert, pleasant. Anterior aspect to rt foot is swollen and slightly erythematous 05/04- PT/OT saw pt yesterday- recommend correction. Will work with care coordination to facilitate this. She is up in the chair this am- alert and oriented, in good mood. Reports some difficulties sleeping but has tylenol available if needed. 05/05- pt is seen and examined. Still c/o weakness and leg swelling but working with PT/ot and using Acewrap whcih helps. WBC is stable. Cr is 1.10- (was as high as 2.9 last year). Objective Data Vital Signs Vital Signs: Vital Signs - 24 hr 05/04/24 14:00 05/04/24 20:00 05/04/24 20:00 Temperature 97.5 F L 96.3 F L Pulse Rate 75 54 L Respiratory Rate 20 20 Blood Pressure 114/83 115/57 L Pulse Oximetry 91 91 Oxygen Delivery Room Air 05/05/24 05:55 Temperature 96.4 F L Pulse Rate 67 Respiratory Rate 18 Blood Pressure 140/59 L Pulse Oximetry 91 Oxygen Delivery Intake/Output Intake/Output: Intake & Output 05/02/24 05/03/24 05/04/24 05/05/24 23:59 23:59 23:59 23:59 Intake Total 1090 1900 640 Output Total 1 2 Balance 1089 1898 640 Meds/Results Medications: Active Medications Generic Name Dose Route Start Last Admin Trade
[2024-05-05] MEDS: ALBUTEROL SULFATE (*SP) AEROSOL 1 PUFF 2 PUFF INHALATION ×2 (10:37→21:18)
[2024-05-05] MEDS: RIVAROXABAN 20 MG TABLET PO (20:28)
[2024-05-05] MEDS: SIMVASTATIN 20 MG TABLET PO (20:28)
[2024-05-06] VITALS (7 sets, daily range): BP systolic 106–143; BP diastolic 58–78; PULSE 54–65; RESP 16–20; TEMP 35.7–36.7; O2SAT 88–99
[2024-05-06] MEDS: LEVOTHYROXINE SODIUM 75 MCG TABLET PO (06:23)
[2024-05-06] MEDS: LEVOTHYROXINE SODIUM 100 MCG TABLET PO (06:23)
[2024-05-06 06:26] LABS: Hematocrit 45.5 % (37.0-47.0); Hemoglobin 13.7 g/dL (12.0-15.0); Mean Corpuscular HGB Conc 30.1 g/dl (32-36); Mean Corpuscular Hemoglobin 30.9 pg (26-34); Mean Corpuscular Volume 102.7 fl (80-100); Mean Platelet Volume 10.1 fl (7.4-10.4); Platelet Count Result 178 k/mm3 (150-375); Red Blood Count 4.43 M/mm3 (4.2-5.4); Red Cell Distribution Width 14.7 % (11.5-14.5); White Blood Count 4.5 K/mm3 (4.5-10.0)
--- NOTE | 2024-05-06 06:35 | PC.NURSE ---
On 05/06/24, the CUFFER, [ Jerica], provided care and [facility]. I have reviewed the CUFFER's documentation and agree with the findings.
[2024-05-06 06:41] LABS: Anion Gap 1 mmol/L (4-12); Blood Urea Nitrogen 24 mg/dL (7-17); Calcium 8.6 mg/dL (8.4-10.2); Carbon Dioxide 37 mmol/L (22-30); Chloride 103 mmol/L (98-107); Estimated CRCL calculation 76 ml/min; Estimated Glomerular Filt Rate 55; Glucose 98 mg/dL (65-110); Potassium 3.5 mmol/L (3.4-5.0); Sodium 141 mmol/L (137-145)
[2024-05-06] MEDS: ALBUTEROL SULFATE (*SP) AEROSOL 1 PUFF 2 PUFF INHALATION ×2 (06:59→21:10)
[2024-05-06] MEDS: ESCITALOPRAM OXALATE 10 MG TABLET 20 MG PO (07:55)
[2024-05-06] MEDS: TOLNAFTATE 1% POWDER 45 GM BTL 1 APPLIC TOPICAL ×2 (07:55→19:48)
[2024-05-06] MEDS: FUROSEMIDE 40 MG TABLET BY MOUTH (07:55)
[2024-05-06] MEDS: ACETAMINOPHEN 325 MG TABLET 650 MG PO ×2 (07:55→19:46)
[2024-05-06] MEDS: FERROUS SULFATE DRIED 142 MG TABCR PO (07:55)
[2024-05-06] MEDS: PANTOPRAZOLE 40 MG TABLET PO ×2 (07:55→19:47)
--- NOTE | 2024-05-06 08:51 | PM.IMPN ---
Progress Note: A&P Assessment and Plan (1) Generalized weakness: Code(s): R53.1 - Weakness Status: Acute Assessment and Plan: - safety concerns for pt to stay at home as not able to move as much as she used to - will order PT/OT - possible placement to snf for strength - working with care coordination for SNF placement (2) Physical deconditioning: Code(s): R53.81 - Other malaise Status: Acute Assessment and Plan: see above (3) Morbid obesity: Code(s): E66.01 - Morbid (severe) obesity due to excess calories Status: Acute Assessment and Plan: -decrease mobility largely de to obesity - will repeat hga1c to see if any metabolic complication (4) Hypoxemia: Code(s): R09.02 - Hypoxemia Status: Acute Assessment and Plan: - o2 sat dropped yesterday with exertion and this morning - will order chest xray to ensure no pneumonia - will need sleep studies once outpt to ecal for LION - may need o2 home eval prior to discharge Plan h/o depression: on home lexapro-will continue h/o anemia: on home iron- will continue h/o gerds: on home omeprazole- will continue h/o hypothyroidism: Om HOME LEVOTHYROXINE-CONTINUE h/o DVT; will continue xarelto h/o hld_ will continue simvastatin Time Spent With Patient Time with patient: 25 - 35 minutes Subjective Date/time seen: 05/06/24 08:51 Interval history: Narrative: 73-year-old female with PMH/o DVT in the left lower extremity- on anticoagulation, obesity, hypothyroidism, hypertension, prediabetes, depression arthritis here with left leg pain. Patient states she has had chronic pain in her left leg. She has a h/o BLE swelling- for which her PCP prescribes her lasix. She saw her PCP 2 weeks ago. She had been having significant anxiety and has difficulty attending her appointments. After this she went home and she was in her lift chair. She states that she has stated that lift chair since that appointment. At baseline she does not walk and typically is able to pivot from her wheelchair to her lift chair at home- however she completed 3 sessions with PT and was able to pivot to commode from the chair- but then PT sessions ended and she didnot continue to do exercises. She was unable to use compression stockings as it is too hard to put them on She states that she has a caregiver come to the house 3 times a week-for the total of 26h a week and her son comes on the weekend to check on her and help out When EMS arrived at her house today they noted that they could smell foul smell of urine from outside of her door and that she was covered in urine and feces sitting in her chair at home. Patient believes she has been in this chair since her appointment a couple of weeks ago. basic lab work, L leg xray and UA. Anticipate from at least a safety stand point patient will likely require hospitalization to set up better resources either in a facility or at home. Labs reviewed: WBC wnc, HG stable, CR 0.90, BUN 32 PT is seen and examined- she is alert, pleasant. Anterior aspect to rt foot is swollen and slightly erythematous 7/- PT/OT saw pt yesterday- recommend long-term. Will work with care coordination to facilitate this. She is up in the chair this am- alert and oriented, in good mood. Reports some difficulties sleeping but has tylenol available if needed. 7/- pt is seen and examined. Still c/o weakness and leg swelling but working with PT/ot and using Acewrap which helps. WBC is stable. Cr is 1.10- (was as high as 2.9 last year). 7/6- pt is doing well- working with PT/OT-reports getting stronger. Wearing timur wrapps and tolerating it well. Labs and vs reviewed and stable. Pt o2 level dropped with bed change- she became somewhat sob- but recovered. Was placed on oxygen. she denies wearing cpap. unsure if she was tested for LION. Given BMI- would be a good idea to follow up with sleep studies as outpt. Will order chest xray he
[2024-05-06] MEDS: RIVAROXABAN 20 MG TABLET PO (19:46)
[2024-05-06] MEDS: SIMVASTATIN 20 MG TABLET PO (19:46)
[2024-05-07] VITALS (9 sets, daily range): BP systolic 110–117; BP diastolic 55–77; PULSE 55–89; RESP 17–20; TEMP 36.4–36.5; O2SAT 91–100
[2024-05-07] MEDS: LEVOTHYROXINE SODIUM 100 MCG TABLET PO (06:08)
[2024-05-07] MEDS: LEVOTHYROXINE SODIUM 75 MCG TABLET PO (06:08)
[2024-05-07 06:19] LABS: Hemoglobin 13.7 g/dL (12.0-15.0); Mean Corpuscular HGB Conc 29.8 g/dl (32-36); Mean Corpuscular Hemoglobin 31.1 pg (26-34); Mean Corpuscular Volume 104.5 fl (80-100); Mean Platelet Volume 9.9 fl (7.4-10.4); Platelet Count Result 174 k/mm3 (150-375); Red Cell Distribution Width 14.5 % (11.5-14.5); White Blood Count 5.2 K/mm3 (4.5-10.0)
[2024-05-07 06:42] LABS: Anion Gap 4 mmol/L (4-12); Blood Urea Nitrogen 22 mg/dL (7-17); Calcium 8.6 mg/dL (8.4-10.2); Carbon Dioxide 36 mmol/L (22-30); Chloride 101 mmol/L (98-107); Estimated CRCL calculation 84 ml/min; Estimated Glomerular Filt Rate > 60; Glucose 96 mg/dL (65-110); Potassium 3.7 mmol/L (3.4-5.0); Sodium 141 mmol/L (137-145)
[2024-05-07] MEDS: ALBUTEROL SULFATE (*SP) AEROSOL 1 PUFF 2 PUFF INHALATION ×2 (06:56→19:35)
[2024-05-07] MEDS: FERROUS SULFATE DRIED 142 MG TABCR PO (07:44)
[2024-05-07] MEDS: FUROSEMIDE 40 MG TABLET BY MOUTH (07:44)
[2024-05-07] MEDS: ESCITALOPRAM OXALATE 10 MG TABLET 20 MG PO (07:44)
[2024-05-07] MEDS: PANTOPRAZOLE 40 MG TABLET PO ×2 (07:44→19:48)
[2024-05-07] MEDS: ACETAMINOPHEN 325 MG TABLET 650 MG PO ×2 (07:45→22:26)
[2024-05-07] MEDS: TOLNAFTATE 1% POWDER 45 GM BTL 1 APPLIC TOPICAL ×2 (07:45→19:54)
--- NOTE | 2024-05-07 09:08 | PM.IMPN ---
Progress Note: A&P Assessment and Plan (1) Generalized weakness: Code(s): R53.1 - Weakness Status: Acute Assessment and Plan: - safety concerns for pt to stay at home as not able to move as much as she used to - will order PT/OT - possible placement to snf for strength - working with care coordination for SNF placement (2) Physical deconditioning: Code(s): R53.81 - Other malaise Status: Acute Assessment and Plan: see above (3) Morbid obesity: Code(s): E66.01 - Morbid (severe) obesity due to excess calories Status: Acute Assessment and Plan: -decrease mobility largely de to obesity - will repeat hga1c to see if any metabolic complication (4) Hypoxemia: Code(s): R09.02 - Hypoxemia Status: Acute Assessment and Plan: - o2 sat dropped yesterday with exertion and this morning - will order chest xray to ensure no pneumonia - will need sleep studies once outpt to ecal for LION - may need o2 home eval prior to discharge -consistent with initial presentation on chest xray. Airspace opacities at left lung base, consistent with atelectasis versus pneumonia- but now increased o2 requirements especially with movement (since we want her to move more and work with PT/OT)- so will be prudent to treat for pneumonia- will add 5 days levoflaxin. - continue IS (5) Recurrent UTI: Code(s): N39.0 - Urinary tract infection, site not specified Status: Acute Assessment and Plan: - on cetriaxone- day 4 today (05/07) - cultures and sensitivities reviewed- continue - will switch to PO tomorrow Plan h/o depression: on home lexapro-will continue h/o anemia: on home iron- will continue h/o gerds: on home omeprazole- will continue h/o hypothyroidism: On HOME LEVOTHYROXINE-CONTINUE h/o DVT; will continue xarelto h/o hld_ will continue simvastatin Time Spent With Patient Time with patient: 25 - 35 minutes Subjective Date/time seen: 05/07/24 09:08 Interval history: Narrative: 73-year-old female with PMH/o DVT in the left lower extremity- on anticoagulation, obesity, hypothyroidism, hypertension, prediabetes, depression arthritis here with left leg pain. Patient states she has had chronic pain in her left leg. She has a h/o BLE swelling- for which her PCP prescribes her lasix. She saw her PCP 2 weeks ago. She had been having significant anxiety and has difficulty attending her appointments. After this she went home and she was in her lift chair. She states that she has stated that lift chair since that appointment. At baseline she does not walk and typically is able to pivot from her wheelchair to her lift chair at home- however she completed 3 sessions with PT and was able to pivot to commode from the chair- but then PT sessions ended and she didnot continue to do exercises. She was unable to use compression stockings as it is too hard to put them on She states that she has a caregiver come to the house 3 times a week-for the total of 26h a week and her son comes on the weekend to check on her and help out When EMS arrived at her house today they noted that they could smell foul smell of urine from outside of her door and that she was covered in urine and feces sitting in her chair at home. Patient believes she has been in this chair since her appointment a couple of weeks ago. basic lab work, L leg xray and UA. Anticipate from at least a safety stand point patient will likely require hospitalization to set up better resources either in a facility or at home. Labs reviewed: WBC wnc, HG stable, CR 0.90, BUN 32 PT is seen and examined- she is alert, pleasant. Anterior aspect to rt foot is swollen and slightly erythematous 05/04- PT/OT saw pt yesterday- recommend fci. Will work with care coordination to facilitate this. She is up in the chair this am- alert and oriented, in good mood. Reports some difficulties sleeping but has tylenol available if needed.
[2024-05-07] MEDS: levoFLOXacin 750 MG TABLET PO (10:00)
[2024-05-07] MEDS: SACCHAROMYCES BOULARDII 250 MG CAPSULE PO ×2 (11:48→16:53)
[2024-05-07] MEDS: RIVAROXABAN 20 MG TABLET PO (19:48)
[2024-05-07] MEDS: SIMVASTATIN 20 MG TABLET PO (19:48)
[2024-05-08] VITALS (10 sets, daily range): BP systolic 107–127; BP diastolic 41–65; PULSE 56–60; RESP 19–22; TEMP 36.1–36.7; O2SAT 94–100
--- NOTE | 2024-05-08 06:10 | PC.NURSE ---
I have reviewed the patients charting and agree with the documentation at this time. Will continue to monitor and evaluated patients condition and status.
[2024-05-08] MEDS: LEVOTHYROXINE SODIUM 75 MCG TABLET PO (06:12)
[2024-05-08] MEDS: LEVOTHYROXINE SODIUM 100 MCG TABLET PO (06:12)
[2024-05-08 06:28] LABS: Hematocrit 43.7 % (37.0-47.0); Mean Corpuscular HGB Conc 29.7 g/dl (32-36); Mean Corpuscular Volume 104.3 fl (80-100); Mean Platelet Volume 9.8 fl (7.4-10.4); Platelet Count Result 167 k/mm3 (150-375); Red Blood Count 4.19 M/mm3 (4.2-5.4); Red Cell Distribution Width 14.3 % (11.5-14.5); White Blood Count 5.3 K/mm3 (4.5-10.0)
[2024-05-08 06:38] LABS: Anion Gap 3 mmol/L (4-12); Blood Urea Nitrogen 22 mg/dL (7-17); Calcium 8.6 mg/dL (8.4-10.2); Carbon Dioxide 39 mmol/L (22-30); Chloride 99 mmol/L (98-107); Estimated CRCL calculation 84 ml/min; Estimated Glomerular Filt Rate > 60; Glucose 100 mg/dL (65-110); Sodium 141 mmol/L (137-145)
[2024-05-08] MEDS: ALBUTEROL SULFATE (*SP) AEROSOL 1 PUFF 2 PUFF INHALATION ×2 (08:17→20:13)
--- NOTE | 2024-05-08 08:46 | PM.IMPN ---
Progress Note: A&P Assessment and Plan (1) Generalized weakness: Code(s): R53.1 - Weakness Status: Acute Assessment and Plan: - safety concerns for pt to stay at home as not able to move as much as she used to - will order PT/OT - possible placement to snf for strength - working with care coordination for SNF placement (2) Physical deconditioning: Code(s): R53.81 - Other malaise Status: Acute Assessment and Plan: see above (3) Morbid obesity: Code(s): E66.01 - Morbid (severe) obesity due to excess calories Status: Acute Assessment and Plan: -decrease mobility largely de to obesity - will repeat hga1c to see if any metabolic complication (4) Hypoxemia: Code(s): R09.02 - Hypoxemia Status: Acute Assessment and Plan: - o2 sat dropped yesterday with exertion and this morning - will order chest xray to ensure no pneumonia - will need sleep studies once outpt to ecal for LION - may need o2 home eval prior to discharge -consistent with initial presentation on chest xray. Airspace opacities at left lung base, consistent with atelectasis versus pneumonia- but now increased o2 requirements especially with movement (since we want her to move more and work with PT/OT)- so will be prudent to treat for pneumonia- will add 5 days levoflaxin. - continue IS (5) Recurrent UTI: Code(s): N39.0 - Urinary tract infection, site not specified Status: Acute Assessment and Plan: - on cetriaxone- day 4 today (05/07) - cultures and sensitivities reviewed- continue - will switch to PO tomorrow 05/08 completed course Plan h/o depression: on home lexapro-will continue h/o anemia: on home iron- will continue h/o gerds: on home omeprazole- will continue h/o hypothyroidism: On HOME LEVOTHYROXINE-CONTINUE h/o DVT; will continue xarelto h/o hld_ will continue simvastatin Time Spent With Patient Time with patient: 25 - 35 minutes Subjective Date/time seen: 05/08/24 08:46 Interval history: Narrative: 73-year-old female with PMH/o DVT in the left lower extremity- on anticoagulation, obesity, hypothyroidism, hypertension, prediabetes, depression arthritis here with left leg pain. Patient states she has had chronic pain in her left leg. She has a h/o BLE swelling- for which her PCP prescribes her lasix. She saw her PCP 2 weeks ago. She had been having significant anxiety and has difficulty attending her appointments. After this she went home and she was in her lift chair. She states that she has stated that lift chair since that appointment. At baseline she does not walk and typically is able to pivot from her wheelchair to her lift chair at home- however she completed 3 sessions with PT and was able to pivot to commode from the chair- but then PT sessions ended and she didnot continue to do exercises. She was unable to use compression stockings as it is too hard to put them on She states that she has a caregiver come to the house 3 times a week-for the total of 26h a week and her son comes on the weekend to check on her and help out When EMS arrived at her house today they noted that they could smell foul smell of urine from outside of her door and that she was covered in urine and feces sitting in her chair at home. Patient believes she has been in this chair since her appointment a couple of weeks ago. basic lab work, L leg xray and UA. Anticipate from at least a safety stand point patient will likely require hospitalization to set up better resources either in a facility or at home. Labs reviewed: WBC wnc, HG stable, CR 0.90, BUN 32 PT is seen and examined- she is alert, pleasant. Anterior aspect to rt foot is swollen and slightly erythematous 05/04- PT/OT saw pt yesterday- recommend snf. Will work with care coordination to facilitate this. She is up in the chair this am- alert and oriented, in good mood. Reports some difficulties sleeping but has tylenol
[2024-05-08] MEDS: PANTOPRAZOLE 40 MG TABLET PO ×2 (09:09→20:59)
[2024-05-08] MEDS: ESCITALOPRAM OXALATE 10 MG TABLET 20 MG PO (09:09)
[2024-05-08] MEDS: TOLNAFTATE 1% POWDER 45 GM BTL 1 APPLIC TOPICAL ×2 (09:09→20:59)
[2024-05-08] MEDS: FERROUS SULFATE DRIED 142 MG TABCR PO (09:09)
[2024-05-08] MEDS: FUROSEMIDE 40 MG TABLET BY MOUTH (09:09)
[2024-05-08] MEDS: SACCHAROMYCES BOULARDII 250 MG CAPSULE PO ×3 (09:09→16:42)
[2024-05-08] MEDS: ACETAMINOPHEN 325 MG TABLET 650 MG PO ×2 (09:13→18:35)
[2024-05-08] MEDS: levoFLOXacin 750 MG TABLET PO (16:42)
[2024-05-08] MEDS: RIVAROXABAN 20 MG TABLET PO (20:59)
[2024-05-08] MEDS: SIMVASTATIN 20 MG TABLET PO (20:59)
[2024-05-09] VITALS (7 sets, daily range): BP systolic 93–130; BP diastolic 57–72; PULSE 51–85; RESP 16–18; TEMP 36.2–37.1; O2SAT 94–100
--- NOTE | 2024-05-09 | ECHO_ITS ---
Patient Info Name: Renae Griffith Age: 73 years : 1950 Gender: Female Ht: 65 in Wt: 405 lbs BSA: 3.03 m2 HR: 60 bpm BP: 117 / 60 mmHg Technical Quality: Fair Exam Date: 05/09/2024 11:29 AM Exam Location: Echo Lab Patient Status: Inpatient Admit Date: 05/08/2024 Staff Ordering Physician: Carito Siddiqui APRN Metal Bench Patternmaker: Mahogany Clay RDCS Attending Provider: Kavon Meneses MD Referring Physician: Artur DOLL; Exam Type: CA echo dop color flow w con Study Info Indications I50.20 - Unspecified systolic (congestive) heart failure Complete two-dimensional, color flow and Doppler transthoracic echocardiogram is performed with contrast to opacify the left ventricle and to improve the deliniation of the left ventricle endocardial borders. Contrast/Agitated Saline Contrast/Ag. Saline: Definity Amount: 2.00 ml Summary 1. Definity contrast administered improved wall motion interpretation. 2. Left ventricular chamber dimension is normal. 3. Left ventricular systolic function is normal, estimated at 60-65%. 4. The left ventricular diastolic function is grade I diastolic dysfunction. 5. E/e' 12 is mildly elevated. 6. There is mild aortic valve sclerosis. 7. There is trace mitral valve regurgitation. Left Ventricle E/e' 12 is mildly elevated. Definity contrast administered improved wall motion interpretation. Left ventricular chamber dimension is normal. Left ventricular systolic function is normal, estimated at 60-65%. The left ventricular diastolic function is grade I diastolic dysfunction. Right Ventricle Right ventricular systolic function is normal and with normal TAPSE 2.3 cm. Right ventricular chamber dimension is normal. Left Atria Left atrial chamber dimension is normal. Right Atria Right atrial chamber dimension is normal. Aortic Valve The aortic valve is trileaflet. There is mild aortic valve sclerosis. There is no aortic valve stenosis. There is no aortic valve regurgitation. Pulmonic Valve There is no pulmonic regurgitation. Mitral Valve There is no mitral valve stenosis. There is trace mitral valve regurgitation. Tricuspid Valve There is no tricuspid valve regurgitation. Pericardium/Pleural There is no pericardial effusion. Inferior Vena Cava Normal inferior vena cava with >50% collapse upon inspiration consistent with normal right atrial pressure, 5 mmHg. Aorta The aortic root size at the sinus of Valsalva is normal. Left Ventricular Outflow Tract Name Value Normal LVOT 2D LVOT Diameter 1.97 cm LVOT Doppler LVOT Peak Gradient 3 mmHg LVOT Mean Gradient 2 mmHg LVOT VTI 19.92 cm LVOT VTI/AV VTI Ratio 0.72 LVOT Stroke Volume 60.46 ml LVOT CO 3.39 l/min LVOT CI 1.12 L/min/m2 Pulmonic Valve Name Value Normal RVOT Doppler
[2024-05-09] MEDS: LEVOTHYROXINE SODIUM 75 MCG TABLET PO (06:17)
[2024-05-09] MEDS: LEVOTHYROXINE SODIUM 100 MCG TABLET PO (06:18)
[2024-05-09 06:22] LABS: Hematocrit 43.1 % (37.0-47.0); Mean Corpuscular HGB Conc 30.2 g/dl (32-36); Mean Corpuscular Hemoglobin 31.3 pg (26-34); Mean Corpuscular Volume 103.6 fl (80-100); Platelet Count Result 159 k/mm3 (150-375); Red Blood Count 4.16 M/mm3 (4.2-5.4); Red Cell Distribution Width 14.1 % (11.5-14.5); White Blood Count 4.4 K/mm3 (4.5-10.0)
[2024-05-09] MEDS: ACETAMINOPHEN 325 MG TABLET 650 MG PO ×2 (06:38→23:18)
[2024-05-09 06:43] LABS: Blood Urea Nitrogen 19 mg/dL (7-17); Calcium 8.7 mg/dL (8.4-10.2); Carbon Dioxide > 40 mmol/L (22-30); Chloride 97 mmol/L (98-107); Estimated CRCL calculation 94 ml/min; Estimated Glomerular Filt Rate > 60; Glucose 92 mg/dL (65-110); Potassium 3.5 mmol/L (3.4-5.0); Sodium 140 mmol/L (137-145)
--- NOTE | 2024-05-09 07:27 | PM.IMPN ---
Progress Note: A&P Assessment and Plan (1) Generalized weakness: Code(s): R53.1 - Weakness Status: Acute Assessment and Plan: - safety concerns for pt to stay at home as not able to move as much as she used to - will order PT/OT - possible placement to snf for strength - working with care coordination for SNF placement (2) Physical deconditioning: Code(s): R53.81 - Other malaise Status: Acute Assessment and Plan: see above (3) Morbid obesity: Code(s): E66.01 - Morbid (severe) obesity due to excess calories Status: Acute Assessment and Plan: -decrease mobility largely de to obesity - will repeat hga1c to see if any metabolic complication (4) Hypoxemia: Code(s): R09.02 - Hypoxemia Status: Acute Assessment and Plan: - o2 sat dropped yesterday with exertion and this morning - will order chest xray to ensure no pneumonia - will need sleep studies once outpt to eval for LION - may need o2 home eval prior to discharge -consistent with initial presentation on chest xray. Airspace opacities at left lung base, consistent with atelectasis versus pneumonia- but now increased o2 requirements especially with movement (since we want her to move more and work with PT/OT)- so will be prudent to treat for pneumonia- will add 5 days levoflaxin. - continue IS 05/09- will consult pulm today- and do home oxygen test She does have a history of elevated bnp- last echo was done on 11/23/22- EF 60-65%. IT could be cardiac related vs resp in nature. - Plan: will add Echo, ABG, TSH, add lasix IV. (5) Recurrent UTI: Code(s): N39.0 - Urinary tract infection, site not specified Status: Acute Assessment and Plan: - on cetriaxone- day 4 today (05/07) - cultures and sensitivities reviewed- continue - will switch to PO tomorrow 05/08 completed course Plan h/o depression: on home lexapro-will continue h/o anemia: on home iron- will continue h/o gerds: on home omeprazole- will continue h/o hypothyroidism: On HOME LEVOTHYROXINE-CONTINUE h/o DVT; will continue xarelto h/o hld_ will continue simvastatin Time Spent With Patient Time with patient: Greater than 35 minutes Subjective Date/time seen: 05/09/24 07:27 Interval history: Narrative: 73-year-old female with PMH/o DVT in the left lower extremity- on anticoagulation, obesity, hypothyroidism, hypertension, prediabetes, depression arthritis here with left leg pain. Patient states she has had chronic pain in her left leg. She has a h/o BLE swelling- for which her PCP prescribes her lasix. She saw her PCP 2 weeks ago. She had been having significant anxiety and has difficulty attending her appointments. After this she went home and she was in her lift chair. She states that she has stated that lift chair since that appointment. At baseline she does not walk and typically is able to pivot from her wheelchair to her lift chair at home- however she completed 3 sessions with PT and was able to pivot to commode from the chair- but then PT sessions ended and she didnot continue to do exercises. She was unable to use compression stockings as it is too hard to put them on She states that she has a caregiver come to the house 3 times a week-for the total of 26h a week and her son comes on the weekend to check on her and help out When EMS arrived at her house today they noted that they could smell foul smell of urine from outside of her door and that she was covered in urine and feces sitting in her chair at home. Patient believes she has been in this chair since her appointment a couple of weeks ago. basic lab work, L leg xray and UA. Anticipate from at least a safety stand point patient will likely require hospitalization to set up better resources either in a facility or at home. Labs reviewed: WBC wnc, HG stable, CR 0.90, BUN 32 PT is seen and examined- she is alert, pleasant. Anterior aspect to rt foot is swollen and slightl
[2024-05-09] MEDS: FERROUS SULFATE DRIED 142 MG TABCR PO (08:43)
[2024-05-09] MEDS: SACCHAROMYCES BOULARDII 250 MG CAPSULE PO ×3 (08:43→16:34)
[2024-05-09] MEDS: TOLNAFTATE 1% POWDER 45 GM BTL 1 APPLIC TOPICAL ×2 (08:44→20:23)
[2024-05-09] MEDS: PANTOPRAZOLE 40 MG TABLET PO ×2 (08:49→20:21)
[2024-05-09] MEDS: FUROSEMIDE 40 MG TABLET BY MOUTH (08:49)
[2024-05-09] MEDS: ESCITALOPRAM OXALATE 10 MG TABLET 20 MG PO (08:49)
[2024-05-09] MEDS: ALBUTEROL SULFATE (*SP) AEROSOL 1 PUFF 2 PUFF INHALATION ×2 (09:00→19:53)
[2024-05-09 10:42] LABS: NT Pro B Type Natriuretic Pept 478 pg/mL (19.9-100)
--- NOTE | 2024-05-09 11:02 | PC.NURSE ---
neurology tech at bedside performing Echo while sitting in chair.
[2024-05-09 11:25] LABS: Alveolar/Arterial O2 Gradient 66.6 mmHg; Base Excess ABG 8.2 mEq/l (+/-2.0); Fractional Inspired Oxygen 28 %; HCO3 ABG 35.7 mEq/l (22.0-26.0); Oxygen Content ABG 19.4 %vol (16.0-22.0); Oxygen Saturation ABG 90.6 % (95.0-100.0); Oxyhemoglobin 90.1 % THb (90.0-100.0); PO2 ABG 61.4 mmHg (80.0-100.0); PO2 FiO2 Ratio Arterial Blood 2.19 %; Total Hemoglobin 15.3 g/dL (12.0-18.0); pH ABG 7.387 (7.350-7.450)
[2024-05-09 11:27] LABS: PCO2 ABG 60.7 mmHg (35.0-45.0)
[2024-05-09 11:28] LABS: Device NASAL CANNULA; Modified Allen's Test Pass; Site Drawn RIGHT RADIAL
[2024-05-09 12:23] LABS: Free T4 Free Thyroxine Reflex 1.26 ng/dL (0.78-2.19)
[2024-05-09] MEDS: PERFLUTREN LIPID MICROSPHERES 1.5 ML VIAL DILUTED TO 10 ML TOTAL VOLUME IV PUSH (12:41)
--- NOTE | 2024-05-09 12:42 | IVDEFINITY ---
Prior to administration of IV Definity the patient was educated on the risks and benefits of the imaging enhancing agent including potential adverse side effects. The patient verbalized understanding. Allergies were verified. No exclusion criteria were identified and at least one of the following inclusion criteria were met: 1) physician request, 2) patient technically difficult to image (per the [place] [employer] guidelines of two or more segments not discernable within the apical view), or 3) questionable left ventricular function. ?
[2024-05-09] MEDS: FUROSEMIDE INJ 40 MG/4 ML VIAL IV PUSH ×2 (13:09→20:21)
--- NOTE | 2024-05-09 13:19 | PM.CNPUL ---
Assessment and Plan Assessment and plan (1) Atelectasis: Code(s): J98.11 - Atelectasis Status: Acute Assessment and Plan: Seen on CXR; Left medial lung base shows atelectasis. The remainder of the chest x-ray does not appear to show pneumonia and she does not have pneumonia symptoms. She had Rocephin IV and then was placed on Levaquin for concerns about pneumonia. She does not have purulence sputum, fever or elevated white blood cell count. Her chest x-ray appears to show pulmonary vascular redistribution. (2) Hypothyroidism, unspecified: Code(s): E03.9 - Hypothyroidism, unspecified Status: Acute Assessment and Plan: TSH is 9.24, moderately elevated with normal free T4 and low T3, nonspecific pattern but definitely consistent with hypothyroidism. Hypothyroidism can worsen hypercarbic respiratory failure and promote respiratory muscle dysfunction. See below. I will defer management of thyroid issues to hospitalist team. She does not see endocrine as out-patient. (3) Metabolic alkalosis with respiratory acidosis: Code(s): E87.4 - Mixed disorder of acid-base balance Status: Acute Assessment and Plan: Respiratory acidosis probably chronic with acute and chronic metabolic alkalosis. She has compensated pH so this is not an urgent issue. This is the first ABG she has had since Nov 2022 when she had mild respiratory acidosis. ABG 05/09/24 showing pH 7.38, pCO2 60.7, pO2 61.4 on 1 L/min, HCO3 35.7, saturation 90.6. (4) Hypoxemia: Code(s): R09.02 - Hypoxemia Status: Acute Assessment and Plan: She has required oxygen 1 L currently, was higher a few days ago. Has not had O2 at home. Prior smoker; large body; her hypoxemia is a combination of atelectasis, immobility, poor pulmonary hygiene, restrictive impairment due to massive obesity, and possibly some obstructive lung disease due to smoking. Continue to wean the oxygen as tolerated she can not do a walk study before going home because of her immobility. (5) Obesity hypoventilation syndrome: Code(s): E66.2 - Morbid (severe) obesity with alveolar hypoventilation Status: Acute Assessment and Plan: Likely diagnosis, currently her ABG on 1 L is result of chronic respiratory acidosis and more acute metabolic alkalosis. She has not had sleep testing. She will probably never be able to have actual sleep testing because she is too immobile to get into the sleep lab. We will try to qualify her for an NPPV in order to get her diagnosed and treated prior to leaving [facility]. Plan plan: 1. Add Cornet valve to improve atelectasis and clear secretions with ipratropium solution. This may improve oxygenation. 2. She would benefit from more diuresis. She has not had phosphorus or magnesium checked since arrival. Her K+ is 3.5 today, needs replacement. Electrolytes need to be replenished before diuresis with IV Lasix. Discussed with Carito Siddiqui. 3. Acetazolamide for contraction alkalosis. 4. ApneaLink tonight on 2 L/min O2; this is to qualify her for a nppv and O2 with sleep. She is not opposed to wearing PAP; may have undiagnosed LION. She had a sleep study at an outside facility, says that her results were average, not given PAP therapy however not opposed to it. 5. She has moderately high TSH 9.24, low T3 and normal free T4. Not a typical pattern; likely has hypothyroidism which can and does worsen hypercapnia. She is on replacement thyroxine. 6. Morbid obesity, may have obesity hypoventilation syndrome. She has not had a visit in person with her primary since 2021 due to harp
[2024-05-09 14:05] LABS: Total Triiodothyronine (T3) 0.81 NG/ML (0.97-1.69)
[2024-05-09 15:39] LABS: Phosphorus 3.3 mg/dL (2.5-4.5)
[2024-05-09] MEDS: WATER, STERILE FOR INJECTION 10 ML VIAL XX (16:34)
[2024-05-09] MEDS: levoFLOXacin 750 MG TABLET PO (16:34)
[2024-05-09] MEDS: acetaZOLAMIDE SODIUM FOR INJ 500 MG VIAL IV PUSH (16:34)
[2024-05-09] MEDS: POTASSIUM PHOS/SODIUM PHOS 250 MG TABLET PO (17:23)
[2024-05-09] MEDS: RIVAROXABAN 20 MG TABLET PO (20:21)
[2024-05-09] MEDS: SIMVASTATIN 20 MG TABLET PO (20:21)
[2024-05-09] MEDS: MAGNESIUM OXIDE 200 MG TABLET PO (20:21)
[2024-05-09] MEDS: FLUTICASONE PROPIONATE 0.05% NA SPR 16 GM BTL (*BKC) 1 SPRAY NASAL (20:27)
[2024-05-10] VITALS (8 sets, daily range): BP systolic 104–129; BP diastolic 57–97; PULSE 56–60; RESP 12–20; TEMP 35.9–36.6; O2SAT 94–100; BMI 10.0
[2024-05-10] MEDS: LEVOTHYROXINE SODIUM 100 MCG TABLET PO (05:19)
[2024-05-10] MEDS: LEVOTHYROXINE SODIUM 75 MCG TABLET PO (05:19)
[2024-05-10] MEDS: ALBUTEROL SULFATE (*SP) AEROSOL 1 PUFF 2 PUFF INHALATION ×2 (07:49→20:30)
[2024-05-10] MEDS: ESCITALOPRAM OXALATE 10 MG TABLET 20 MG PO (08:41)
[2024-05-10] MEDS: SACCHAROMYCES BOULARDII 250 MG CAPSULE PO ×3 (08:41→17:26)
[2024-05-10] MEDS: MAGNESIUM OXIDE 200 MG TABLET PO ×2 (08:41→20:51)
[2024-05-10] MEDS: FERROUS SULFATE DRIED 142 MG TABCR PO (08:41)
[2024-05-10] MEDS: FUROSEMIDE INJ 40 MG/4 ML VIAL IV PUSH ×2 (08:42→17:27)
[2024-05-10] MEDS: FLUTICASONE PROPIONATE 0.05% NA SPR 16 GM BTL (*BKC) 1 SPRAY NASAL ×2 (08:42→20:52)
[2024-05-10] MEDS: PANTOPRAZOLE 40 MG TABLET PO ×2 (08:42→20:51)
[2024-05-10] MEDS: TOLNAFTATE 1% POWDER 45 GM BTL 1 APPLIC TOPICAL ×2 (08:43→20:52)
--- NOTE | 2024-05-10 09:22 | PM.IMPN ---
Progress Note: A&P Assessment and Plan (1) Generalized weakness: Code(s): R53.1 - Weakness Status: Acute Assessment and Plan: Prior to this admission patient was able to ambulate from bed to chair. However leading up to this admission patient was unable to lift herself from the chair lift and was stuck their for at least a week. Weakness likely related to deconditioning and underlying infection. - PT/OT Patient unable to transfer from bed to chair - Care coordination following for possible SNF placement (2) Recurrent UTI: Code(s): N39.0 - Urinary tract infection, site not specified Status: Acute Assessment and Plan: - UA: light red color with turbid appearance, 3+ protein, 3+ blood, positive nitrates, 1+ bili, 3+ leukocytes, > 100 RBC, > 100 WBC, triple phos cystrals present - UC obtained on 05/03: proteus mirabilis with resistance to bactrim and macrobid - previous micro reviewed 11/22/22: ecoli pansensitive - started on levaquin 05/08 (3) Atelectasis: Code(s): J98.11 - Atelectasis Status: Acute Assessment and Plan: - Chest XR 05/06: Segmental left medial left basilar atelectasis/consolidation - Pulmonology consulted Cornet valve added with ipratropium solutions Continue diuresis Acetazolamide - ApneaLink 2 L NC: AHI 6.6, PEPE 10.2, 22 minutes with SpO2 < 88%. Patient qualifies for sleep disorder device. Respiratory getting this set up. - Continue incentive spirometer (4) Hypothyroidism: Qualifiers: Hypothyroidism type: acquired Qualified Code(s): E03.9 - Hypothyroidism, unspecified Code(s): E03.9 - Hypothyroidism, unspecified Status: Acute Assessment and Plan: Possible that patients TSH level is causing CO2 retention and respiratory muscle dysfunction - TSH 05/09 9.240 - T4 1.26 - T3 0.81 - Levothyroxine dose increased to 200 mcg Time Spent With Patient Time with patient: 25 - 35 minutes Subjective Date/time seen: 05/10/24 09:22 Interval history: 73 year old female with past medical history of DVT on anticoagulation, hypothyroidism, hypertension, depression, and prediabetes presents to the hospital for left leg pain and generalized weakness. Patient is pleasant lying in bed working with PT. Per PT note patient was unable to complete the transfer from bed to chair today due to weakness and fatigue. Concerned that patient is wanting to return home with home health and her niece who is not their 24/05. Of note prior to this admission patient was able to ambulate from bed to chair. However leading up to this admission patient was unable to lift herself from the chair lift and was stuck their for weeks. Patient had an apnea link performed last night which is concerning for sleep apnea. Respiratory is setting up a sleep device for her. Pulmonology continues to follow. Patient remains on 1L NC o2 supplementation. She continues to become short of breath and desat with movement. She denies chest pain, palpitations, cough, nausea/vomiting. Patient urine culture growing proteus mirabilis. She remains on levaquin at this time. She states since starting the antibiotic her symptoms have improved and she now denies hematuria, burning, and dysuria. Review of Systems Review of Systems: All systems reviewed & are unremarkable except as noted in HPI and below Exam Narrative: AF HR 56 RR 12 SpO2 98 1L NC BP 129/97 General: obese female in no acute respiratory distress who is nontoxic appearing, lying semi recumbent in bed. HEENT: Normocephalic. Atraumatic. Pupils equal round reactive to light. Extraocular movement intact. Sclera clear and anicteric. No facial asymmetry. Chest: Lungs are clear to auscultation bilaterally. No wheezes or crackles. CV: Heart was regular rate and rhythm. S1-S2. No murmurs, gallops, or rubs. Abd: Abdomen was soft. Nontender. Nondistended. Positive bowel sounds. No organomegaly or masses. Ext: No clubbing, cyanosis, or holly
[2024-05-10 10:36] LABS: Basophils Percent Auto 0.6 % (0.2-1.2); Eosinophils Absolute Auto 0.2 K/mm3 (0-0.3); Eosinophils Percent Auto 3.1 % (0-4.4); Hematocrit 46.6 % (37.0-47.0); Hemoglobin 14.1 g/dL (12.0-15.0); Immature Granulocyte Absolute 0.01 K/mm3 (0.00-0.031); Immature Granulocyte Percent A 0.2 % (0-0.5); Lymphocytes Absolute Auto 0.97 K/mm3 (0.9-3.2); Lymphocytes Percent Auto 19.8 % (18.3-44.2); Mean Corpuscular HGB Conc 30.3 g/dl (32-36); Mean Corpuscular Hemoglobin 31.1 pg (26-34); Mean Corpuscular Volume 102.9 fl (80-100); Mean Platelet Volume 9.8 fl (7.4-10.4); Monocytes Absolute Auto 0.5 K/mm3 (0.1-0.6); Neutrophils Absolute Auto 3.2 K/mm3 (1.3-6.7); Neutrophils Percent Auto 65.3 % (45.5-73.1); Platelet Count Result 168 k/mm3 (150-375); Red Blood Count 4.53 M/mm3 (4.2-5.4); Red Cell Distribution Width 14.2 % (11.5-14.5); White Blood Count 4.9 K/mm3 (4.5-10.0)
[2024-05-10 11:02] LABS: Alanine Aminotransferase 12 U/L (6-35); Albumin Level 3.5 g/dL (3.5-5.1); Alkaline Phosphatase 52 U/L (38-126); Aspartate Amino Transferase 18 U/L (14-36); Bilirubin,Total 0.6 mg/dL (0.2-1.3); Blood Urea Nitrogen 20 mg/dL (7-17); Calcium 8.8 mg/dL (8.4-10.2); Carbon Dioxide > 40 mmol/L (22-30); Chloride 98 mmol/L (98-107); Estimated CRCL calculation 70 ml/min; Estimated Glomerular Filt Rate 49; Glucose 112 mg/dL (65-110); Potassium 3.4 mmol/L (3.4-5.0); Sodium 143 mmol/L (137-145)
--- NOTE | 2024-05-10 13:12 | PM.PNPUL ---
Progress Note: A&P Assessment and Plan (1) Obesity hypoventilation syndrome: Code(s): E66.2 - Morbid (severe) obesity with alveolar hypoventilation Status: Acute Assessment and Plan: Probable diagnosis; ABG on 1 L reflects chronic respiratory acidosis and more acute metabolic alkalosis. She has not had sleep testing. She will probably never be able to have actual sleep testing because she is too immobile to get into the sleep lab. We will try to qualify her for an NPPV in order to get her diagnosed and treated prior to leaving [facility]. (2) Hypoxemia: Code(s): R09.02 - Hypoxemia Status: Acute Assessment and Plan: She has required oxygen 1 L currently, was higher a few days ago. Has not had O2 at home prior to admission. Prior smoker; large body; her hypoxemia is a combination of atelectasis, immobility, poor pulmonary hygiene, restrictive impairment due to massive obesity, and possibly some obstructive lung disease due to smoking. Continue to wean the oxygen as tolerated. She is immobile, cannot perform a Home Oxygen Study walk before going to [facility]. (3) Atelectasis: Code(s): J98.11 - Atelectasis Status: Acute Assessment and Plan: Seen on CXR 05/06/24; Left medial lung base shows atelectasis. The remainder of the chest x-ray does not appear to show pneumonia and she does not have pneumonia symptoms. She had Rocephin IV and then was placed on Levaquin for concerns about pneumonia. She does not have purulence sputum, fever or elevated white blood cell count. Her chest x-ray appears to show pulmonary vascular redistribution. (4) Metabolic alkalosis with respiratory acidosis: Code(s): E87.4 - Mixed disorder of acid-base balance Status: Acute Assessment and Plan: Respiratory acidosis probably chronic with acute and chronic metabolic alkalosis. She has compensated pH so this is not an urgent issue. This is the first ABG she has had since Nov 2022 when she had mild respiratory acidosis. ABG 05/09/24 showing pH 7.38, pCO2 60.7, pO2 61.4 on 1 L/min, HCO3 35.7, saturation 90.6. (5) Hypothyroidism, unspecified: Code(s): E03.9 - Hypothyroidism, unspecified Status: Acute Assessment and Plan: TSH is 9.24, moderately elevated with normal free T4 and low T3, nonspecific pattern but definitely consistent with hypothyroidism. Hypothyroidism can worsen hypercarbic respiratory failure and promote respiratory muscle dysfunction. See below. I will defer management of thyroid issues to hospitalist team. She does not see endocrine as out-patient. Plan continue Cornet valve to improve atelectasis and clear secretions with ipratropium solution. This may improve oxygenation. Non-invasive positive pressure device is being investigated. She is on oral thyroid replacement. Has moderately high TSH 9.24, low T3 and normal free T4. Not a typical pattern; hypothyroidism can worsen hypercapnia. Subjective Date/time seen: 05/10/24 13:12 Interval history: 05/10/2024: Feeling better, Cornet valve helped with clearing secretions. Feeling a bit better. WBC 4, not elevated. Electrolytes are in the normal range. O2 requirement is 1 L/min, saturation 94-100%. She had ApneaLink last night, showing on 2 L/minute AHI 6.6, PEPE 10.2, 22 minutes with SpO2 < 88%. She is interested in having a non-invasive positive pressure device at home. I talked with her about the advantage as she can use with sleep and in the day when she is short of breath. I completed request for standard settings based on her ideal body weight. She is immobile,
[2024-05-10] MEDS: levoFLOXacin 750 MG TABLET PO (17:26)
[2024-05-10] MEDS: ACETAMINOPHEN 325 MG TABLET 650 MG PO ×2 (17:26→20:52)
[2024-05-10] MEDS: RIVAROXABAN 20 MG TABLET PO (20:51)
[2024-05-10] MEDS: SIMVASTATIN 20 MG TABLET PO (20:51)
[2024-05-11] VITALS (9 sets, daily range): BP systolic 107–122; BP diastolic 58–76; PULSE 55–110; RESP 18–22; TEMP 35.8–36.4; O2SAT 93–99
[2024-05-11 05:51] LABS: Basophils Percent Auto 0.8 % (0.2-1.2); Eosinophils Absolute Auto 0.2 K/mm3 (0-0.3); Eosinophils Percent Auto 3.1 % (0-4.4); Hematocrit 43.8 % (37.0-47.0); Hemoglobin 13.3 g/dL (12.0-15.0); Immature Granulocyte Absolute 0.02 K/mm3 (0.00-0.031); Immature Granulocyte Percent A 0.4 % (0-0.5); Lymphocytes Absolute Auto 1.43 K/mm3 (0.9-3.2); Lymphocytes Percent Auto 27.9 % (18.3-44.2); Mean Corpuscular HGB Conc 30.4 g/dl (32-36); Mean Corpuscular Hemoglobin 31.2 pg (26-34); Mean Corpuscular Volume 102.8 fl (80-100); Mean Platelet Volume 10.1 fl (7.4-10.4); Monocytes Absolute Auto 0.6 K/mm3 (0.1-0.6); Monocytes Percent Auto 10.9 % (2.6-8.5); Neutrophils Absolute Auto 2.9 K/mm3 (1.3-6.7); Neutrophils Percent Auto 56.9 % (45.5-73.1); Platelet Count Result 164 k/mm3 (150-375); Red Blood Count 4.26 M/mm3 (4.2-5.4); Red Cell Distribution Width 14.2 % (11.5-14.5); White Blood Count 5.1 K/mm3 (4.5-10.0)
[2024-05-11 06:05] LABS: Alanine Aminotransferase 11 U/L (6-35); Albumin Level 3.1 g/dL (3.5-5.1); Alkaline Phosphatase 54 U/L (38-126); Anion Gap 6 mmol/L (4-12); Aspartate Amino Transferase 17 U/L (14-36); Bilirubin,Total 0.6 mg/dL (0.2-1.3); Blood Urea Nitrogen 21 mg/dL (7-17); Calcium 8.6 mg/dL (8.4-10.2); Carbon Dioxide 36 mmol/L (22-30); Chloride 98 mmol/L (98-107); Estimated CRCL calculation 64 ml/min; Estimated Glomerular Filt Rate 44; Glucose 95 mg/dL (65-110); Potassium 2.9 mmol/L (3.4-5.0); Sodium 140 mmol/L (137-145)
[2024-05-11] MEDS: LEVOTHYROXINE SODIUM 100 MCG TABLET PO (06:29)
[2024-05-11] MEDS: LEVOTHYROXINE SODIUM 88 MCG TABLET PO (06:29)
[2024-05-11] MEDS: ALBUTEROL SULFATE (*SP) AEROSOL 1 PUFF 2 PUFF INHALATION ×2 (07:30→20:37)
--- NOTE | 2024-05-11 08:30 | PM.IMPN ---
Progress Note: A&P Assessment and Plan (1) Generalized weakness: Code(s): R53.1 - Weakness Status: Acute Assessment and Plan: Prior to this admission patient was able to ambulate from bed to chair. However leading up to this admission patient was unable to lift herself from the chair lift and was stuck there for at least a week. Weakness likely related to deconditioning and underlying infection. - PT/OT Patient unable to transfer from bed to chair - Care coordination following for possible SNF placement Patient will require placement at time of discharge as she is unsafe to return home (2) Recurrent UTI: Code(s): N39.0 - Urinary tract infection, site not specified Status: Acute Assessment and Plan: - UA: light red color with turbid appearance, 3+ protein, 3+ blood, positive nitrates, 1+ bili, 3+ leukocytes, > 100 RBC, > 100 WBC, triple phos cystrals present - UC obtained on 05/03: proteus mirabilis with resistance to bactrim and macrobid - previous micro reviewed 11/22/22: ecoli pansensitive - started on levaquin 05/08 (3) Atelectasis: Code(s): J98.11 - Atelectasis Status: Acute Assessment and Plan: - Chest XR 05/06: Segmental left medial left basilar atelectasis/consolidation - Pulmonology consulted Cornet valve added with ipratropium solutions Continue diuresis Acetazolamide - ApneaLink 2 L NC: AHI 6.6, PEPE 10.2, 22 minutes with SpO2 < 88%. Patient qualifies for sleep disorder device. Respiratory getting this set up. - Continue incentive spirometer (4) Hypothyroidism: Qualifiers: Hypothyroidism type: acquired Qualified Code(s): E03.9 - Hypothyroidism, unspecified Code(s): E03.9 - Hypothyroidism, unspecified Status: Acute Assessment and Plan: Possible that patients TSH level is causing CO2 retention and respiratory muscle dysfunction - TSH 05/09 9.240 - T4 1.26 - T3 0.81 - Levothyroxine dose increased to 200 mcg Time Spent With Patient Time with patient: 25 - 35 minutes Subjective Date/time seen: 05/11/24 08:30 Interval history: 73 year old female with past medical history of DVT on anticoagulation, hypothyroidism, hypertension, depression, and prediabetes presents to the hospital for left leg pain and generalized weakness. Patient is pleasant lying comfortably in bed. She continues to endorse mild shortness of breath on the supplemental O2. She denies chest pain, palpitations, nausea/vomiting, and changes in bowel/bladder. She states that since receiving the antibiotics she has not had any buring or dysuria. Discussed in depth my concerns about patient returning home at discharge. Prior to admission patient was noted to be left in chair by home care giver for at least a week and was found by EMS covered in urine and feces. Patient states understanding and care coordination is following for potential placement. Review of Systems Review of Systems: All systems reviewed & are unremarkable except as noted in HPI and below Exam Narrative: AF HR 61 RR 18 SpO2 95 1LNC BP 122/76 General: obese female in no acute respiratory distress who is nontoxic appearing, lying semi recumbent in bed. Chest: Lungs are clear to auscultation bilaterally. No wheezes or crackles. CV: Heart was regular rate and rhythm. S1-S2. No murmurs, gallops, or rubs. Abd: Abdomen was soft. Nontender. Nondistended. Positive bowel sounds. No organomegaly or masses. Ext: No clubbing, cyanosis, or edema. 2+ DP pulses bilaterally. Neuro: Patient is alert and oriented x4. Cranial nerves 2-12 are intact. Speech is clear. Skin: Warm and dry. No rashes noted. Objective Data Vital Signs Vital Signs: Vital Signs - 24 hr 05/10/24 08:39 05/10/24 08:42 05/10/24 14:00 Temperature 96.7 F L Pulse Rate 60 56 L Respiratory Rate 12 Blood Pressure 104/57 L 129/97 H Pulse Oximetry 100 100 98 Oxygen Delivery Nasal Cannula Oxygen Flow Rate 1 05/10/24 20:
[2024-05-11] MEDS: FUROSEMIDE INJ 40 MG/4 ML VIAL IV PUSH ×2 (08:47→16:53)
[2024-05-11] MEDS: ESCITALOPRAM OXALATE 10 MG TABLET 20 MG PO (08:47)
[2024-05-11] MEDS: MAGNESIUM OXIDE 200 MG TABLET PO ×2 (08:47→21:19)
[2024-05-11] MEDS: FERROUS SULFATE DRIED 142 MG TABCR PO (08:47)
[2024-05-11] MEDS: PANTOPRAZOLE 40 MG TABLET PO ×2 (08:47→21:19)
[2024-05-11] MEDS: SACCHAROMYCES BOULARDII 250 MG CAPSULE PO ×3 (08:47→16:53)
[2024-05-11] MEDS: POTASSIUM CHLORIDE INJ 40 MEQ in SODIUM CHLORIDE 0.9% IV 500 ML 130 MEQ IVPB (08:48)
[2024-05-11] MEDS: POTASSIUM CHLORIDE 20 MEQ ER TABLET 40 MEQ PO (08:50)
[2024-05-11] MEDS: TOLNAFTATE 1% POWDER 45 GM BTL 1 APPLIC TOPICAL ×2 (08:53→21:20)
[2024-05-11] MEDS: FLUTICASONE PROPIONATE 0.05% NA SPR 16 GM BTL (*BKC) 1 SPRAY NASAL ×2 (08:54→21:19)
[2024-05-11] MEDS: ACETAMINOPHEN 325 MG TABLET 650 MG PO ×3 (09:03→21:23)
[2024-05-11] MEDS: levoFLOXacin 750 MG TABLET PO (16:53)
[2024-05-11] MEDS: RIVAROXABAN 20 MG TABLET PO (21:19)
[2024-05-11] MEDS: SIMVASTATIN 20 MG TABLET PO (21:19)
[2024-05-12 05:58] LABS: Basophils Absolute Auto 0.1 K/mm3 (0.0-0.1); Basophils Percent Auto 1.1 % (0.2-1.2); Eosinophils Absolute Auto 0.2 K/mm3 (0-0.3); Eosinophils Percent Auto 3.8 % (0-4.4); Hematocrit 44.3 % (37.0-47.0); Hemoglobin 13.6 g/dL (12.0-15.0); Immature Granulocyte Absolute 0.01 K/mm3 (0.00-0.031); Immature Granulocyte Percent A 0.2 % (0-0.5); Lymphocytes Absolute Auto 1.23 K/mm3 (0.9-3.2); Lymphocytes Percent Auto 26.2 % (18.3-44.2); Mean Corpuscular HGB Conc 30.7 g/dl (32-36); Mean Corpuscular Hemoglobin 31.3 pg (26-34); Mean Corpuscular Volume 102.1 fl (80-100); Mean Platelet Volume 9.9 fl (7.4-10.4); Monocytes Absolute Auto 0.5 K/mm3 (0.1-0.6); Monocytes Percent Auto 11.5 % (2.6-8.5); Neutrophils Absolute Auto 2.7 K/mm3 (1.3-6.7); Neutrophils Percent Auto 57.2 % (45.5-73.1); Platelet Count Result 167 k/mm3 (150-375); Red Blood Count 4.34 M/mm3 (4.2-5.4); Red Cell Distribution Width 14.2 % (11.5-14.5); White Blood Count 4.7 K/mm3 (4.5-10.0)
[2024-05-12] MEDS: LEVOTHYROXINE SODIUM 88 MCG TABLET PO (06:03)
[2024-05-12] MEDS: LEVOTHYROXINE SODIUM 100 MCG TABLET PO (06:03)
[2024-05-12 06:12] LABS: Alanine Aminotransferase 10 U/L (6-35); Albumin Level 3.1 g/dL (3.5-5.1); Alkaline Phosphatase 53 U/L (38-126); Anion Gap 5 mmol/L (4-12); Aspartate Amino Transferase 16 U/L (14-36); Bilirubin,Total 0.6 mg/dL (0.2-1.3); Blood Urea Nitrogen 19 mg/dL (7-17); Calcium 8.5 mg/dL (8.4-10.2); Carbon Dioxide 37 mmol/L (22-30); Chloride 99 mmol/L (98-107); Estimated CRCL calculation 70 ml/min; Estimated Glomerular Filt Rate 49; Glucose 98 mg/dL (65-110); Potassium 3.4 mmol/L (3.4-5.0); Sodium 141 mmol/L (137-145)
[2024-05-12 06:25] VITALS: BP 151/56; PULSE 67; RESP 18; TEMP 36.4; O2SAT 95
[2024-05-12 06:58] VITALS: PULSE 81; RESP 18; O2SAT 95
[2024-05-12] MEDS: ALBUTEROL SULFATE (*SP) AEROSOL 1 PUFF 2 PUFF INHALATION (06:58)
--- NOTE | 2024-05-12 08:40 | PM.IMPN ---
Progress Note: A&P Assessment and Plan (1) Generalized weakness: Code(s): R53.1 - Weakness Status: Acute Assessment and Plan: Prior to this admission patient was able to ambulate from bed to chair. However leading up to this admission patient was unable to lift herself from the chair lift and was stuck there for at least a week. Weakness likely related to deconditioning and underlying infection. - PT/OT Patient unable to transfer from bed to chair - Care coordination following for possible SNF placement Patient will require placement at time of discharge as she is unsafe to return home (2) Recurrent UTI: Code(s): N39.0 - Urinary tract infection, site not specified Status: Acute Assessment and Plan: - UA: light red color with turbid appearance, 3+ protein, 3+ blood, positive nitrates, 1+ bili, 3+ leukocytes, > 100 RBC, > 100 WBC, triple phos cystrals present - UC obtained on 05/03: proteus mirabilis with resistance to bactrim and macrobid - previous micro reviewed 11/22/22: ecoli pansensitive - started on levaquin 05/08 (3) Atelectasis: Code(s): J98.11 - Atelectasis Status: Acute Assessment and Plan: - Chest XR 05/06: Segmental left medial left basilar atelectasis/consolidation - Pulmonology consulted Cornet valve added with ipratropium solutions Continue diuresis Acetazolamide - ApneaLink 2 L NC: AHI 6.6, PEPE 10.2, 22 minutes with SpO2 < 88%. Patient qualifies for sleep disorder device. Respiratory getting this set up. - Continue incentive spirometer (4) Hypothyroidism: Qualifiers: Hypothyroidism type: acquired Qualified Code(s): E03.9 - Hypothyroidism, unspecified Code(s): E03.9 - Hypothyroidism, unspecified Status: Acute Assessment and Plan: Possible that patients TSH level is causing CO2 retention and respiratory muscle dysfunction - TSH 05/09 9.240 - T4 1.26 - T3 0.81 - Levothyroxine dose increased to 200 mcg Subjective Date/time seen: 05/12/24 08:40 Interval history: 73 year old female with past medical history of DVT on anticoagulation, hypothyroidism, hypertension, depression, and prediabetes presents to the hospital for left leg pain and generalized weakness. Review of Systems Review of Systems: All systems reviewed & are unremarkable except as noted in HPI and below Exam Narrative: AF HR General: obese female in no acute respiratory distress who is nontoxic appearing, lying semi recumbent in bed. Chest: Lungs are clear to auscultation bilaterally. No wheezes or crackles. CV: Heart was regular rate and rhythm. S1-S2. No murmurs, gallops, or rubs. Abd: Abdomen was soft. Nontender. Nondistended. Positive bowel sounds. No organomegaly or masses. Ext: No clubbing, cyanosis, or edema. 2+ DP pulses bilaterally. Neuro: Patient is alert and oriented x4. Cranial nerves 2-12 are intact. Speech is clear. Skin: Warm and dry. No rashes noted. Objective Data Vital Signs Vital Signs: Vital Signs - 24 hr 05/11/24 14:00 05/11/24 15:12 05/11/24 20:39 Temperature 96.7 F L Pulse Rate 55 L 70 Respiratory Rate 20 18 Blood Pressure 114/58 L Pulse Oximetry 99 Oxygen Delivery Oxygen Flow Rate Fraction of Inspired Oxygen 05/11/24 20:41 05/11/24 21:30 05/11/24 21:15 Temperature 96.5 F L Pulse Rate 70 110 H Respiratory Rate 18 18 20 Blood Pressure 107/69 Pulse Oximetry 94 94 93 Oxygen Delivery Nasal Cannula Nasal Cannula Oxygen Flow Rate 1 1 Fraction of Inspired Oxygen 05/12/24 06:58 05/12/24 06:58 05/12/24 06:25 Temperature 97.5 F L Pulse Rate 81 81 67 Respiratory Rate 18 18 18 Blood Pressure 151/56 H Pulse Oximetry 95 95 Oxygen Delivery Nasal Cannula Oxygen Flow Rate 1 Fraction of Inspired Oxygen Intake/Output Intake/Output: Intake & Output 05/09/24 05/10/24 05/11/24 05/12/24 23:59 23:59 23:59 23:59 Intake Total 1767 1160 1020 810 Balance 1767
[2024-05-12 08:55] VITALS: O2SAT 96
[2024-05-12] MEDS: ESCITALOPRAM OXALATE 10 MG TABLET 20 MG PO (08:57)
[2024-05-12] MEDS: SACCHAROMYCES BOULARDII 250 MG CAPSULE PO ×2 (08:57→13:07)
[2024-05-12] MEDS: FERROUS SULFATE DRIED 142 MG TABCR PO (08:57)
[2024-05-12] MEDS: MAGNESIUM OXIDE 200 MG TABLET PO (08:57)
[2024-05-12] MEDS: PANTOPRAZOLE 40 MG TABLET PO (08:57)
[2024-05-12] MEDS: FLUTICASONE PROPIONATE 0.05% NA SPR 16 GM BTL (*BKC) 1 SPRAY NASAL (08:58)
[2024-05-12] MEDS: TOLNAFTATE 1% POWDER 45 GM BTL 1 APPLIC TOPICAL (08:58)
[2024-05-12] MEDS: ACETAMINOPHEN 325 MG TABLET 650 MG PO (08:59)
[2024-05-12] MEDS: POTASSIUM CHLORIDE 20 MEQ ER TABLET 40 MEQ PO (09:00)
[2024-05-12] MEDS: FUROSEMIDE INJ 40 MG/4 ML VIAL IV PUSH (09:01)
[2024-05-12 13:54] VITALS: BP 106/40; PULSE 62; RESP 12; TEMP 36.2; O2SAT 95
--- NOTE | 2024-05-12 14:34 | PM.PNPUL ---
Progress Note: A&P Assessment and Plan (1) Obesity hypoventilation syndrome: Code(s): E66.2 - Morbid (severe) obesity with alveolar hypoventilation Status: Acute Assessment and Plan: Probable diagnosis; ABG on 1 L reflects chronic respiratory acidosis and more acute metabolic alkalosis. She has not had sleep testing. She will probably never be able to have actual sleep testing because she is too immobile to get into the sleep lab. We will try to qualify her for an NPPV in order to get her diagnosed and treated prior to leaving [facility]. (2) Hypoxemia: Code(s): R09.02 - Hypoxemia Status: Acute Assessment and Plan: She has required oxygen 1 L currently, was higher a few days ago. Has not had O2 at home prior to admission. Prior smoker; large body; her hypoxemia is a combination of atelectasis, immobility, poor pulmonary hygiene, restrictive impairment due to massive obesity, and possibly some obstructive lung disease due to smoking. Continue to wean the oxygen as tolerated. She is immobile, cannot perform a Home Oxygen Study walk before going to [facility]. (3) Atelectasis: Code(s): J98.11 - Atelectasis Status: Acute Assessment and Plan: Seen on CXR 05/06/24; Left medial lung base shows atelectasis. The remainder of the chest x-ray does not appear to show pneumonia and she does not have pneumonia symptoms. She had Rocephin IV and then was placed on Levaquin for concerns about pneumonia. She does not have purulence sputum, fever or elevated white blood cell count. Her chest x-ray appears to show pulmonary vascular redistribution. (4) Metabolic alkalosis with respiratory acidosis: Code(s): E87.4 - Mixed disorder of acid-base balance Status: Acute Assessment and Plan: Respiratory acidosis probably chronic with acute and chronic metabolic alkalosis. She has compensated pH so this is not an urgent issue. This is the first ABG she has had since Nov 2022 when she had mild respiratory acidosis. ABG 05/09/24 showing pH 7.38, pCO2 60.7, pO2 61.4 on 1 L/min, HCO3 35.7, saturation 90.6. Plan 1. Continue Cornet valve to improve atelectasis and clear secretions with ipratropium solution, may improve oxygenation. She can take with her to Rehab and then home. 2. Non-invasive positive pressure device is not being pursued. The patient asked about the out of pocket cost. There is probably going to be some co-pay for her to have this in the home. She is financially stretched, cannot add any additional costs. She wants to return to her home after going to [facility] for Rehab. 3. She is on oral thyroid replacement. Has moderately high TSH 9.24, low T3 and normal free T4. Not a typical pattern; hypothyroidism can worsen hypercapnia. When her TSH is lower, she may be able to ventilate better. 4. O2: this is a new O2 prescription for her. She has not been on it as an out-patient. She is on 1 L/min now, sat is 95-100%. She can use 1 L in the day to keep sat 90-94%; 2 L/min with sleep. The ApneaLink 05/09/24 shows that she had an AHI of 6.6 with 22 minutes below 88%, has improved since then, diuresed. She needs PAP however we have not plans to set it up due to costs. She needs at minimum 2 L/min to normalize saturation with sleep. 5. Follow up : we are not planning to see her in the office due to problems with transportation. She is about 350 lb, cannot easily fit in the body box to perform PFTs. She has our office number, can call if she wants to make an appt. 6. Bronchodilators; I am agnostic. Try and see how she feels. She is on regular bronchosiltors now. Subjective Date/time seen: 05/12/24 14:34 I
--- NOTE | 2024-05-12 16:02 | PM.DS ---
DS: Admitting Diagnosis Discharge Date 05/12/24 Admitting Diagnosis Generalized weakness Recurrent UTI Atelectasis Obesity hypoventilation syndrome Hypothyroidism DS: Discharge Diagnosis Discharge Diagnosis (1) Obesity hypoventilation syndrome: Code(s): E66.2 - Morbid (severe) obesity with alveolar hypoventilation Status: Acute (2) Atelectasis: Code(s): J98.11 - Atelectasis Status: Acute (3) Generalized weakness: Code(s): R53.1 - Weakness Status: Acute (4) Recurrent UTI: Code(s): N39.0 - Urinary tract infection, site not specified Status: Acute (5) Hypothyroidism: Qualifiers: Hypothyroidism type: acquired Qualified Code(s): E03.9 - Hypothyroidism, unspecified Code(s): E03.9 - Hypothyroidism, unspecified Status: Acute DS: Summary Hospital Course Reason for hospitalization: Generalized weakness Recurrent UTI Atelectasis Obesity hypoventilation syndrome Hypothyroidism Hospital Course: 73 year old female with past medical history of DVT on anticoagulation, hypothyroidism, hypertension, depression, and prediabetes presents to the hospital for left leg pain and generalized weakness. Prior to this admission patient was able to ambulate from bed to chair. Patient was left in chair by administrator health care facility for at least a week and was found by EMS covered in urine and feces. A femur xr was obtained and showed no definite fracture or dislocation. Weakness likely related to deconditioning, worsening oxygen status and underlying infection. On admission patient was noted to have a UTI with a urine culture that grew proteus mirabilis with resistance to bactrim and macrobid. She was started on and completed her course of Levaquin in the hospital. A chest XR was obtained and showed segmental left medial left basilar atelectasis/consolidation. Patient noted to become hypoxic with small movements in the bed requiring oxygen supplementation. Patient not on any O2 baseline. Pulmonology was consulted and states this is likely obesity hypoventilation syndrome. An ABG was obtained and showed chronic respiratory acidosis and more acute metabolic alkalosis. Patient to continue cornet valve and ipratropium solution. Pulmonology wanted patient to start a non invasive positive pressure device, however this would be out of pocket and she is unable to do this. She is on 1 L/min now, sat is 95-100%. She can use 1 L in the day to keep sat 90-94%; 2 L/min with sleep. The ApneaLink 05/09/24 shows that she had an AHI of 6.6 with 22 minutes below 88%, has improved since then, diuresed. She needs at minimum 2 L/min to normalize saturation with sleep. Patient noted to have an elevated TSH level which could be causing hypercarbic respiratory failure and promote respiratory muscle dysfunction. Increased patients levothyroxine. Prior to discharge patient remains on 1L NC. She denies chest pain, shortness of breath, nausea/vomiting and changes in bowel/bladder. Patient discharged to [facility] in stable condition. Status at Discharge Functional status at discharge: bed bound Time Spent with Patient Time attestation: Total time spent providing and/or coordinating discharge services: Time spent: Greater than 30 minutes Exam Narrative: AF HR 62 RR 12 SpO2 95 1L NC BP 106/40 General: obese female in no acute respiratory distress who is nontoxic appearing, lying semi recumbent in bed. Chest: Lungs are clear to auscultation bilaterally. No wheezes or crackles. CV: Heart was regular rate and rhythm. S1-S2. No murmurs, gallops, or rubs. Abd: Abdomen was soft. Nontender. Nondistended. Positive bowel sounds. No organomegaly or masses. Ext: No clubbing, cyanosis, or edema. 2+ DP pulses bilaterally. Neuro: Patient is alert and oriented x4. Cranial nerves 2-12 are intact. Speech is clear. Skin: Warm and dry. No rashes noted. DS: Data Data Completed and Pending Completed studies during hospitalizatio
== END 2024-05-12 16:50 | DRG 690 ==
LOC: ANHED 09:27 → ANH3MEDSUR 09:51
PROVIDERS: Internal Medicine Critical Care Medicine; Nurse Practitioner; Admitting Provider Internal Medicine; Emergency Provider Student in an Organized Health Care Education/Training Program; PCP Family Medicine; Visit Provider Student in an Organized Health Care Education/Training Program
DX: N39.0 Urinary tract infection, site not specified (principal); E66.2 Morbid (severe) obesity with alveolar hypoventilation; Z68.44 Body mass index [BMI] 60.0-69.9, adult; J98.11 Atelectasis; Z16.29 Resistance to other single specified antibiotic; R09.02 Hypoxemia; B96.4 Proteus (mirabilis) (morganii) as the cause of diseases classified elsewhere; E03.9 Hypothyroidism, unspecified; I10 Essential (primary) hypertension; K21.9 Gastro-esophageal reflux disease without esophagitis; R73.03 Prediabetes; F32.A Depression, unspecified; M19.90 Unspecified osteoarthritis, unspecified site; Z86.718 Personal history of other venous thrombosis and embolism; Z79.01 Long term (current) use of anticoagulants; Z90.710 Acquired absence of both cervix and uterus; Z98.49 Cataract extraction status, unspecified eye; Z87.891 Personal history of nicotine dependence
CPT/HCPCS: 36415; 36600; 71045; 73552; 80048; 80053; 81001; 82550; 82805; 83036; 83735; 83880; 84100; 84439; 84443; 84480; 85025; 85027; 86376; 87077; 87086; 87088; 87186; 94640; 94762; 96365; 97110; 97161; 97166; 97530; 97535; 99285; A9270; C8929; G0378; J0696; J1120; J1940; J3480; J7040; Q9957

== ENCOUNTER 2024-06-23 02:50 | Inpatient (IN) | payer MEDICARE, SELFPAY ==
[2024-06-23] VITALS (28 sets, daily range): BP systolic 109–136; BP diastolic 53–107; PULSE 61–93; RESP 13–20; TEMP 36.5–36.9; O2SAT 94–100; BMI 72.9; BMI 70.7
--- NOTE | ~2024-06-23 | US_ITS ---
EXAMINATION: US renal BI DATE: 06/23/2024 12:48 INDICATION: Hematuria TECHNIQUE: Multiple ultrasound grayscale images of the kidneys were obtained. COMPARISON: None. FINDINGS: The right kidney measures 12.0 x 6.0 x 5.8 cm. The left kidney measures 8.3 x 5.1 x 4.6 with mild cor tical atrophy relative to the right kidney The kidneys demonstrate normal echogenicity. There is no h ydronephrosis in either kidney. No stones identified. The bladder is normal. IMPRESSION: 1. Mild left renal atrophy. Otherwise normal kidneys with no hydronephrosis. Reviewed, dictated and finalized at location A.
--- NOTE | ~2024-06-23 | XR_ITS ---
EXAMINATION: XR abdomen/kub 1V DATE: 06/23/2024 14:18 INDICATION: Abdominal pain. TECHNIQUE: A supine view of the abdomen on 2 radiographs was obtained. COMPARISON: CT abdomen and pelvis 06/27/2011 FINDINGS: There are no dilated loops of bowel. There is a small volume of stool in the colon. A 17 mm density overlies right kidney. IMPRESSION: 1. Normal bowel gas pattern. 2. 17 mm density overlying right kidney, which may be a stone. Reviewed, dictated and finalized at location A.
--- NOTE | ~2024-06-23 | XR_ITS ---
EXAMINATION: XR chest 1V portable DATE: 06/23/2024 04:40 INDICATION: Hypoxia. TECHNIQUE: A single frontal view of the chest was obtained. COMPARISON: Chest single view 05/06/24 FINDINGS: There is mild atelectasis in the lower lung zones. No pleural effusion or pneumothorax. The heart size is normal. There is a moderate-sized hiatal hernia. IMPRESSION: 1. Mild atelectasis in the lower lung zones. 2. Moderate-sized hiatal hernia. Reviewed, dictated and finalized at location A.
[2024-06-23] MEDS: MORPHINE SULFATE (*CRX) 2 MG/ML INJ IV PUSH (04:00)
[2024-06-23] MEDS: SODIUM CHLORIDE 0.9% IV 1,000 ML 999 ML IV CONT (04:00)
[2024-06-23] MEDS: ONDANSETRON INJ 4 MG/2 ML VIAL IV PUSH (04:00)
[2024-06-23 04:55] LABS: Basophils Percent Auto 0.5 % (0.2-1.2); Eosinophils Absolute Auto 0.2 K/mm3 (0-0.3); Eosinophils Percent Auto 2.7 % (0-4.4); Hematocrit 44.8 % (37.0-47.0); Hemoglobin 13.6 g/dL (12.0-15.0); Immature Granulocyte Absolute 0.02 K/mm3 (0.00-0.031); Immature Granulocyte Percent A 0.3 % (0-0.5); Lymphocytes Absolute Auto 1.51 K/mm3 (0.9-3.2); Lymphocytes Percent Auto 24.3 % (18.3-44.2); Mean Corpuscular HGB Conc 30.4 g/dl (32-36); Mean Corpuscular Hemoglobin 31.1 pg (26-34); Mean Corpuscular Volume 102.3 fl (80-100); Mean Platelet Volume 10.4 fl (7.4-10.4); Monocytes Absolute Auto 0.6 K/mm3 (0.1-0.6); Neutrophils Absolute Auto 3.9 K/mm3 (1.3-6.7); Neutrophils Percent Auto 63.2 % (45.5-73.1); Platelet Count Result 197 k/mm3 (150-375); Red Blood Count 4.38 M/mm3 (4.2-5.4); Red Cell Distribution Width 14.4 % (11.5-14.5); White Blood Count 6.2 K/mm3 (4.5-10.0)
[2024-06-23 04:58] LABS: Bacteria Urine None Seen /hpf; Calcium Oxalate Crystals Urine Present /hpf; Mucus Urine Present /lpf; Need Manual Microscopic Reviewed; Non Pathogenic Casts 0-2; RBC Urine >100 /hpf (0-2); Squamous Epithelial Cell Urine None Seen /hpf (Few)
[2024-06-23 05:00] LABS: Add Urine Microscopic? YES; Appearance Urine Cloudy (Clear); Color Urine Yellow (Yellow); Specific Grav Ur 1.025 (1.001-1.035); pH Urine 6.5 (5.0-9.0)
[2024-06-23 05:01] LABS: Bilirubin Urine 2+ (Negative); Blood Urine 3+ (Negative); Glucose Urine UA Trace mg/dL (Negative); Ketones Urine Trace mg/dL (Negative); Leukocyte Esterase Ur Negative LEU/UL (Negative); Nitrate Urine Negative (Negative); Protein Urine 2+ mg/dL (Negative)
[2024-06-23 05:09] LABS: Alanine Aminotransferase 13 U/L (6-35); Albumin Level 3.4 g/dL (3.5-5.1); Alkaline Phosphatase 67 U/L (38-126); Aspartate Amino Transferase 26 U/L (14-36); Bilirubin,Total 0.6 mg/dL (0.2-1.3); Blood Urea Nitrogen 21 mg/dL (7-17); Calcium 8.7 mg/dL (8.4-10.2); Carbon Dioxide > 40 mmol/L (22-30); Chloride 93 mmol/L (98-107); Estimated CRCL calculation 109 ml/min; Estimated Glomerular Filt Rate > 60; Glucose 91 mg/dL (65-110); Lactic Acid Reflex 1.7 mmol/L (0.7-2.0); Lipase 68 U/L (23-300); NT Pro B Type Natriuretic Pept 269 pg/mL (19.9-100); Potassium 4.3 mmol/L (3.4-5.0); Sodium 138 mmol/L (137-145); Troponin I < 0.012 ng/mL (0.000-0.034)
--- NOTE | 2024-06-23 05:36 | PCRCNOTE ---
ABG delayed. Patient gone to CT.
[2024-06-23 05:58] LABS: Fractional Inspired Oxygen 32 %; HCO3 ABG 43.1 mEq/l (22.0-26.0); Oxygen Content ABG 16.8 %vol (16.0-22.0); PO2 ABG 56.1 mmHg (80.0-100.0); PO2 FiO2 Ratio Arterial Blood 1.75 %; Total Hemoglobin 13.7 g/dL (12.0-18.0)
[2024-06-23 06:01] LABS: PCO2 ABG 85.5 mmHg (35.0-45.0)
[2024-06-23 06:02] LABS: Device NASAL CANNULA; Modified Allen's Test Pass; Oxyhemoglobin 87.2 % THb (90.0-100.0); Site Drawn LEFT RADIAL
--- NOTE | 2024-06-23 06:11 | ED.ABDPAIN ---
HPI - Abdominal Pain General Chief Complaint: Abdominal Pain <Kavon Ross MD - Last Filed: 06/24/24 03:42> History of Present Illness HPI narrative: patient is a 73-year-old female who presents emergency department with chief complaint of abdominal pain denies hypoxia patient reports she has been having some pain in the left lower side of her abdomen and reports that she has had a prior UTI in the past patient states that today she felt short of breath and was hypoxic when EMS arrived at the facility. Patient was placed on oxygen and was transported to the emergency department. <Kavon Ross MD - Last Filed: 06/24/24 03:42> Related Data Home Medications: Home Medications Medication Instructions Recorded Confirmed albuterol sulfate 90 mcg/actuation 2 puff inhalation BID shortness of 05/03/24 06/23/24 aerosol inhaler breath or wheezing acetaminophen 160 mg/5 mL oral 640 mg PO Q4H PRN Fever > 100F 06/23/24 06/23/24 liquid ferrous sulfate 325 mg (65 mg 325 mg PO BID 06/24/24 06/24/24 iron) tablet furosemide 40 mg tablet 40 mg PO DAILY 06/24/24 06/24/24 <Kavon Ross MD - Last Filed: 06/24/24 03:42> Allergies/Adverse Reactions: Allergies Allergy/AdvReac Type Severity Reaction Status Date / Time adhesive tape Allergy Mild Rash Verified 05/03/24 08:58 nitrofurantoin Allergy Unknown Skin Verified 05/03/24 08:58 Reaction <Kavon Ross MD - Last Filed: 06/24/24 03:42> Review of Systems Review of Systems: A 10 system review of systems was completed on the patient and is negative except for what is stated in the HPI. Nursing and ancillary documentation was reviewed. <Kavon Ross MD - Last Filed: 06/24/24 03:42> [facility] Past Medical History Medical History: Medical History Chronic anticoagulation Deep venous thrombosis Depression Detached retina (12/31/14) History of venous thromboembolism Hypertension Hypothyroidism Metabolic syndrome Mixed hyperlipidemia Morbid obesity Prediabetes Small bowel obstruction (06/2011) Secondary to incarcerated incisional hernia. <Kavon Ross MD - Last Filed: 06/24/24 03:42> Surgical History Surgical History: Surgical History History of cataract extraction (2013) History of section History of incisional hernia repair (06/27/11) Incarcerated incisional hernia repair with mesh. History of total hysterectomy (2002) <Kavon Ross MD - Last Filed: 06/24/24 03:42> Family History Family History: Family History (Updated 06/23/24 @ 21:34 by Jatin Jurado RN) Father Esophageal cancer Mother Sepsis Heart disease Sibling GERD (gastroesophageal reflux disease) Other No family history of cardiovascular disease <Kavon Ross MD - Last Filed: 06/24/24 03:42> Social History Social History: Social History Social History: Caffeine-None Surrogate medical decision maker: Arnel Griffith, son. Code status: Full code. Smoking packs per day: 1 Smoking cigarettes per day: 20.0 Years smoked: 33 Smoking pack-years: 33.00 Smoking status: Former smoker Smoking end date: 05/03/96 Alcohol intake: current Drinks per week: 1 Substance use: former Substance use type: does not use Do You Feel Safe in your Home?: Yes Lack of Transportation: YES Lack of Food: Never True Current Housing: I Have Housing Concerned About Future Housing: No Difficulty Paying Gas/Electric Bills: No Difficulty Paying for Meds: No Currently Unemployed: No Education: Bachelor's Degree Difficulty w/ Childcare or Family Care: No Living arrangements: alone Additional living arrangements comm
[2024-06-23] MEDS: LORazepam INJ (*CRX) 2 MG/ML VIAL 0.5 MG IV PUSH (06:45)
[2024-06-23 09:42] LABS: Alveolar/Arterial O2 Gradient 127.4 mmHg; Base Excess ABG 8.8 mEq/l (+/-2.0); Device BIPAP; Fractional Inspired Oxygen 40 %; HCO3 ABG 34.2 mEq/l (22.0-26.0); Modified Allen's Test Pass; Oxygen Content ABG 19.4 %vol (16.0-22.0); Oxygen Saturation ABG 97.8 % (95.0-100.0); Oxyhemoglobin 97.2 % THb (90.0-100.0); PCO2 ABG 49.7 mmHg (35.0-45.0); PO2 ABG 100.6 mmHg (80.0-100.0); PO2 FiO2 Ratio Arterial Blood 2.51 %; Site Drawn RIGHT RADIAL; Total Hemoglobin 14.1 g/dL (12.0-18.0); pH ABG 7.456 (7.350-7.450)
[2024-06-23 09:43] LABS: Expiratory Pressure 8 cmH2O; Inspiratory Pressure 16 cmH2O
--- NOTE | 2024-06-23 10:10 | PC.NURSE ---
PT TAKEN OFF BIPAP PER ORDER OF DR MERCER. PLACED ON 5L O2 PNC
[2024-06-23] MEDS: cefTRIAXone 2 GM/NS 100 ML 2 GM/100 ML BAG IVPB (14:46)
--- NOTE | 2024-06-23 20:03 | PM.IMHP ---
H&P: HPI History of Present Illness Date/Time: 06/23/24 20:03 Chief Complaint: abdominal pain Narrative: this is a 73-year-old female with past medical history significant for morbid obesity, patient is bed ridden, was brought to the emergency room due to abdominal pain, bilateral lower extremity swelling. In emergency room patient was found to have low losses at duration placed on supplemental oxygen by nasal cannula, preliminary workup was significant for urinalysis numerous WBCs present. EXAMINATION: XR chest 1V portable DATE: 06/23/2024 04:40 INDICATION: Hypoxia. TECHNIQUE: A single frontal view of the chest was obtained. COMPARISON: Chest single view 05/06/24 FINDINGS: There is mild atelectasis in the lower lung zones. No pleural effusion or pneumothorax. The heart size is normal. There is a moderate-sized hiatal hernia. IMPRESSION: 1. Mild atelectasis in the lower lung zones. 2. Moderate-sized hiatal hernia. EXAMINATION: US renal BI DATE: 06/23/2024 12:48 INDICATION: Hematuria TECHNIQUE: Multiple ultrasound grayscale images of the kidneys were obtained. COMPARISON: None. FINDINGS: The right kidney measures 12.0 x 6.0 x 5.8 cm. The left kidney measures 8.3 x 5.1 x 4.6 with mild cortical atrophy relative to the right kidney The kidneys demonstrate normal echogenicity. There is no hydronephrosis in either kidney. No stones identified. The bladder is normal. IMPRESSION: 1. Mild left renal atrophy. Otherwise normal kidneys with no hydronephrosis. EXAMINATION: XR abdomen/kub 1V DATE: 06/23/2024 14:18 INDICATION: Abdominal pain. TECHNIQUE: A supine view of the abdomen on 2 radiographs was obtained. COMPARISON: CT abdomen and pelvis 06/27/2011 FINDINGS: There are no dilated loops of bowel. There is a small volume of stool in the colon. A 17 mm density overlies right kidney. IMPRESSION: 1. Normal bowel gas pattern. 2. 17 mm density overlying right kidney, which may be a stone. Review of Systems Review of Systems: abdominal pain, sob PMFSH Past Medical History Medical History Chronic anticoagulation Deep venous thrombosis Depression Detached retina (12/31/14) History of venous thromboembolism Hypertension Hypothyroidism Metabolic syndrome Mixed hyperlipidemia Morbid obesity Prediabetes Small bowel obstruction (06/2011) Secondary to incarcerated incisional hernia. Surgical History Surgical History History of cataract extraction (2013) History of section History of incisional hernia repair (06/27/11) Incarcerated incisional hernia repair with mesh. History of total hysterectomy (2002) Family History Family History (Updated 06/23/24 @ 21:34 by Jatin Jurado RN) Father Esophageal cancer Mother Sepsis Heart disease Sibling GERD (gastroesophageal reflux disease) Other No family history of cardiovascular disease Social History Social History Social History: Caffeine-None Surrogate medical decision maker: Arnel Griffith, son. Code status: Full code. Smoking packs per day: 1 Smoking cigarettes per day: 20.0 Years smoked: 33 Smoking pack-years: 33.00 Smoking status: Former smoker Smoking end date: 05/03/96 Alcohol intake: current Drinks per week: 1 Substance use: former Substance use type: does not use Do You Feel Safe in your Home?: Yes Lack of Transportation: YES Lack of Food: Never True Current Housing: I Have Housing Concerned About Future Housing: No Difficulty Paying Gas/Electric Bills: No Difficulty Paying for Meds: No Currently Unemployed: No Education: Bachelor's Degree Difficulty w/ Childcare or Family Care: No Living arrangements: alone Additional living arrangements comme
--- NOTE | 2024-06-23 21:00 | ADMGEN ---
This patient, Renae Griffith, was admitted to IMU Room 201-01. Patient/family oriented to hospital policies and general routines including ID bracelet, bed and alarms, visiting hours, pain management, procedures, bathroom and other care routines, personal items, smoking policy, room service/diet, and visiting hours. Information on how to activate the Rapid Response Team has been discussed. Patient/Family are encouraged to report perceived risks to care and to ask questions if they do not understand what they are told or what they should do.
[2024-06-23] MEDS: HYDROcodone/acetaminophen (*CRX) 5-325 MG TABLET 1 TAB PO (22:39)
[2024-06-24] VITALS (14 sets, daily range): BP systolic 109–141; BP diastolic 44–62; PULSE 63–80; RESP 12–20; TEMP 36.2–36.8; O2SAT 90–98
[2024-06-24] MEDS: LEVOTHYROXINE SODIUM 100 MCG TABLET PO (06:09)
[2024-06-24] MEDS: LEVOTHYROXINE SODIUM 88 MCG TABLET PO (06:09)
[2024-06-24] MEDS: ESCITALOPRAM OXALATE 10 MG TABLET 20 MG PO (09:55)
[2024-06-24] MEDS: MAGNESIUM OXIDE 200 MG TABLET PO ×2 (09:55→20:46)
--- NOTE | 2024-06-24 11:10 | PM.IMPN ---
Progress Note: A&P Assessment and Plan (1) Acute hypercapnic respiratory failure: Code(s): J96.02 - Acute respiratory failure with hypercapnia Status: Acute (2) Morbid obesity with BMI of 70 and over, adult: Code(s): E66.01 - Morbid (severe) obesity due to excess calories; Z68.45 - Body mass index [BMI] 70 or greater, adult Status: Acute (3) Acute kidney injury: Code(s): N17.9 - Acute kidney failure, unspecified Status: Acute (4) Obesity hypoventilation syndrome: Code(s): E66.2 - Morbid (severe) obesity with alveolar hypoventilation Status: Acute (5) Physical deconditioning: Code(s): R53.81 - Other malaise Status: Acute Plan This is a 73-year-old female who presents to the ED with complaint of shortness of breath and questionable abdominal pain. EMS was called. Patient was hypoxic when EMS arrived to the facility. He was placed on oxygen. Was transported to the ED. in the ED initially she complained of left lower quadrant pain and was plan to get the CT however required a bariatric scanner and hence was placed on Garza weight least. There was mild tenderness noted on the left lower quadrant. UA did show a UTI and was started on Rocephin. Added Flagyl for coverage for possible diverticulitis. X-ray KUB and ultrasound showed possible stone on right kidney without hydronephrosis. ABG was performed which showed respiratory acidosis with hypercapnia. She was placed on BiPAP. Initial ABG was 7.32/85/56/43. Repeat after BiPAP placement was 7.45/49/100/34. Upon re-evaluation by another provider in the ED see having any abdominal pain. And hence is admitted here for further treatment for her hypoxia and hypercapnia. Her chest x-ray showed mild atelectasis in the lower lung zone. Moderate size hiatal hernia. She will continue on BiPAP which was recently ordered by pulmonary team due to recent hypercapnic respiratory failure presentation. Will need BiPAP at night and p.r.n. during daytime repeat ABG with mild patellar acidosis still present. Get trilogy from home. Trilogy for obesity hypoventilation. However seems the this was noted chest at discharge. Or could not be arranged at discharge. She would need noninvasive ventilator at discharge. Will need to consult Pulmonary Will order PT OT follow urine culture DVT prophylaxis on rivaroxaban Hypertension Hyperlipidemia Hypothyroidism Recurrent UTI History of DVT on anticoagulation Prediabetes Anxiety depression Code status full code Subjective Date/time seen: 06/24/24 11:10 Interval history: Chart reviewed. Discussed with nursing staff. Does complain of flank pain/lumbar pain. She is at the waiting list for [facility] Review of Systems Review of Systems: All systems reviewed & are unremarkable except as noted in HPI and below Exam Narrative: GENERAL: Well-appearing, Obese, and in no acute distress. HEAD: Normocephalic, atraumatic. EYES: PERRLA and EOMI. ENT: Nares clear, no rhinorrhea or epistaxis. Mucous membranes moist. NECK: Supple. CHEST: Clear to auscultation. No respiratory distress. HEART: Regular rate and rhythm. No murmur heard. Normal peripheral pulses. ABDOMEN: Soft, distended pannus with tenderness is left lumbar left upper quadrant, normal active bowel sounds. EXTREMITIES: Normal range of motion. No edema. SKIN: Warm, dry, no rash. NEURO: No focal deficits. Alert and oriented x3. PSYCH: Normal mood and affect. Objective Data Vital Signs Vital Signs: Vital Signs - 24 hr 06/23/24 11:45 06/23/24 12:01 06/23/24 13:31 Temperature Pulse Rate 85 81 80 Respiratory Rate 18 16 18 Blood Pressure 136/67 126/53 L 112/75 Pulse Oximetry 96 100 98 Oxygen Delivery Oxygen Flow Rate 06/23/24 14:59 06/23/24 15:31 06/23/24 16:01 Temperature Pulse Rate 80 81 78 Respiratory Rate 19 20 16 Blood Pressure 115/60 109/69 122/69 Pulse Oximetry 97 99 100 Oxygen Delivery
[2024-06-24 11:50] LABS: Alveolar/Arterial O2 Gradient 40.8 mmHg; Base Excess ABG 8.8 mEq/l (+/-2.0); Fractional Inspired Oxygen 28 %; HCO3 ABG 37.8 mEq/l (22.0-26.0); Oxygen Content ABG 16.4 %vol (16.0-22.0); Oxygen Saturation ABG 91.4 % (95.0-100.0); Oxyhemoglobin 92.4 % THb (90.0-100.0); PO2 ABG 68.9 mmHg (80.0-100.0); PO2 FiO2 Ratio Arterial Blood 2.46 %; Total Hemoglobin 12.6 g/dL (12.0-18.0); pH ABG 7.313 (7.350-7.450)
[2024-06-24 11:51] LABS: Device NASAL CANNULA; Modified Allen's Test Pass; PCO2 ABG 76.2 mmHg (35.0-45.0); Site Drawn RIGHT RADIAL
[2024-06-24 12:40] LABS: Basophils Percent Auto 0.4 % (0.2-1.2); Eosinophils Absolute Auto 0.1 K/mm3 (0-0.3); Hematocrit 40.4 % (37.0-47.0); Hemoglobin 12.1 g/dL (12.0-15.0); Immature Granulocyte Absolute 0.02 K/mm3 (0.00-0.031); Immature Granulocyte Percent A 0.4 % (0-0.5); Lymphocytes Absolute Auto 1.19 K/mm3 (0.9-3.2); Lymphocytes Percent Auto 23.3 % (18.3-44.2); Mean Corpuscular Volume 103.6 fl (80-100); Mean Platelet Volume 10.2 fl (7.4-10.4); Monocytes Absolute Auto 0.6 K/mm3 (0.1-0.6); Monocytes Percent Auto 10.8 % (2.6-8.5); Neutrophils Absolute Auto 3.2 K/mm3 (1.3-6.7); Neutrophils Percent Auto 63.1 % (45.5-73.1); Platelet Count Result 163 k/mm3 (150-375); Red Cell Distribution Width 14.5 % (11.5-14.5); White Blood Count 5.1 K/mm3 (4.5-10.0)
[2024-06-24 12:54] LABS: Alanine Aminotransferase 11 U/L (6-35); Alkaline Phosphatase 61 U/L (38-126); Aspartate Amino Transferase 17 U/L (14-36); Bilirubin,Total 0.3 mg/dL (0.2-1.3); Blood Urea Nitrogen 20 mg/dL (7-17); Calcium 8.7 mg/dL (8.4-10.2); Carbon Dioxide > 40 mmol/L (22-30); Chloride 95 mmol/L (98-107); Estimated CRCL calculation 110 ml/min; Estimated Glomerular Filt Rate > 60; Glucose 98 mg/dL (65-110); Sodium 137 mmol/L (137-145)
[2024-06-24] MEDS: RIVAROXABAN 20 MG TABLET PO (18:05)
[2024-06-24] MEDS: POTASSIUM CHLORIDE 20 MEQ ER TABLET PO (18:05)
[2024-06-24] MEDS: FERROUS SULFATE 325 MG TABLET DR PO (18:05)
--- NOTE | 2024-06-24 18:21 | PC.NURSE ---
This patient, Renae Griffith, was received from IMU on 06/24/24 at 1821. Patient/family oriented to unit policies and routines
[2024-06-24] MEDS: HYDROcodone/acetaminophen (*CRX) 5-325 MG TABLET 1 TAB PO (20:46)
[2024-06-24] MEDS: TOLNAFTATE 1% POWDER 45 GM BTL 1 APPLIC TOPICAL (20:46)
[2024-06-24] MEDS: SIMVASTATIN 20 MG TABLET PO (20:46)
[2024-06-25] VITALS (23 sets, daily range): BP systolic 95–144; BP diastolic 54–80; PULSE 63–135; RESP 12–20; TEMP 36.2–36.8; O2SAT 92–100
--- NOTE | 2024-06-25 01:41 | ECG_ITS ---
Test Date: 2024-06-25 01:51:01 Measurements Intervals [place] Rate: 129 P: 0 MA: 0 QRS: 186 QRSD: 147 T: -60 QT: 381 QTc: 560 Interpretive Statements ATRIAL FLUTTER/TACHYCARDIA WITH RAPID VENTRICULAR RESPONSE MARKED RIGHT AXIS DEVIATION [QRS AXIS > 100] RIGHT BUNDLE BRANCH BLOCK [120+ ms QRS DURATION, UPRIGHT V1, 40+ ms S IN I/aVL/V4/V5/V6] NONSPECIFIC T-WAVE ABNORMALITY ABNORMAL ECG No previous ECG available for comparison Electronically Signed On 06-26-2024 07:26:29 CDT by Nishant Martinez M.D.
[2024-06-25] MEDS: METOPROLOL TARTRATE 25 MG TABLET PO ×2 (01:58→03:26)
--- NOTE | 2024-06-25 03:27 | PC.NURSE ---
Contacted Dr. Carver after 1st dose of metoprolol. Patient was maintaining heart rate. Dr. Carver did order another 25mg of metoprolol tartrate and to give it a few hours to work.
[2024-06-25] MEDS: LEVOTHYROXINE SODIUM 88 MCG TABLET PO (05:35)
[2024-06-25] MEDS: LEVOTHYROXINE SODIUM 100 MCG TABLET PO (05:35)
[2024-06-25 05:58] LABS: Alveolar/Arterial O2 Gradient 62.4 mmHg; Base Excess ABG 12.2 mEq/l (+/-2.0); Fractional Inspired Oxygen 30 %; HCO3 ABG 39.6 mEq/l (22.0-26.0); Methemoglobin ABG 0.2 %THb (0-1.5); Oxygen Content ABG 15.3 %vol (16.0-22.0); Oxygen Saturation ABG 94.2 % (95.0-100.0); Oxyhemoglobin 94.5 % THb (90.0-100.0); PO2 ABG 73.5 mmHg (80.0-100.0); PO2 FiO2 Ratio Arterial Blood 2.45 %; Reduced Hemoglobin 4.3 %THb (0-5.0); Total Hemoglobin 11.5 g/dL (12.0-18.0); pH ABG 7.393 (7.350-7.450)
[2024-06-25 06:00] LABS: Device NASAL CANNULA; Liters per Minute 2.5 LPM; Modified Allen's Test Pass; PCO2 ABG 66.4 mmHg (35.0-45.0); Site Drawn RIGHT RADIAL
[2024-06-25 06:00] LABS: Basophils Percent Auto 0.6 % (0.2-1.2); Eosinophils Absolute Auto 0.1 K/mm3 (0-0.3); Eosinophils Percent Auto 1.9 % (0-4.4); Hematocrit 42.3 % (37.0-47.0); Hemoglobin 12.7 g/dL (12.0-15.0); Immature Granulocyte Absolute 0.02 K/mm3 (0.00-0.031); Immature Granulocyte Percent A 0.4 % (0-0.5); Lymphocytes Absolute Auto 1.29 K/mm3 (0.9-3.2); Lymphocytes Percent Auto 24.2 % (18.3-44.2); Mean Corpuscular Hemoglobin 31.3 pg (26-34); Mean Corpuscular Volume 104.2 fl (80-100); Mean Platelet Volume 11.1 fl (7.4-10.4); Monocytes Absolute Auto 0.6 K/mm3 (0.1-0.6); Monocytes Percent Auto 10.5 % (2.6-8.5); Neutrophils Absolute Auto 3.3 K/mm3 (1.3-6.7); Neutrophils Percent Auto 62.4 % (45.5-73.1); Platelet Count Result 153 k/mm3 (150-375); Red Blood Count 4.06 M/mm3 (4.2-5.4); Red Cell Distribution Width 14.3 % (11.5-14.5); White Blood Count 5.3 K/mm3 (4.5-10.0)
[2024-06-25 06:14] LABS: Alanine Aminotransferase 9 U/L (6-35); Albumin Level 2.6 g/dL (3.5-5.1); Alkaline Phosphatase 48 U/L (38-126); Anion Gap 3 mmol/L (4-12); Aspartate Amino Transferase 21 U/L (14-36); Bilirubin,Total 0.5 mg/dL (0.2-1.3); Blood Urea Nitrogen 17 mg/dL (7-17); Calcium 8.8 mg/dL (8.4-10.2); Carbon Dioxide 36 mmol/L (22-30); Chloride 97 mmol/L (98-107); Estimated CRCL calculation 111 ml/min; Estimated Glomerular Filt Rate > 60; Glucose 91 mg/dL (65-110); Magnesium 2.1 mg/dL (1.6-2.3); Potassium 4.4 mmol/L (3.4-5.0); Sodium 136 mmol/L (137-145)
--- NOTE | 2024-06-25 08:20 | PC.NURSE ---
This patient, Renae Griffith, was received from [[id number] ] on 06/25/24 at 0735. Patient/family oriented to unit policies and routines
[2024-06-25] MEDS: dilTIAZem 100 MG/100 ML 100 MG/100 ML BAG IV CONT (09:00)
[2024-06-25] MEDS: FUROSEMIDE 40 MG TABLET PO (09:19)
[2024-06-25] MEDS: ESCITALOPRAM OXALATE 10 MG TABLET 20 MG PO (09:19)
[2024-06-25] MEDS: FERROUS SULFATE 325 MG TABLET DR PO ×2 (09:19→17:52)
[2024-06-25] MEDS: MAGNESIUM OXIDE 200 MG TABLET PO ×2 (09:20→20:57)
[2024-06-25] MEDS: POTASSIUM CHLORIDE 20 MEQ ER TABLET PO ×2 (09:20→17:52)
[2024-06-25] MEDS: TOLNAFTATE 1% POWDER 45 GM BTL 1 APPLIC TOPICAL ×2 (09:20→20:57)
--- NOTE | 2024-06-25 15:24 | PM.IMPN ---
Progress Note: A&P Assessment and Plan (1) Acute hypercapnic respiratory failure: Code(s): J96.02 - Acute respiratory failure with hypercapnia Status: Acute (2) Morbid obesity with BMI of 70 and over, adult: Code(s): E66.01 - Morbid (severe) obesity due to excess calories; Z68.45 - Body mass index [BMI] 70 or greater, adult Status: Acute (3) Acute kidney injury: Code(s): N17.9 - Acute kidney failure, unspecified Status: Acute (4) Obesity hypoventilation syndrome: Code(s): E66.2 - Morbid (severe) obesity with alveolar hypoventilation Status: Acute (5) Physical deconditioning: Code(s): R53.81 - Other malaise Status: Acute Plan This is a 73-year-old female who presents to the ED with complaint of shortness of breath and questionable abdominal pain. EMS was called. Patient was hypoxic when EMS arrived to the facility. He was placed on oxygen. Was transported to the ED. in the ED initially she complained of left lower quadrant pain and was plan to get the CT however required a bariatric scanner and hence was placed on Garza weight least. There was mild tenderness noted on the left lower quadrant. UA did show a UTI and was started on Rocephin. Added Flagyl for coverage for possible diverticulitis. X-ray KUB and ultrasound showed possible stone on right kidney without hydronephrosis. ABG was performed which showed respiratory acidosis with hypercapnia. She was placed on BiPAP. Initial ABG was 7.32/85/56/43. Repeat after BiPAP placement was 7.45/49/100/34. Upon re-evaluation by another provider in the ED see having any abdominal pain. And hence is admitted here for further treatment for her hypoxia and hypercapnia. Her chest x-ray showed mild atelectasis in the lower lung zone. Moderate size hiatal hernia. She will continue on BiPAP which was recently ordered by pulmonary team due to recent hypercapnic respiratory failure presentation. Will need BiPAP at night and p.r.n. during daytime repeat ABG with mild respiratory acidosis still present. She will qualify for Trilogy for obesity hypoventilation as noted from her pulmonary consultation. However cost prohibited from utilizing this. She would need noninvasive ventilator at discharge. Will need to consult Pulmonary PT OT to see AFib RVR now on Cardizem drip new diagnosis. Already on anticoagulation with Xarelto. Will titrate diltiazem drip echo with LVEF 60-65% grade 1 diastolic dysfunction no significant valvular abnormality on 05/09/2024 DVT prophylaxis on rivaroxaban Hypertension Hyperlipidemia Hypothyroidism recent TSH from 05/09/2024 was 9.24 dose has been increased. Will recheck Recurrent UTI History of DVT on anticoagulation Prediabetes Anxiety depression Code status full code Subjective Date/time seen: 06/25/24 15:24 Interval history: Overnight patient went to AFib with are and has been started on diltiazem drip. Patient denies any shortness of breath per se her abdominal pain has improved today. No nausea vomiting. ABG reviewed Review of Systems Review of Systems: All systems reviewed & are unremarkable except as noted in HPI and below Exam Narrative: GENERAL: Well-appearing, Obese, and in no acute distress. HEAD: Normocephalic, atraumatic. EYES: PERRLA and EOMI. ENT: Nares clear, no rhinorrhea or epistaxis. Mucous membranes moist. NECK: Supple. CHEST: Clear to auscultation. No respiratory distress. HEART: Regular rate and rhythm. No murmur heard. Normal peripheral pulses. ABDOMEN: Soft, distended pannus with tenderness is left lumbar left upper quadrant, normal active bowel sounds. EXTREMITIES: Normal range of motion. No edema. SKIN: Warm, dry, no rash. NEURO: No focal deficits. Alert and oriented x3. PSYCH: Normal mood and affect. Objective Data Vital Signs Vital Signs: Vital Signs - 24 hr 06/24/24 16:00 06/24/24 20:17 06/24/24 20:00 Temperature 97.2 F L 97.8 F Pulse
[2024-06-25] MEDS: RIVAROXABAN 20 MG TABLET PO (17:52)
[2024-06-25] MEDS: HYDROcodone/acetaminophen (*CRX) 5-325 MG TABLET 1 TAB PO (17:52)
[2024-06-25 19:55] LABS: Free T4 Free Thyroxine Reflex 1.15 ng/dL (0.78-2.19)
[2024-06-25] MEDS: dilTIAZem 100 MG/100 ML 100 MG/100 ML BAG 10 MG IV CONT (20:53)
[2024-06-25 20:57] LABS: Total Triiodothyronine (T3) 0.75 NG/ML (0.97-1.69)
[2024-06-25] MEDS: SIMVASTATIN 20 MG TABLET PO (20:57)
[2024-06-26] VITALS (32 sets, daily range): BP systolic 106–157; BP diastolic 34–123; PULSE 51–141; RESP 16–22; TEMP 36–36.9; O2SAT 92–100
--- NOTE | 2024-06-26 02:09 | PC.NURSE ---
Patient only wore bipap maybe an hour. Refused it saying if she could get a mask without the head contraption she might be able to wear it.
[2024-06-26] MEDS: LEVOTHYROXINE SODIUM 100 MCG TABLET PO (05:32)
[2024-06-26] MEDS: LEVOTHYROXINE SODIUM 88 MCG TABLET PO (05:32)
[2024-06-26] MEDS: dilTIAZem 100 MG/100 ML 100 MG/100 ML BAG 10 MG IV CONT ×2 (05:34→16:23)
[2024-06-26 05:35] LABS: Basophils Percent Auto 0.3 % (0.2-1.2); Eosinophils Absolute Auto 0.1 K/mm3 (0-0.3); Eosinophils Percent Auto 1.9 % (0-4.4); Hematocrit 41.7 % (37.0-47.0); Hemoglobin 12.6 g/dL (12.0-15.0); Immature Granulocyte Absolute 0.02 K/mm3 (0.00-0.031); Immature Granulocyte Percent A 0.3 % (0-0.5); Lymphocytes Absolute Auto 1.46 K/mm3 (0.9-3.2); Lymphocytes Percent Auto 23.5 % (18.3-44.2); Mean Corpuscular HGB Conc 30.2 g/dl (32-36); Mean Corpuscular Hemoglobin 30.7 pg (26-34); Mean Corpuscular Volume 101.7 fl (80-100); Mean Platelet Volume 10.4 fl (7.4-10.4); Monocytes Absolute Auto 0.8 K/mm3 (0.1-0.6); Monocytes Percent Auto 12.4 % (2.6-8.5); Neutrophils Absolute Auto 3.8 K/mm3 (1.3-6.7); Neutrophils Percent Auto 61.6 % (45.5-73.1); Platelet Count Result 157 k/mm3 (150-375); Red Cell Distribution Width 14.2 % (11.5-14.5); White Blood Count 6.2 K/mm3 (4.5-10.0)
[2024-06-26 06:03] LABS: Alanine Aminotransferase 9 U/L (6-35); Albumin Level 2.9 g/dL (3.5-5.1); Alkaline Phosphatase 51 U/L (38-126); Aspartate Amino Transferase 19 U/L (14-36); Bilirubin,Total 0.5 mg/dL (0.2-1.3); Blood Urea Nitrogen 18 mg/dL (7-17); Calcium 8.6 mg/dL (8.4-10.2); Carbon Dioxide > 40 mmol/L (22-30); Chloride 94 mmol/L (98-107); Estimated CRCL calculation 98 ml/min; Estimated Glomerular Filt Rate > 60; Glucose 100 mg/dL (65-110); Potassium 4.4 mmol/L (3.4-5.0); Sodium 138 mmol/L (137-145)
[2024-06-26] MEDS: MAGNESIUM OXIDE 200 MG TABLET PO ×2 (09:53→21:06)
[2024-06-26] MEDS: POTASSIUM CHLORIDE 20 MEQ ER TABLET PO ×2 (09:53→16:24)
[2024-06-26] MEDS: ESCITALOPRAM OXALATE 10 MG TABLET 20 MG PO (09:53)
[2024-06-26] MEDS: FERROUS SULFATE 325 MG TABLET DR PO ×2 (09:53→16:24)
[2024-06-26] MEDS: TOLNAFTATE 1% POWDER 45 GM BTL 1 APPLIC TOPICAL ×2 (09:54→21:11)
[2024-06-26] MEDS: FUROSEMIDE 40 MG TABLET PO (09:55)
[2024-06-26] MEDS: METOPROLOL SUCCINATE EXT REL 25 MG TABCR PO (10:09)
--- NOTE | 2024-06-26 10:35 | PM.CNCAR ---
Assessment and Plan Assessment and plan (1) Paroxysmal atrial flutter: Code(s): I48.92 - Unspecified atrial flutter Status: Acute Assessment and Plan: Probably due to morbid obesity, respiratory status. Rapid. [id number] 2. Already on Xarelto for history of DVT. 05/09/24 Echo: EF 60-65%, grade I diastolic dysfunction (E/e' 12), trace MR. On Diltiazem drip. Start Sotalol 80 mg PO every 12 hrs. Check EKG 1-2 post dose for 5 doses. Stop Metoprolol. (2) Morbid obesity: Code(s): E66.01 - Morbid (severe) obesity due to excess calories Status: Acute (3) Mixed hyperlipidemia: Code(s): E78.2 - Mixed hyperlipidemia Status: Acute Assessment and Plan: On Simvastatin. History of Present Illness History of Present Illness Consult date/time: 06/26/24 10:35 Reason For Visit: Uti, hypercapnia Narrative: 73 yr old woman admitted for sob 3 days ago found to have UTI and respiratory failure. She has a history of morbid obesity, DVT in left leg in 2019 on Xarelto, dyslipidemia, former smoking. Reports she does have left lower quadrant pain. Reports she feels fatigue, but no longer sob. Denies chest pains. She is limited at walking in her house due to fatigue and LEAL and knee pains. Denies orthopnea, PND, edema, dizziness, palpitations. Review of Systems Review of Systems: All systems reviewed & are unremarkable except as noted in HPI and below Constitutional: Constitutional: Reports as per HPI, Denies chills, Reports fatigue and Denies fever(s) Cardiovascular: Cardiovascular: Reports as per HPI, Denies chest pain and Denies irregular heart rhythm Respiratory: Respiratory: Reports as per HPI and Reports dyspnea Gastrointestinal: Gastrointestinal: Reports as per HPI and Reports abdominal pain Genitourinary: Genitourinary: Reports as per HPI and Denies dysuria Musculoskeletal: Musculoskeletal: Reports as per HPI and Reports arthralgias Neurologic: Reports as per HPI, Denies dizziness and Denies syncope [facility] Past Medical History Medical History Chronic anticoagulation Deep venous thrombosis Depression Detached retina (12/31/14) History of venous thromboembolism Hypertension Hypothyroidism Metabolic syndrome Mixed hyperlipidemia Morbid obesity Prediabetes Small bowel obstruction (06/2011) Secondary to incarcerated incisional hernia. Surgical History Surgical History History of cataract extraction (2013) History of section History of incisional hernia repair (06/27/11) Incarcerated incisional hernia repair with mesh. History of total hysterectomy (2002) Family History Family History (Updated 06/23/24 @ 21:34 by Jatin Jurado RN) Father Esophageal cancer Mother Sepsis Heart disease Sibling GERD (gastroesophageal reflux disease) Other No family history of cardiovascular disease Social History Social History Social History: Caffeine-None Surrogate medical decision maker: Arnel Griffith, son. Code status: Full code. Smoking packs per day: 1 Smoking cigarettes per day: 20.0 Years smoked: 33 Smoking pack-years: 33.00 Smoking status: Former smoker Smoking end date: 05/03/96 Alcohol intake: current Drinks per week: 1 Substance use: former Substance use type: does not use Do You Feel Safe in your Home?: Yes Lack of Transportation: YES Lack of Food: Never True Current Housing: I Have Housing Concerned About Future Housing: No Difficulty Paying Gas/Electric Bills: No Difficulty Paying for Meds: No Currently Unemployed: No Education: Bachelor's Degree Difficulty w/ Childcare or Family Care: No Living arrangements: alone Additional living arrangements comments: Lives in a ranch style home in [place]. [place]
--- NOTE | 2024-06-26 10:42 | ECG_ITS ---
Test Date: 2024-06-26 12:24:58 Measurements Intervals [place] Rate: 94 P: 0 ME: 0 QRS: 230 QRSD: 138 T: -29 QT: 371 QTc: 466 Interpretive Statements ATRIAL FLUTTER INDETERMINATE AXIS RIGHT BUNDLE BRANCH BLOCK [120+ ms QRS DURATION, UPRIGHT V1, 40+ ms S IN I/aVL/V4/V5/V6] Compared to ECG 06/25/2024 01:51:01 RVR NO LONGER PRESENT Electronically Signed On 06-27-2024 15:24:50 CDT by Kadeem Cherry M.D.
[2024-06-26] MEDS: SOTALOL HCL 80 MG TABLET PO ×2 (11:20→21:06)
--- NOTE | 2024-06-26 13:29 | PM.IMPN ---
Progress Note: A&P Assessment and Plan (1) Acute hypercapnic respiratory failure: Code(s): J96.02 - Acute respiratory failure with hypercapnia Status: Acute (2) Morbid obesity with BMI of 70 and over, adult: Code(s): E66.01 - Morbid (severe) obesity due to excess calories; Z68.45 - Body mass index [BMI] 70 or greater, adult Status: Acute (3) Acute kidney injury: Code(s): N17.9 - Acute kidney failure, unspecified Status: Acute (4) Obesity hypoventilation syndrome: Code(s): E66.2 - Morbid (severe) obesity with alveolar hypoventilation Status: Acute (5) Physical deconditioning: Code(s): R53.81 - Other malaise Status: Acute Plan This is a 73-year-old female who presents to the ED with complaint of shortness of breath and questionable abdominal pain. EMS was called. Patient was hypoxic when EMS arrived to the facility. He was placed on oxygen. Was transported to the ED. in the ED initially she complained of left lower quadrant pain and was plan to get the CT however required a bariatric scanner and hence was placed on Garza weight least. There was mild tenderness noted on the left lower quadrant. UA did show a UTI and was started on Rocephin. Added Flagyl for coverage for possible diverticulitis. X-ray KUB and ultrasound showed possible stone on right kidney without hydronephrosis. ABG was performed which showed respiratory acidosis with hypercapnia. She was placed on BiPAP. Initial ABG was 7.32/85/56/43. Repeat after BiPAP placement was 7.45/49/100/34. Upon re-evaluation by another provider in the ED see having any abdominal pain. And hence is admitted here for further treatment for her hypoxia and hypercapnia. Her chest x-ray showed mild atelectasis in the lower lung zone. Moderate size hiatal hernia. She will continue on BiPAP which was recently ordered by pulmonary team due to recent hypercapnic respiratory failure presentation. Will need BiPAP at night and p.r.n. during daytime repeat ABG with mild respiratory acidosis still present. She will qualify for Trilogy for obesity hypoventilation as noted from her pulmonary consultation. However cost prohibited from utilizing this. She would need noninvasive ventilator at discharge. Will need to consult Pulmonary PT OT to see AFib RVR now on Cardizem drip new diagnosis. Already on anticoagulation with Xarelto. Started on diltiazem drip echo with LVEF 60-65% grade 1 diastolic dysfunction no significant valvular abnormality on 05/09/2024. Was rate controlled however when it AFib with RVR again this a.m.. Cardiology consulted. Started on showed a 9 DVT prophylaxis on rivaroxaban Hypertension Hyperlipidemia Hypothyroidism recent TSH from 05/09/2024 was 9.24 dose has been increased. Check at 7.27. Recurrent UTI History of DVT on anticoagulation Prediabetes Anxiety depression Code status full code Subjective Date/time seen: 06/26/24 13:29 Interval history: She went back into AFib with RVR. Metoprolol ordered. Cardiology consulted. Abdominal pain has resolved but still has fullness in the area. Review of Systems Review of Systems: All systems reviewed & are unremarkable except as noted in HPI and below Exam Narrative: GENERAL: Well-appearing, Obese, and in no acute distress. HEAD: Normocephalic, atraumatic. EYES: PERRLA and EOMI. ENT: Nares clear, no rhinorrhea or epistaxis. Mucous membranes moist. NECK: Supple. CHEST: Clear to auscultation. No respiratory distress. HEART: Regular rate and rhythm. No murmur heard. Normal peripheral pulses. ABDOMEN: Soft, distended pannus nontender started on, normal active bowel sounds. EXTREMITIES: Normal range of motion. No edema. SKIN: Warm, dry, no rash. NEURO: No focal deficits. Alert and oriented x3. PSYCH: Normal mood and affect. Objective Data Vital Signs Vital Signs: Vital Signs - 24 hr 06/25/24 14:00 06/25/24 14:30 06/25/24 16:00 Temper
--- NOTE | 2024-06-26 13:41 | PC.NURSE ---
1341-Update Dr Hampton patients current heart rate and rhyth, 90s, afib/flutter. Resume current care
--- NOTE | 2024-06-26 14:47 | PM.CNPUL ---
Assessment and Plan Assessment and plan (1) Obesity hypoventilation syndrome: Code(s): E66.2 - Morbid (severe) obesity with alveolar hypoventilation Status: Acute Assessment and Plan: Patient with morbid obesity, BMI 71.2. No history tobacco use, no history of COPD, asthma or recurrent pneumonias. TSH 7.27. Free T4 1.15. patient presents to [facility] on 06/23/2004 with ABG on 3 L nasal cannula 7.32/86/56. Patient was placed on BiPAP and ABG 3-1/2 hours later was 7.46/50/100. Repeat blood gas on 06/24/2024 on 2 L nasal cannula 7.31/76/69. 06/25/2024 ABG at 5:43 a.m. in the morning on 2.5 L nasal cannula 7.39/66/74. Patient wore BiPAP for an hour and 20 minutes the night of 06/24/2024 and then refused. Patient has obesity hypoventilation syndrome and would benefit from noninvasive ventilation to prevent further deterioration and subsequent hospitalization. Plan: The patient will likely need long-term facility placement in the future most of which can only support BiPAP and not AVAPS-AE m ode. I will place the patient on BiPAP and have adjusted the settings to comfort resulting in a rate of 16, pressures 18/8, inspiratory time 1.2, rise of 5 and 32% FiO2. I will check an ABG in the morning prior to removal and an overnight oximetry on these settings. Discussed with Dr. Sesay, will follow with you. History of Present Illness History of Present Illness Consult date: 06/26/24 Chief complaint: Uti, hypercapnia Narrative: 06/26/2024: This is a new pulmonary consult for chronic hypercarbic respiratory failure 73-year-old with a history of morbid obesity, BMI 71.2, obesity hypoventilation syndrome diagnosed in 05/2024, and depression. Patient was recently discharged to [facility] and was supposedly on 1 L nasal cannula oxygen but they were not supplying this. Patient was admitted to the hospital on 05/03/2024 through 05/12/2024. pulmonary was consulted for chronic hypercarbic respiratory failure and the patient was diagnosed with obesity hypoventilation syndrome. Per the discharge plan: Non-invasive positive pressure device is not being pursued. The patient asked about the out of pocket cost. There is probably going to be some co-pay for her to have this in the home. She is financially stretched, cannot add any additional costs. She wants to return to her home after going to [facility] for [facility]. patient presents to [facility] on 06/23/2004 with Abdominal pain. She was too large to have a CT scan. She was diagnosed with the urinary tract infection And was started on ceftriaxone. Flagyl was added empirically for possible diverticulitis. White blood cell count 5.3, serum bicarbonate 36, creatinine 0.7 BNP was 269, ABG on 3 L nasal cannula 7.32/86/56. Patient was placed on BiPAP and ABG 3-1/2 hours later was 7.46/50/100. Repeat blood gas on 06/24/2024 on 2 L nasal cannula 7.31/76/69. 06/25/2024 ABG at 5:43 a.m. in the morning on 2.5 L nasal cannula 7.39/66/74. Patient wore BiPAP for an hour and 20 minutes the night of 06/24/2024 and then refused. TSH 7.27. Free T4 1.15. 06/26/24: Currently the patient is on 2 L nasal cannula oxygen with saturations 94%. She is in no respiratory distress and denies any respiratory issues at rest. The patient last walks 6 months ago and she stopped walking because she is too weak. The patient gained weight over the last 5 years and is currently 194 kg with a BMI of 71.2. Patient denies asthma, COPD or recurrent pneumonias. Patient smoked tobacco from age [age]-1/2 pack a day for total of 3.5 pack years. Patient was exposed to secondhand smoke from his mother and from her until 2019 when he . 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 Patient denies sandblasting, welding, asbestos were, professional painting, steel tandem mill roller, mud car worker, brick work or mining. DATA 06/23/24: EXAMINAT
[2024-06-26] MEDS: RIVAROXABAN 20 MG TABLET PO (16:24)
[2024-06-26] MEDS: SIMVASTATIN 20 MG TABLET PO (21:06)
--- NOTE | 2024-06-26 22:00 | ECG_ITS ---
Test Date: 2024-06-26 22:28:25 Measurements Intervals [place] Rate: 74 P: 0 CO: 0 QRS: 66 QRSD: 141 T: -39 QT: 516 QTc: 575 Interpretive Statements ATRIAL FLUTTER/TACHYCARDIA INDETERMINATE AXIS RIGHT BUNDLE BRANCH BLOCK [120+ ms QRS DURATION, UPRIGHT V1, 40+ ms S IN I/aVL/V4/V5/V6] NO SIGNIFICANT CHANGES Electronically Signed On 06-27-2024 15:41:21 CDT by Kadeem Cherry M.D.
[2024-06-27] VITALS (25 sets, daily range): BP systolic 100–141; BP diastolic 47–66; PULSE 52–84; RESP 16–22; TEMP 36.4–36.7; O2SAT 91–100
[2024-06-27 05:43] LABS: Basophils Percent Auto 0.4 % (0.2-1.2); Eosinophils Absolute Auto 0.1 K/mm3 (0-0.3); Eosinophils Percent Auto 2.3 % (0-4.4); Hematocrit 40.4 % (37.0-47.0); Hemoglobin 12.6 g/dL (12.0-15.0); Immature Granulocyte Absolute 0.02 K/mm3 (0.00-0.031); Immature Granulocyte Percent A 0.4 % (0-0.5); Lymphocytes Absolute Auto 1.43 K/mm3 (0.9-3.2); Lymphocytes Percent Auto 25.2 % (18.3-44.2); Mean Corpuscular HGB Conc 31.2 g/dl (32-36); Mean Corpuscular Hemoglobin 31.4 pg (26-34); Mean Corpuscular Volume 100.7 fl (80-100); Mean Platelet Volume 10.1 fl (7.4-10.4); Monocytes Absolute Auto 0.6 K/mm3 (0.1-0.6); Monocytes Percent Auto 11.1 % (2.6-8.5); Neutrophils Absolute Auto 3.5 K/mm3 (1.3-6.7); Neutrophils Percent Auto 60.6 % (45.5-73.1); Platelet Count Result 151 k/mm3 (150-375); Red Blood Count 4.01 M/mm3 (4.2-5.4); Red Cell Distribution Width 14.1 % (11.5-14.5); White Blood Count 5.7 K/mm3 (4.5-10.0)
[2024-06-27 05:45] LABS: Alveolar/Arterial O2 Gradient 91.9 mmHg; Base Excess ABG 11.9 mEq/l (+/-2.0); Fractional Inspired Oxygen 32 %; HCO3 ABG 38.5 mEq/l (22.0-26.0); Oxygen Content ABG 17.4 %vol (16.0-22.0); Oxygen Saturation ABG 93.4 % (95.0-100.0); Oxyhemoglobin 92.9 % THb (90.0-100.0); PCO2 ABG 59.1 mmHg (35.0-45.0); PO2 ABG 67.1 mmHg (80.0-100.0); Total Hemoglobin 13.3 g/dL (12.0-18.0); pH ABG 7.432 (7.350-7.450)
[2024-06-27 05:50] LABS: Device BIPAP; Expiratory Pressure 8 cmH2O; Inspiratory Pressure 18 cmH2O; Modified Allen's Test Pass; Site Drawn RIGHT RADIAL
[2024-06-27] MEDS: LEVOTHYROXINE SODIUM 88 MCG TABLET PO (06:08)
[2024-06-27] MEDS: LEVOTHYROXINE SODIUM 100 MCG TABLET PO (06:08)
[2024-06-27 06:20] LABS: Alanine Aminotransferase 9 U/L (6-35); Albumin Level 2.8 g/dL (3.5-5.1); Alkaline Phosphatase 58 U/L (38-126); Aspartate Amino Transferase 16 U/L (14-36); Bilirubin,Total 0.6 mg/dL (0.2-1.3); Blood Urea Nitrogen 20 mg/dL (7-17); Calcium 8.4 mg/dL (8.4-10.2); Carbon Dioxide > 40 mmol/L (22-30); Chloride 94 mmol/L (98-107); Estimated CRCL calculation 98 ml/min; Estimated Glomerular Filt Rate > 60; Glucose 97 mg/dL (65-110); Potassium 3.7 mmol/L (3.4-5.0); Sodium 137 mmol/L (137-145)
[2024-06-27 07:55] LABS: NT Pro B Type Natriuretic Pept 4440 pg/mL (19.9-100)
--- NOTE | 2024-06-27 08:03 | PM.PNCARD ---
Progress Note: A&P Assessment and Plan (1) Paroxysmal atrial flutter: Code(s): I48.92 - Unspecified atrial flutter Status: Acute Assessment and Plan: In atrial flutter with rate controlled. Probably due to morbid obesity, respiratory status. [id number] 2. Already on Xarelto for history of DVT. 05/09/24 Echo: EF 60-65%, grade I diastolic dysfunction (E/e' 12), trace MR. Started 06/26/24 Sotalol 80 mg PO every 12 hrs. Check EKG 1-2 post dose for 5 doses. Stopped Diltiazem. Reviewed EKG, QTc interval does not appear to be prolonged. (2) Morbid obesity: Code(s): E66.01 - Morbid (severe) obesity due to excess calories Status: Acute (3) Mixed hyperlipidemia: Code(s): E78.2 - Mixed hyperlipidemia Status: Acute Assessment and Plan: On Simvastatin. Subjective Date/time seen: 06/27/24 08:03 Interval history: On Bipap. Denies cheset pain or sob. Exam Const: General: cooperative, healthy appearing, comfortable and obese Nutritional Appearance: obese Orientation/consciousness: oriented to person, oriented to place and oriented to time Resp: Auscultation: clear to auscultation bilaterally, no crackles, no rales, no rhonchi and no wheezes Cardio: Rate: regular rate Rhythm: abnormal rhythm Heart sounds: no murmurs Peripheral pulses: posterior tibial pulses present Neuro: General: oriented to person, oriented to place and oriented to time Extrem: Right lower extremity: no edema Left lower extremity: no edema Objective Data Vital Signs Vital Signs: Vital Signs - 24 hr 06/26/24 09:04 06/26/24 09:56 06/26/24 10:09 Temperature Pulse Rate 141 H 140 H Respiratory Rate Blood Pressure 140/87 Pulse Oximetry 94 95 Oxygen Delivery Nasal Cannula Oxygen Flow Rate 4 Fraction of Inspired Oxygen 36 06/26/24 11:16 06/26/24 11:20 06/26/24 10:00 Temperature Pulse Rate 141 H 140 H 140 H Respiratory Rate Blood Pressure 157/123 H Pulse Oximetry Oxygen Delivery Oxygen Flow Rate Fraction of Inspired Oxygen 06/26/24 11:48 06/26/24 12:00 06/26/24 13:58 Temperature 97.1 F L Pulse Rate 119 H 91 85 Respiratory Rate 18 Blood Pressure 108/52 L Pulse Oximetry 96 Oxygen Delivery Oxygen Flow Rate Fraction of Inspired Oxygen 06/26/24 14:00 06/26/24 10:00 06/26/24 12:00 Temperature Pulse Rate 72 141 H 91 Respiratory Rate Blood Pressure 117/59 L 140/87 108/52 L Pulse Oximetry Oxygen Delivery Oxygen Flow Rate Fraction of Inspired Oxygen 06/26/24 14:00 06/26/24 15:20 06/26/24 15:20 Temperature Pulse Rate 72 76 Respiratory Rate 16 Blood Pressure 117/59 L Pulse Oximetry 95 95 Oxygen Delivery BiPAP BiPAP Oxygen Flow Rate Fraction of Inspired Oxygen 32 06/26/24 16:00 06/26/24 15:35 06/26/24 16:23 Temperature 96.8 F L Pulse Rate 62 82 82 Respiratory Rate 22 H Blood Pressure 115/61 115/61 115/34 L Pulse Oximetry 92 Oxygen Delivery Oxygen Flow Rate Fraction of Inspired Oxygen 06/26/24 16:00 06/26/24 16:00 06/26/24 18:00 Temperature Pulse Rate 84 82 89 Respiratory Rate 22 H Blood Pressure Pulse Oximetry 92 Oxygen Delivery BiPAP Oxygen Flow Rate Fraction of Inspired Oxygen 32 06/26/24 18:00 06/26/24 18:32 06/26/24 20:00 Temperature Pulse Rate 94 97 97 Respiratory Rate 22 H Blood Pressure 113/47 L 113/47 L Pulse Oximetry 93 93 Oxygen Delivery BiPAP Oxygen Flow Rate Fraction of Inspired Oxygen 30 06/26/24 20:10 06/26/24 21:06 06/26/24 21:08 Temperature 98 F Pulse Rate 73 76 75 Respiratory Rate 20 16 Blood Pressure 125/60 Pulse Oximetry 97 98 Oxygen Delivery BiPAP Oxygen Flow Rate Fraction of Inspired Oxygen 06/26/24 20:00 06/26/24 20:00 06/26/24 21:58 Temperature 98.4 F Pulse Rate 78 51 L 75 Respiratory Rate 20 Blood Pressure 125/60 116/56 L Pulse Oximetry 94 Oxygen Delivery Oxy
--- NOTE | 2024-06-27 08:07 | PC.NURSE ---
Dr. Hampton informed of pt's lengthening QTC interval. EKG was reviewed
--- NOTE | 2024-06-27 08:16 | PM.PNPUL ---
Progress Note: A&P Assessment and Plan (1) Obesity hypoventilation syndrome: Code(s): E66.2 - Morbid (severe) obesity with alveolar hypoventilation Status: Acute Assessment and Plan: Patient with morbid obesity, BMI 71.2. No history tobacco use, no history of COPD, asthma or recurrent pneumonias. TSH 7.27. Free T4 1.15. patient presents to [facility] on 06/23/2004 with ABG on 3 L nasal cannula 7.32/86/56. Patient was placed on BiPAP and ABG 3-1/2 hours later was 7.46/50/100. Repeat blood gas on 06/24/2024 on 2 L nasal cannula 7.31/76/69. 06/25/2024 ABG at 5:43 a.m. in the morning on 2.5 L nasal cannula 7.39/66/74. Patient wore BiPAP for an hour and 20 minutes the night of 06/24/2024 and then refused. Patient has obesity hypoventilation syndrome and would benefit from noninvasive ventilation to prevent further deterioration and subsequent hospitalization. Plan: The patient will likely need care home facility placement in the future most of which can only support BiPAP and not AVAPS-AE m ode. I will place the patient on BiPAP and have adjusted the settings to comfort resulting in a rate of 16, pressures 18/8, inspiratory time 1.2, rise of 5 and 32% FiO2. I will check an ABG in the morning prior to removal and an overnight oximetry on these settings. 06/26/24: Patient wore hospital BiPAP with a rate of 16, pressures 18/8, inspiratory time 1.2 seconds, rise of 5 which is are slowest and 32% FiO2. The patient used a fullface mask and said that she slept very well. Better than she has slept in a couple of weeks. Currently she is on 2 L nasal cannula saturations 95% and is in no respiratory distress. White blood cell count 5.7, creatinine 0.8. On these BiPAP settings the patient had an ABG prior to removal with a pH of 7.43/59/67. Patient had an overnight oximetry on these settings with recording duration of 7 hours and 9 minutes. Average saturation 91%. Low saturation 88%. Time with saturation less than or equal to 88% was 0 minutes. Oxygen desaturation index 1.8. Plan: Current BiPAP settings provide adequate ventilation and oxygenation. Patient should continue these settings with naps and when she sleeps at night. Discharge location still being determined. Once we know the patient's discharge location, we can help make arrangements for BiPAP with 3 L bleed in at night. Please let the respiratory tech, Rebecca Navarrete, know the discharge location as soon as possible. Discussed with Dr. Sesay, will follow with you. Subjective Date/time seen: 06/27/24 08:16 Interval history: 06/26/2024: This is a new pulmonary consult for chronic hypercarbic respiratory failure 73-year-old with a history of morbid obesity, BMI 71.2, obesity hypoventilation syndrome diagnosed in 05/2024, and depression. Patient was recently discharged to [facility] and was supposedly on 1 L nasal cannula oxygen but they were not supplying this. Patient was admitted to the hospital on 05/03/2024 through 05/12/2024. pulmonary was consulted for chronic hypercarbic respiratory failure and the patient was diagnosed with obesity hypoventilation syndrome. Per the discharge plan: Non-invasive positive pressure device is not being pursued. The patient asked about the out of pocket cost. There is probably going to be some co-pay for her to have this in the home. She is financially stretched, cannot add any additional costs. She wants to return to her home after going to [facility] for Rehab. patient presents to [facility] on 06/23/2004 with Abdominal pain. She was too large to have a CT scan. She was diagnosed with the urinary tract infection And was started on ceftriaxone. Flagyl was added empirically for possible diverticulitis. White blood cell count 5.3, serum bicarbonate 36, creatinine 0.7 BNP was 269, ABG on 3 L nasal cannula 7.32/86/56. Patient was placed on BiPAP and
[2024-06-27] MEDS: FERROUS SULFATE 325 MG TABLET DR PO ×2 (09:44→18:26)
[2024-06-27] MEDS: ESCITALOPRAM OXALATE 10 MG TABLET 20 MG PO (09:44)
[2024-06-27] MEDS: FUROSEMIDE 40 MG TABLET PO (09:44)
[2024-06-27] MEDS: MAGNESIUM OXIDE 200 MG TABLET PO ×2 (09:45→20:40)
[2024-06-27] MEDS: SOTALOL HCL 80 MG TABLET PO ×2 (09:45→20:40)
[2024-06-27] MEDS: POTASSIUM CHLORIDE 20 MEQ ER TABLET PO ×2 (09:46→18:27)
[2024-06-27] MEDS: TOLNAFTATE 1% POWDER 45 GM BTL 1 APPLIC TOPICAL ×2 (09:51→20:40)
[2024-06-27] MEDS: FLUTICASONE PROPIONATE 0.05% NA SPR 16 GM BTL (*BKC) 1 SPRAY NASAL ×2 (09:52→20:39)
--- NOTE | 2024-06-27 10:59 | ECG_ITS ---
Test Date: 2024-06-27 11:23:18 Measurements Intervals [place] Rate: 72 P: 0 MI: 0 QRS: -18 QRSD: 140 T: -42 QT: 542 QTc: 595 Interpretive Statements ATRIAL FLUTTER/TACHYCARDIA INDETERMINATE AXIS RIGHT BUNDLE BRANCH BLOCK [120+ ms QRS DURATION, UPRIGHT V1, 40+ ms S IN I/aVL/V4/V5/V6] ABNORMAL ECG Compared to ECG 06/26/2024 22:28:25 NO SIGNIFICANT CHANGE Electronically Signed On 06-27-2024 17:58:01 CDT by Nishant Martinez M.D.
--- NOTE | 2024-06-27 14:07 | PM.IMPN ---
Progress Note: A&P Assessment and Plan (1) Acute hypercapnic respiratory failure: Code(s): J96.02 - Acute respiratory failure with hypercapnia Status: Acute (2) Morbid obesity with BMI of 70 and over, adult: Code(s): E66.01 - Morbid (severe) obesity due to excess calories; Z68.45 - Body mass index [BMI] 70 or greater, adult Status: Acute (3) Acute kidney injury: Code(s): N17.9 - Acute kidney failure, unspecified Status: Acute (4) Obesity hypoventilation syndrome: Code(s): E66.2 - Morbid (severe) obesity with alveolar hypoventilation Status: Acute (5) Physical deconditioning: Code(s): R53.81 - Other malaise Status: Acute Plan This is a 73-year-old female who presents to the ED with complaint of shortness of breath and questionable abdominal pain. EMS was called. Patient was hypoxic when EMS arrived to the facility. He was placed on oxygen. Was transported to the ED. in the ED initially she complained of left lower quadrant pain and was plan to get the CT however required a bariatric scanner and hence was placed on Garza weight least. There was mild tenderness noted on the left lower quadrant. UA did show a UTI and was started on Rocephin. Added Flagyl for coverage for possible diverticulitis. X-ray KUB and ultrasound showed possible stone on right kidney without hydronephrosis. ABG was performed on admission which showed respiratory acidosis with hypercapnia. She was placed on BiPAP. Initial ABG was 7.32/85/56/43. Repeat after BiPAP placement was 7.45/49/100/34. Upon re-evaluation by another provider in the ED see having any abdominal pain. And hence is admitted here for further treatment for her hypoxia and hypercapnia. Her chest x-ray showed mild atelectasis in the lower lung zone. Moderate size hiatal hernia. She will continue on BiPAP which was recently ordered by pulmonary team due to recent hypercapnic respiratory failure presentation. Will need BiPAP at night and p.r.n. during daytime repeat ABG with mild respiratory acidosis still present. She will qualify for Trilogy for obesity hypoventilation as noted from her pulmonary consultation. However cost prohibited from utilizing this. She would need noninvasive ventilator at discharge. Pulmonary consulted and arrangement of noninvasive ventilation in process. AFib RVR now on Cardizem drip on 06/25/24. New diagnosis. Already on anticoagulation with Xarelto. Started on diltiazem drip echo with LVEF 60-65% grade 1 diastolic dysfunction no significant valvular abnormality on 05/09/2024. Was rate controlled however when it AFib with RVR again this a.m.. Cardiology consulted. Patient was started on sotalol. Currently rate controlled DVT prophylaxis on rivaroxaban Hypertension Hyperlipidemia Hypothyroidism recent TSH from 05/09/2024 was 9.24 dose has been increased. Check at 7.27. Recurrent UTI with current UTI treated with ceftriaxone. Urine culture no growth antibiotics stopped. Abdominal pain unclear etiology. Initially reported to be on left lower quadrant. This resolved later she complained in her left upper quadrant. Which also resolved. She still feels little lumpiness in the area. She is not able to be accommodated in the CT scanner here. She has been accepted at [facility] for transfer for further evaluation with regard to this. The pain has resolved I also discussed with the patient about potentially getting this worked up as an outpatient basis. Await bed placement for [facility] for now while stabilizing other medical issues that she has had. History of DVT on anticoagulation with Xarelto Prediabetes Anxiety depression Code status full code Subjective Date/time seen: 06/27/24 14:07 Interval history: No overnight events, AFib controlled, bit short of breath no abdominal pain reported Review of Systems Review of Systems: All systems reviewed & are unremarkable except as noted in HPI and below Exa
--- NOTE | 2024-06-27 15:44 | PCPTNOTE ---
On 06/27/24, the student, [Yaritza Tam], provided care and completed [facility] documentation on this patient. I have reviewed the student's documentation and agree with the findings.
--- NOTE | 2024-06-27 16:03 | PCOTNOTE ---
Attempted to see pt. for occupational therapy evaluation. Pt. declined to participate on this date, stating can't you come back tomorrow, I already tried with PT. Nursing aware.
[2024-06-27] MEDS: RIVAROXABAN 20 MG TABLET PO (18:27)
[2024-06-27] MEDS: SIMVASTATIN 20 MG TABLET PO (20:40)
[2024-06-27] MEDS: HYDROcodone/acetaminophen (*CRX) 5-325 MG TABLET 1 TAB PO (20:48)
--- NOTE | 2024-06-27 23:30 | ECG_ITS ---
Test Date: 2024-06-27 23:34:41 Measurements Intervals [place] Rate: 56 P: 32 SC: 172 QRS: -26 QRSD: 141 T: 16 QT: 460 QTc: 448 Interpretive Statements SINUS BRADYCARDIA BORDERLINE LEFT AXIS DEVIATION [QRS AXIS < -20] RIGHT BUNDLE BRANCH BLOCK [120+ ms QRS DURATION, UPRIGHT V1, 40+ ms S IN I/aVL/V4/V5/V6] ABNORMAL ECG INTERPRETATION BASED ON A DEFAULT AGE OF 40 YEARS Compared to ECG 06/27/2024 11:23:18 Atrial flutter no longer present Electronically Signed On 06-29-2024 12:59:57 CDT by Nishant Martinez M.D.
[2024-06-28] VITALS (19 sets, daily range): BP systolic 101–146; BP diastolic 48–95; PULSE 45–56; RESP 16–24; TEMP 36–36.6; O2SAT 91–98
[2024-06-28] MEDS: LEVOTHYROXINE SODIUM 100 MCG TABLET PO (06:45)
[2024-06-28] MEDS: LEVOTHYROXINE SODIUM 88 MCG TABLET PO (06:45)
[2024-06-28 07:09] LABS: Hematocrit 41.1 % (37.0-47.0); Hemoglobin 12.6 g/dL (12.0-15.0); Mean Corpuscular HGB Conc 30.7 g/dl (32-36); Mean Platelet Volume 11.3 fl (7.4-10.4); Platelet Count Result 183 k/mm3 (150-375); Red Blood Count 4.07 M/mm3 (4.2-5.4); Red Cell Distribution Width 14.4 % (11.5-14.5); White Blood Count 6.2 K/mm3 (4.5-10.0)
[2024-06-28 07:10] LABS: Basophils Percent Auto 0.5 % (0.2-1.2); Eosinophils Absolute Auto 0.2 K/mm3 (0-0.3); Eosinophils Percent Auto 2.4 % (0-4.4); Immature Granulocyte Absolute 0.01 K/mm3 (0.00-0.031); Immature Granulocyte Percent A 0.2 % (0-0.5); Lymphocytes Absolute Auto 1.35 K/mm3 (0.9-3.2); Lymphocytes Percent Auto 21.8 % (18.3-44.2); Monocytes Absolute Auto 0.8 K/mm3 (0.1-0.6); Monocytes Percent Auto 13.1 % (2.6-8.5); Neutrophils Absolute Auto 3.8 K/mm3 (1.3-6.7)
[2024-06-28 07:27] LABS: Alanine Aminotransferase 11 U/L (6-35); Alkaline Phosphatase 53 U/L (38-126); Aspartate Amino Transferase 22 U/L (14-36); Bilirubin,Total 0.6 mg/dL (0.2-1.3); Blood Urea Nitrogen 27 mg/dL (7-17); Calcium 8.5 mg/dL (8.4-10.2); Carbon Dioxide > 40 mmol/L (22-30); Chloride 92 mmol/L (98-107); Estimated CRCL calculation 88 ml/min; Estimated Glomerular Filt Rate > 60; Glucose 100 mg/dL (65-110); Magnesium 2.1 mg/dL (1.6-2.3); Potassium 4.3 mmol/L (3.4-5.0); Sodium 136 mmol/L (137-145)
--- NOTE | 2024-06-28 07:58 | PM.IMPN ---
Progress Note: A&P Assessment and Plan (1) Acute hypercapnic respiratory failure: Code(s): J96.02 - Acute respiratory failure with hypercapnia Status: Acute (2) Morbid obesity with BMI of 70 and over, adult: Code(s): E66.01 - Morbid (severe) obesity due to excess calories; Z68.45 - Body mass index [BMI] 70 or greater, adult Status: Acute (3) Acute kidney injury: Code(s): N17.9 - Acute kidney failure, unspecified Status: Acute (4) Obesity hypoventilation syndrome: Code(s): E66.2 - Morbid (severe) obesity with alveolar hypoventilation Status: Acute (5) Physical deconditioning: Code(s): R53.81 - Other malaise Status: Acute Plan This is a 73-year-old female who presents to the ED with complaint of shortness of breath and questionable abdominal pain. EMS was called. Patient was hypoxic when EMS arrived to the facility. He was placed on oxygen. Was transported to the ED. in the ED initially she complained of left lower quadrant pain and was plan to get the CT however required a bariatric scanner and hence was placed on Garza weight least. There was mild tenderness noted on the left lower quadrant. Complicated UTI and diverticulitis UA did show a UTI and was started on Rocephin. Added Flagyl for coverage for possible diverticulitis. X-ray KUB and ultrasound showed possible stone on right kidney without hydronephrosis. Acute respiratory failure with hypercarbia and hypoxemia, obesity hypoventilation syndrome ABG was performed on admission which showed respiratory acidosis with hypercapnia. She was placed on BiPAP. Initial ABG was 7.32/85/56/43. Repeat after BiPAP placement was 7.45/49/100/34. Her chest x-ray showed mild atelectasis in the lower lung zone. Moderate size hiatal hernia. She will continue on BiPAP which was recently ordered by pulmonary team due to recent hypercapnic respiratory failure presentation. Will need BiPAP at night and p.r.n. during daytime repeat ABG with mild respiratory acidosis still present. She will qualify for Trilogy for obesity hypoventilation as noted from her pulmonary consultation. However cost prohibited from utilizing this. She would need noninvasive ventilator at discharge. Pulmonary consulted and arrangement of noninvasive ventilation in process. AFib RVR now on Cardizem drip on 06/25/24. New diagnosis. Already on anticoagulation with Xarelto. Started on diltiazem drip echo with LVEF 60-65% grade 1 diastolic dysfunction no significant valvular abnormality on 05/09/2024. Was rate controlled however when it AFib with RVR again this a.m.. Cardiology consulted. Patient was started on sotalol. Currently rate controlled Decrease sotalol to 40 mg. P.o. because of bradycardia, stop Cardizem per yarn cleaner DVT prophylaxis on rivaroxaban Hypertension Hyperlipidemia Hypothyroidism recent TSH from 05/09/2024 was 9.24 dose has been increased. Check at 7.27. Recurrent UTI with current UTI treated with ceftriaxone. Urine culture no growth antibiotics stopped. Abdominal pain unclear etiology. Initially reported to be on left lower quadrant. This resolved later she complained in her left upper quadrant. Which also resolved. She still feels little lumpiness in the area. She is not able to be accommodated in the CT scanner here. She has been accepted at [place] for transfer for further evaluation with regard to this. The pain has resolved I also discussed with the patient about potentially getting this worked up as an outpatient basis. Await bed placement for [place] for now while stabilizing other medical issues that she has had. History of DVT on anticoagulation with Xarelto Prediabetes Anxiety depression Code status full code Subjective Date/time seen: 06/28/24 07:58 Interval history: I saw and examined patient today. Patient feels tired, but palpitation has resolved. Patient denies chest pain, headache, abdomen, nausea vo
--- NOTE | 2024-06-28 07:58 | PM.PNCARD ---
Progress Note: A&P Assessment and Plan (1) Paroxysmal atrial flutter: Code(s): I48.92 - Unspecified atrial flutter Status: Acute Assessment and Plan: Back in Sinus rhythm. Probably due to morbid obesity, respiratory status. [id number] 2. Already on Xarelto for history of DVT. 05/09/24 Echo: EF 60-65%, grade I diastolic dysfunction (E/e' 12), trace MR. Started 06/26/24 Sotalol 80 mg PO every 12 hrs. Check EKG 1-2 post dose for 5 doses. Stopped Diltiazem. Reviewed EKG, QTc interval does not appear to be prolonged. Due to bradycardia, decrease Sotalol 40 mg BID. (2) Morbid obesity: Code(s): E66.01 - Morbid (severe) obesity due to excess calories Status: Acute (3) Mixed hyperlipidemia: Code(s): E78.2 - Mixed hyperlipidemia Status: Acute Assessment and Plan: On Simvastatin. Subjective Date/time seen: 06/28/24 07:58 Interval history: Denies cheset pain or sob. Exam Const: General: cooperative, healthy appearing, comfortable and obese Nutritional Appearance: obese Orientation/consciousness: oriented to person, oriented to place and oriented to time Resp: Auscultation: clear to auscultation bilaterally, no crackles, no rales, no rhonchi and no wheezes Cardio: Rate: bradycardic Rhythm: regular rhythm Heart sounds: no murmurs Peripheral pulses: posterior tibial pulses present Neuro: General: oriented to person, oriented to place and oriented to time Extrem: Right lower extremity: no edema Left lower extremity: no edema Objective Data Vital Signs Vital Signs: Vital Signs - 24 hr 06/27/24 09:45 06/27/24 11:53 06/27/24 08:00 Temperature 97.9 F Pulse Rate 74 71 84 Respiratory Rate 20 Blood Pressure 109/63 Pulse Oximetry 97 Oxygen Delivery Oxygen Flow Rate Fraction of Inspired Oxygen 06/27/24 08:00 06/27/24 10:00 06/27/24 12:00 Temperature Pulse Rate 82 71 Respiratory Rate Blood Pressure Pulse Oximetry 96 96 Oxygen Delivery Nasal Cannula Nasal Cannula Oxygen Flow Rate 2 2 Fraction of Inspired Oxygen 06/27/24 12:00 06/27/24 14:00 06/27/24 14:45 Temperature Pulse Rate 71 52 L Respiratory Rate Blood Pressure Pulse Oximetry Oxygen Delivery Nasal Cannula Oxygen Flow Rate 2 Fraction of Inspired Oxygen 06/27/24 16:00 06/27/24 16:00 06/27/24 16:00 Temperature 98.1 F Pulse Rate 55 L 71 71 Respiratory Rate 20 Blood Pressure 100/47 L Pulse Oximetry 98 98 Oxygen Delivery Nasal Cannula Oxygen Flow Rate 2 Fraction of Inspired Oxygen 06/27/24 17:39 06/27/24 20:03 06/27/24 20:12 Temperature 97.8 F Pulse Rate 66 68 Respiratory Rate 20 Blood Pressure 132/56 L Pulse Oximetry 96 97 Oxygen Delivery Nasal Cannula Oxygen Flow Rate 2 Fraction of Inspired Oxygen 06/27/24 20:40 06/27/24 20:00 06/27/24 20:00 Temperature Pulse Rate 68 66 Respiratory Rate Blood Pressure Pulse Oximetry 97 Oxygen Delivery Nasal Cannula Oxygen Flow Rate 2 Fraction of Inspired Oxygen 06/27/24 23:47 06/28/24 00:00 06/28/24 00:00 Temperature 97.6 F Pulse Rate 55 L 55 L Respiratory Rate 16 Blood Pressure 135/60 Pulse Oximetry 91 94 Oxygen Delivery BiPAP Oxygen Flow Rate Fraction of Inspired Oxygen 30 06/28/24 02:42 06/28/24 04:00 06/28/24 04:00 Temperature 97 F L Pulse Rate 52 L 52 L Respiratory Rate 16 16 Blood Pressure 146/95 H Pulse Oximetry 98 94 91 Oxygen Delivery BiPAP BiPAP Oxygen Flow Rate Fraction of Inspired Oxygen 30 06/28/24 04:00 06/28/24 07:29 Temperature 96.8 F L Pulse Rate 47 L 51 L Respiratory Rate 24 H Blood Pressure 112/52 L Pulse Oximetry 95 Oxygen Delivery Oxygen Flow Rate Fraction of Inspired Oxygen Intake/Output Intake/Output: Intake & Output 06/25/24 06/26/24 06/27/24 06/28/24 23:59 23:59 23:59 23:59 Intake Total 1025.4 1878.4 1990 240 Output Total 1900 1200 850 Julio
[2024-06-28] MEDS: POTASSIUM CHLORIDE 20 MEQ ER TABLET PO ×2 (08:50→17:30)
[2024-06-28] MEDS: SOTALOL HCL 40 MG TABLET PO ×2 (08:50→21:01)
[2024-06-28] MEDS: FUROSEMIDE 40 MG TABLET PO (08:50)
[2024-06-28] MEDS: FERROUS SULFATE 325 MG TABLET DR PO ×2 (08:50→17:31)
[2024-06-28] MEDS: MAGNESIUM OXIDE 200 MG TABLET PO ×2 (08:50→21:00)
[2024-06-28] MEDS: ESCITALOPRAM OXALATE 10 MG TABLET 20 MG PO (08:50)
[2024-06-28] MEDS: TOLNAFTATE 1% POWDER 45 GM BTL 1 APPLIC TOPICAL ×2 (08:51→21:01)
[2024-06-28] MEDS: FLUTICASONE PROPIONATE 0.05% NA SPR 16 GM BTL (*BKC) 1 SPRAY NASAL ×2 (08:51→20:59)
--- NOTE | 2024-06-28 09:33 | PM.PNPUL ---
Progress Note: A&P Assessment and Plan (1) Obesity hypoventilation syndrome: Code(s): E66.2 - Morbid (severe) obesity with alveolar hypoventilation Status: Acute Assessment and Plan: Patient with morbid obesity, BMI 71.2. No history tobacco use, no history of COPD, asthma or recurrent pneumonias. TSH 7.27. Free T4 1.15. patient presents to [facility] on 06/23/2004 with ABG on 3 L nasal cannula 7.32/86/56. Patient was placed on BiPAP and ABG 3-1/2 hours later was 7.46/50/100. Repeat blood gas on 06/24/2024 on 2 L nasal cannula 7.31/76/69. 06/25/2024 ABG at 5:43 a.m. in the morning on 2.5 L nasal cannula 7.39/66/74. Patient wore BiPAP for an hour and 20 minutes the night of 06/24/2024 and then refused. Patient has obesity hypoventilation syndrome and would benefit from noninvasive ventilation to prevent further deterioration and subsequent hospitalization. Plan: The patient will likely need [facility] facility placement in the future most of which can only support BiPAP and not AVAPS-AE m ode. I will place the patient on BiPAP and have adjusted the settings to comfort resulting in a rate of 16, pressures 18/8, inspiratory time 1.2, rise of 5 and 32% FiO2. I will check an ABG in the morning prior to removal and an overnight oximetry on these settings. 06/26/24: Patient wore hospital BiPAP with a rate of 16, pressures 18/8, inspiratory time 1.2 seconds, rise of 5 which is are slowest and 32% FiO2. The patient used a fullface mask and said that she slept very well. Better than she has slept in a couple of weeks. Currently she is on 2 L nasal cannula saturations 95% and is in no respiratory distress. White blood cell count 5.7, creatinine 0.8. On these BiPAP settings the patient had an ABG prior to removal with a pH of 7.43/59/67. Patient had an overnight oximetry on these settings with recording duration of 7 hours and 9 minutes. Average saturation 91%. Low saturation 88%. Time with saturation less than or equal to 88% was 0 minutes. Oxygen desaturation index 1.8. Plan: Current BiPAP settings provide adequate ventilation and oxygenation. Patient should continue these settings with naps and when she sleeps at night. Discharge location still being determined. Once we know the patient's discharge location, we can help make arrangements for BiPAP with 3 L bleed in at night. Please let the real estate coordinator, Rebecca Navarrete, know the discharge location as soon as possible. 06/28/24: Patient wore the hospital BiPAP with the above settings from 9:00 p.m. to 3:00 a.m. and slept well. After that the alarms went off and although they re adjusted the machine she had difficulty sleeping. Overall she did well and feels refreshed. Currently she is on 2 L nasal cannula saturations 97%. For her atrial flutter sotalol decreased to 40 mg b.i.d.. Remains on Xarelto. Per care coordination teams note on 06/27/2024 patient's [facility]st choice is [facility]. Care coordination nose the patient will need BiPAP with 3 L bleed in. Plan: From a pulmonary perspective patient is ready to be discharged on these pulmonary medications: Flonase 1 spray each nostril b.i.d.. When she naps or sleeps: BiPAP rate of 16, pressures 18/8, inspiratory time 1.2 seconds, rise of 5 which is are slowest and 3 L bleed in. Oxygen at rest and with activity per living facilities protocol. Currently she is on 2 L nasal cannula saturations 97%. Diuretics per hospitalist and emergency room tech. Follow-up in the Pulmonary Clinic in 4 weeks following discharge. I gave her our business card and informed our media center director school. Discussed with Dr. Kemp, will sing off, call with questions. Subjective Date/time seen: 06/28/24 09:33 Interval history: 06/26/2024: This is a new pulmonary consult for chronic hypercarbic respiratory failure 73-year-old with a history of morbid obesity, BMI 71.2, obesity hypoventilation syndrome diagnose
--- NOTE | 2024-06-28 10:19 | ECG_ITS ---
Test Date: 2024-06-28 10:27:07 Measurements Intervals [place] Rate: 47 P: 37 MS: 180 QRS: -26 QRSD: 141 T: 3 QT: 469 QTc: 418 Interpretive Statements SINUS BRADYCARDIA BORDERLINE LEFT AXIS DEVIATION [QRS AXIS < -20] RIGHT BUNDLE BRANCH BLOCK [120+ ms QRS DURATION, UPRIGHT V1, 40+ ms S IN I/aVL/V4/V5/V6] ABNORMAL ECG Compared to ECG 06/27/2024 23:34:41 No significant changes Electronically Signed On 06-29-2024 13:05:08 CDT by Nishant Martinez M.D.
[2024-06-28] MEDS: HYDROcodone/acetaminophen (*CRX) 5-325 MG TABLET 1 TAB PO (17:30)
[2024-06-28] MEDS: RIVAROXABAN 20 MG TABLET PO (17:31)
[2024-06-28] MEDS: SIMVASTATIN 20 MG TABLET PO (21:00)
[2024-06-29] VITALS (14 sets, daily range): BP systolic 103–132; BP diastolic 44–50; PULSE 44–61; RESP 17–21; TEMP 36.1–36.4; O2SAT 92–100
[2024-06-29] MEDS: LEVOTHYROXINE SODIUM 100 MCG TABLET PO (06:06)
[2024-06-29] MEDS: LEVOTHYROXINE SODIUM 88 MCG TABLET PO (06:06)
--- NOTE | 2024-06-29 07:45 | PM.PNCARD ---
Progress Note: A&P Assessment and Plan (1) Paroxysmal atrial flutter: Code(s): I48.92 - Unspecified atrial flutter Status: Acute Assessment and Plan: Back in Sinus rhythm. Probably due to morbid obesity, respiratory status. [id number] 2. Already on Xarelto for history of DVT. 05/09/24 Echo: EF 60-65%, grade I diastolic dysfunction (E/e' 12), trace MR. Started 06/26/24 Sotalol 80 mg PO every 12 hrs. Check EKG 1-2 post dose for 5 doses. Stopped Diltiazem. Reviewed EKG, QTc interval does not appear to be prolonged. Due to bradycardia, decrease Sotalol 40 mg daily. May d/c home from cardiology standpoint and f/u with me in 1-2 weeks. (2) Morbid obesity: Code(s): E66.01 - Morbid (severe) obesity due to excess calories Status: Acute (3) Mixed hyperlipidemia: Code(s): E78.2 - Mixed hyperlipidemia Status: Acute Assessment and Plan: On Simvastatin. Subjective Date/time seen: 06/29/24 07:45 Interval history: Denies cheset pain or sob. Exam Const: General: cooperative, healthy appearing, comfortable and obese Nutritional Appearance: obese Orientation/consciousness: oriented to person, oriented to place and oriented to time Resp: Auscultation: clear to auscultation bilaterally, no crackles, no rales, no rhonchi and no wheezes Cardio: Rate: bradycardic Rhythm: regular rhythm Heart sounds: no murmurs Peripheral pulses: posterior tibial pulses present Neuro: General: oriented to person, oriented to place and oriented to time Extrem: Right lower extremity: no edema Left lower extremity: no edema Objective Data Vital Signs Vital Signs: Vital Signs - 24 hr 06/28/24 08:50 06/28/24 08:00 06/28/24 08:00 Temperature Pulse Rate 53 L 53 L Respiratory Rate Blood Pressure Pulse Oximetry 94 Oxygen Delivery Nasal Cannula Oxygen Flow Rate 1 Fraction of Inspired Oxygen 06/28/24 10:00 06/28/24 11:19 06/28/24 14:50 Temperature 97.3 F L Pulse Rate 48 L 47 L Respiratory Rate 22 H Blood Pressure 101/48 L Pulse Oximetry 98 Oxygen Delivery Nasal Cannula Oxygen Flow Rate 2 Fraction of Inspired Oxygen 06/28/24 12:00 06/28/24 14:00 06/28/24 12:00 Temperature Pulse Rate 51 L 50 L Respiratory Rate Blood Pressure Pulse Oximetry 98 Oxygen Delivery Nasal Cannula Oxygen Flow Rate 1 Fraction of Inspired Oxygen 06/28/24 16:23 06/28/24 15:04 06/28/24 16:00 Temperature 97.0 F L Pulse Rate 50 L 55 L Respiratory Rate 22 H Blood Pressure 123/54 L Pulse Oximetry 95 95 Oxygen Delivery Nasal Cannula Oxygen Flow Rate 2 Fraction of Inspired Oxygen 06/28/24 16:00 06/28/24 18:00 06/28/24 20:13 Temperature 97.7 F Pulse Rate 55 L 55 L Respiratory Rate 18 Blood Pressure 109/49 L Pulse Oximetry 92 93 Oxygen Delivery Nasal Cannula Oxygen Flow Rate 1 Fraction of Inspired Oxygen 06/28/24 20:00 06/28/24 21:01 06/28/24 20:00 Temperature Pulse Rate 55 L 55 L Respiratory Rate Blood Pressure Pulse Oximetry 93 Oxygen Delivery Nasal Cannula Oxygen Flow Rate 1 Fraction of Inspired Oxygen 06/28/24 23:11 06/28/24 23:28 06/29/24 00:00 Temperature 97.8 F Pulse Rate 56 L 45 L Respiratory Rate 19 16 Blood Pressure 113/57 L Pulse Oximetry 97 98 98 Oxygen Delivery BiPAP BiPAP Oxygen Flow Rate Fraction of Inspired Oxygen 06/29/24 00:00 06/29/24 04:00 06/29/24 04:41 Temperature 97.6 F Pulse Rate 44 L 46 L Respiratory Rate 17 Blood Pressure 132/50 L Pulse Oximetry 98 100 Oxygen Delivery BiPAP Oxygen Flow Rate Fraction of Inspired Oxygen 32 06/29/24 04:00 06/29/24 05:06 Temperature Pulse Rate 46 L 61 Respiratory Rate 21 H Blood Pressure Pulse Oximetry 98 Oxygen Delivery BiPAP Oxygen Flow Rate Fraction of Inspired Oxygen Intake/Output Intake/Output: Intake & Output 06/26/24 06/27/24 06/28/24 06/29/24 23:59
--- NOTE | 2024-06-29 08:22 | PM.IMPN ---
Progress Note: A&P Assessment and Plan (1) Acute hypercapnic respiratory failure: Code(s): J96.02 - Acute respiratory failure with hypercapnia Status: Acute (2) Morbid obesity with BMI of 70 and over, adult: Code(s): E66.01 - Morbid (severe) obesity due to excess calories; Z68.45 - Body mass index [BMI] 70 or greater, adult Status: Acute (3) Acute kidney injury: Code(s): N17.9 - Acute kidney failure, unspecified Status: Acute (4) Obesity hypoventilation syndrome: Code(s): E66.2 - Morbid (severe) obesity with alveolar hypoventilation Status: Acute (5) Physical deconditioning: Code(s): R53.81 - Other malaise Status: Acute Plan This is a 73-year-old female who presents to the ED with complaint of shortness of breath and questionable abdominal pain. EMS was called. Patient was hypoxic when EMS arrived to the facility. He was placed on oxygen. Was transported to the ED. in the ED initially she complained of left lower quadrant pain and was plan to get the CT however required a bariatric scanner and hence was placed on Garza weight least. There was mild tenderness noted on the left lower quadrant. Complicated UTI and diverticulitis UA did show a UTI and was started on Rocephin. Added Flagyl for coverage for possible diverticulitis. X-ray KUB and ultrasound showed possible stone on right kidney without hydronephrosis. Acute respiratory failure with hypercarbia and hypoxemia, obesity hypoventilation syndrome ABG was performed on admission which showed respiratory acidosis with hypercapnia. She was placed on BiPAP. Initial ABG was 7.32/85/56/43. Repeat after BiPAP placement was 7.45/49/100/34. Her chest x-ray showed mild atelectasis in the lower lung zone. Moderate size hiatal hernia. She will continue on BiPAP which was recently ordered by pulmonary team due to recent hypercapnic respiratory failure presentation. Will need BiPAP at night and p.r.n. during daytime repeat ABG with mild respiratory acidosis still present. She will qualify for Trilogy for obesity hypoventilation as noted from her pulmonary consultation. However cost prohibited from utilizing this. She would need noninvasive ventilator at discharge. Pulmonary consulted and arrangement of noninvasive ventilation in process. AFib RVR now on Cardizem drip on 06/25/24. New diagnosis. Already on anticoagulation with Xarelto. Started on diltiazem drip echo with LVEF 60-65% grade 1 diastolic dysfunction no significant valvular abnormality on 05/09/2024. Was rate controlled however when it AFib with RVR again this a.m.. Cardiology consulted. Patient was started on sotalol. Currently rate controlled Decrease sotalol to 40 mg. P.o. because of bradycardia, stop Cardizem per business intelligence etl developer DVT prophylaxis on rivaroxaban Hypertension Hyperlipidemia Hypothyroidism recent TSH from 05/09/2024 was 9.24 dose has been increased. Check at 7.27. Recurrent UTI with current UTI treated with ceftriaxone. Urine culture no growth antibiotics stopped. Abdominal pain unclear etiology. Initially reported to be on left lower quadrant. This resolved later she complained in her left upper quadrant. Which also resolved. She still feels little lumpiness in the area. She is not able to be accommodated in the CT scanner here. She has been accepted at [place] for transfer for further evaluation with regard to this. The pain has resolved I also discussed with the patient about potentially getting this worked up as an outpatient basis. bow pt has no abd pain pt will be discharge to SNF for close monitoring, she is on the waiting list to be transferred to [facility] Subjective Date/time seen: 06/29/24 08:22 Interval history: I saw examined patient today. Patient feels better today, no significant dyspnea and rest, patient also denies palpitation, chest pain, abdomen pain, nausea vomiting diarrhea telemetry showed sinus rhythm. Lucina
[2024-06-29] MEDS: MAGNESIUM OXIDE 200 MG TABLET PO (08:52)
[2024-06-29] MEDS: ESCITALOPRAM OXALATE 10 MG TABLET 20 MG PO (08:52)
[2024-06-29] MEDS: POTASSIUM CHLORIDE 20 MEQ ER TABLET PO (08:53)
[2024-06-29] MEDS: TOLNAFTATE 1% POWDER 45 GM BTL 1 APPLIC TOPICAL (08:53)
[2024-06-29] MEDS: FERROUS SULFATE 325 MG TABLET DR PO (08:53)
[2024-06-29] MEDS: FLUTICASONE PROPIONATE 0.05% NA SPR 16 GM BTL (*BKC) 1 SPRAY NASAL (08:53)
[2024-06-29] MEDS: SOTALOL HCL 40 MG TABLET PO (08:53)
[2024-06-29] MEDS: FUROSEMIDE 40 MG TABLET PO (08:53)
--- NOTE | 2024-06-29 10:40 | PM.DS ---
DS: Admitting Diagnosis Discharge Date 06/29 Admitting Diagnosis (1) Acute hypercapnic respiratory failure: Code(s): J96.02 - Acute respiratory failure with hypercapnia Status: Acute (2) Morbid obesity with BMI of 70 and over, adult: Code(s): E66.01 - Morbid (severe) obesity due to excess calories; Z68.45 - Body mass index [BMI] 70 or greater, adult Status: Acute (3) Acute kidney injury: Code(s): N17.9 - Acute kidney failure, unspecified Status: Acute (4) Obesity hypoventilation syndrome: Code(s): E66.2 - Morbid (severe) obesity with alveolar hypoventilation Status: Acute (5) Physical deconditioning: Code(s): R53.81 - Other malaise Status: Acute DS: Discharge Diagnosis Discharge Diagnosis (1) Acute hypercapnic respiratory failure: Code(s): J96.02 - Acute respiratory failure with hypercapnia Status: Acute (2) Morbid obesity with BMI of 70 and over, adult: Code(s): E66.01 - Morbid (severe) obesity due to excess calories; Z68.45 - Body mass index [BMI] 70 or greater, adult Status: Acute (3) Acute kidney injury: Code(s): N17.9 - Acute kidney failure, unspecified Status: Acute (4) Obesity hypoventilation syndrome: Code(s): E66.2 - Morbid (severe) obesity with alveolar hypoventilation Status: Acute (5) Physical deconditioning: Code(s): R53.81 - Other malaise Status: Acute DS: Summary Hospital Course Hospital Course: This is a 73-year-old female who presents to the ED with complaint of shortness of breath and questionable abdominal pain. EMS was called. Patient was hypoxic when EMS arrived to the facility. He was placed on oxygen. Was transported to the ED. in the ED initially she complained of left lower quadrant pain and was plan to get the CT however required a bariatric scanner and hence was placed on Garza weight least. There was mild tenderness noted on the left lower quadrant. Complicated UTI and diverticulitis UA did show a UTI and was started on Rocephin. Added Flagyl for coverage for possible diverticulitis. X-ray KUB and ultrasound showed possible stone on right kidney without hydronephrosis. Acute respiratory failure with hypercarbia and hypoxemia, obesity hypoventilation syndrome ABG was performed on admission which showed respiratory acidosis with hypercapnia. She was placed on BiPAP. Initial ABG was 7.32/85/56/43. Repeat after BiPAP placement was 7.45/49/100/34. Her chest x-ray showed mild atelectasis in the lower lung zone. Moderate size hiatal hernia. She will continue on BiPAP which was recently ordered by pulmonary team due to recent hypercapnic respiratory failure presentation. Will need BiPAP at night and p.r.n. during daytime repeat ABG with mild respiratory acidosis still present. She will qualify for Trilogy for obesity hypoventilation as noted from her pulmonary consultation. However cost prohibited from utilizing this. She would need noninvasive ventilator at discharge. Pulmonary consulted and arrangement of noninvasive ventilation in process. AFib RVR now on Cardizem drip on 06/25/24. New diagnosis. Already on anticoagulation with Xarelto. Started on diltiazem drip echo with LVEF 60-65% grade 1 diastolic dysfunction no significant valvular abnormality on 05/09/2024. Was rate controlled however when it AFib with RVR again this a.m.. Cardiology consulted. Patient was started on sotalol. Currently rate controlled Decrease sotalol to 40 mg. P.o. because of bradycardia, stop Cardizem per tar pot worker DVT prophylaxis on rivaroxaban Hypertension Hyperlipidemia Hypothyroidism recent TSH from 05/09/2024 was 9.24 dose has been increased. Check at 7.27. Recurrent UTI with current UTI treated with ceftriaxone. Urine culture no growth antibiotics stopped. Abdominal pain unclear etiology. Initially reported to be on left lower quadrant. This resolved later she
--- NOTE | 2024-06-29 15:07 | PCOTNOTE ---
Attempted to see Patient for OT treatment session. Patient refused, stating she is planned to be discharged within the hour, she will continue therapy at the facility she is going to.
== END 2024-06-29 17:34 | DRG 189 ==
LOC: ANHED 05:07 → ANHIMU 20:20 → ANH3MED 06-24 16:50 → ANHIMU 06-25 07:50
PROVIDERS: Emergency Medicine; Internal Medicine Pulmonary Disease; Admitting Provider Internal Medicine; Emergency Provider Emergency Medicine; PCP Family Medicine; Visit Provider Hospitalist
DX: J96.01 Acute respiratory failure with hypoxia (principal); N39.0 Urinary tract infection, site not specified; E66.2 Morbid (severe) obesity with alveolar hypoventilation; Z68.45 Body mass index [BMI] 70 or greater, adult; N17.9 Acute kidney failure, unspecified; I48.92 Unspecified atrial flutter; J96.02 Acute respiratory failure with hypercapnia; E78.2 Mixed hyperlipidemia; E03.9 Hypothyroidism, unspecified; F32.A Depression, unspecified; I48.91 Unspecified atrial fibrillation; I10 Essential (primary) hypertension; Z86.718 Personal history of other venous thrombosis and embolism; Z90.710 Acquired absence of both cervix and uterus; Z79.01 Long term (current) use of anticoagulants; Z87.891 Personal history of nicotine dependence
CPT/HCPCS: 36415; 36600; 71045; 74018; 76775; 80053; 81001; 82375; 82805; 83050; 83605; 83690; 83735; 83880; 84439; 84443; 84480; 84484; 85025; 87086; 87088; 93005; 94002; 94003; 94762; 96361; 96365; 96366; 96367; 96375; 97162; 97166; 97530; 99285; A9270; G0378; J0696; J2060; J2270; J2405; J7030